=== PATIENT | female | born 1960 | race African-American/Black ===

== ENCOUNTER 2017-01-28 11:09 | Inpatient (IN) | payer OTHER ==
[2017-01-28 13:04] VITALS: BMI 18.6
--- NOTE | 2017-01-28 16:28 | HP ---
COWS - Scale Resting Pulse: 0= MO 80 or Below Sweatin=Flushed/Facial Moisture Restless Observation: 3= Extraneous Movement Pupil Size: 2= Moderately Dilated Bone or Joint Aches: 2= Severe Diffuse Aches Runny Nose/ Eye Tearin= Runny Nose/Eyes GI Upset > 30mins: 3= Vomiting/Diarrhea Tremor Observation: 2= Slight Tremor Visible Yawning Observation: 2= >3x During Session Anxiety or Irritability: 2=Irritable/Anxious Goose Flesh Skin: 0=Smooth Skin COWS Score: 20 Admission ROS BHS - HPI Chief Complaint: i need help to stop using heroin and cocaine Allergies/Adverse Reactions: Allergies Allergy/AdvReac Type Severity Reaction Status Date / Time aspirin Allergy Severe Swelling Verified 01/28/17 16:17 History of Present Illness: this 56 years old female with heroin,cocaine dependence,withdrawal symptom,last detox [facility] 11/02 weight loss seizure last 2015 depression hiv since 1985 longest period of sobriety 4 years Exam Limitations: No Limitations - Ebola screening Have you traveled outside of the country in the last 21 days: No Have you been sick,other than usual withdrawal symptoms: No - Review of Systems Constitutional: Chills, Loss of Appetite, Malaise, Night Sweats, Changes in sleep, Weakness, Unintentional Wgt. Loss EENT: reports: Tearing, Nose Congestion, Other (meminished hearing left) Respiratory: reports: No Symptoms reported, Other (asthma) GI: reports: Diarrhea, Nausea, Vomiting, Abdominal cramping : reports: No Symptoms Reported Musculoskeletal: reports: Back Pain, Joint Pain, Muscle Pain, Joint Stiffness Integumentary: reports: Dryness Neuro: reports: Headache, Tremors Endocrine: reports: No Symptoms Reported Hematology: reports: Anemia Psychiatric: reports: No Sypmtoms Reported, Judgement Intact, Mood/Affect Appropiate, Orientated x3, Depressed Patient History - Patient Medical History Hx Anemia: Yes (WAS ON IRON PILL BUT RAN OUT) Hx Asthma: Yes (albuterol inhaler) Hx Chronic Obstructive Pulmonary Disease (COPD): Yes (on symbicort) Hx Cancer: No Hx Cardiac Disorders: No Hx Congestive Heart Failure: No Hx Hypertension: Yes (on med) Hx Hypercholesterolemia: No Hx Pacemaker: No HX Cerebrovascular Accident: No Hx Seizures: No Hx Dementia: No Hx Diabetes: No Hx Gastrointestinal Disorders: No Hx Liver Disease: No Hx Genitourinary Disorders: No Hx Sexually Transmitted Disorders: No Hx Renal Disease (ESRD): No Hx Thyroid Disease: No Hx Human Immunodeficiency Virus (HIV): Yes (SINCE 1985--ON MEDS) Hx Hepatitis C: Yes (treated) Hx Depression: Yes Hx Suicide Attempt: Yes (cutter) Hx Bipolar Disorder: No Hx Schizophrenia: No Other Medical History: no suicidal,no homicidal - Patient Surgical History Past Surgical History: Yes Hx Neurologic Surgery: No Hx Cataract Extraction: No Hx Cardiac Surgery: No Hx Lung Surgery: No Hx Breast Surgery: No Hx Breast Biopsy: No Hx Abdominal Surgery: No Hx Appendectomy: No Hx Cholecystectomy: No Hx Genitourinary Surgery: No Hx Section: No Hx Orthopedic Surgery: Yes (RIGHT HAND--NERVE REPAIR IN 1970s and tendon) Anesthesia Reaction: No - PPD History Previous Implant?: Yes Documented Results: Negative w/proof Date: 03/13/15 Results: 0 mm PPD to be Administered?: Yes - Reproductive History Patient is a Female of Child Bearing Age (11 -55 yrs old): Yes Patient : No - Smoking Cessation Smoking history: Current every day smoker Have you smoked in the past 12 months: Yes Aproximately how many cigarettes per day: 3 Hx Chewing Tobacco Use: No Initiated information on smoking cessation: Yes 'Breaking Loose' booklet given: 01/28/17 - Substance & Tx. History Hx Alcohol Use: No Hx Substance Use: Yes Substance Use Type: Cocaine, Heroin Hx Substance Use Treatment: Yes ([facility] 11/02) - Substances Abused Heroin Route: Inhalation Frequency: Daily Amount used: 10 bags Age of first use: 24 Date of Last Use: 01/27/17 Cocaine Route: Smoking Frequency: 1-3 times last 30 days Amount used: $100 Age of first use: 30 Date of Last Use: 01/25/17 Family Disease History - Family Disease History Family Disease History: Other: Mother (HTN-), Brother (HTN) Admission Physical Exam S - Vital Signs Vital Signs: Vital Signs - 24 hr 01/28/17 12:59 Temperature 95.9 F L Pulse Rate 75 Respiratory 20 Rate Blood Pressure 153/104 - Physical General Appearance: Yes: Moderate Distress, Tremorous, Irritable, Sweating, Anxious HEENTM: Yes: Hearing grossly Normal, Normal ENT Inspection, NEHEMIAS, Pharynx Normal , Nasal Congestion Respiratory: Yes: No Respiratory Distress, Wheezing Neck: Yes: Within Normal Limits, Supple, Trachea in good position Breast: Yes: Breast Exam Deferred Cardiology: Yes: Regular Rhythm, Regular Rate, S1, S2 Abdominal: Yes: Within Normal Limits, Normal Bowel Sounds, Non Tender, Soft Genitourinary: Yes: Within Normal Limits Back: Yes: Within Normal Limits, Normal Inspection, Muscle Spasm Musculoskeletal: Yes: Back pain, Joint Stiffness, Muscle Pain Extremities: Yes: Normal Range of Motion, Tremors Neurological: Yes: Within Normal Limits, forensics team director II-XII NML intact, Alert, Motor Strength 5/5 Integumentary: Yes: Dry Lymphatic: Yes: Within Normal Limits - Diagnostic (1) Anemia Current Visit: No Status: Chronic (2) Asthma Current Visit: No Status: Chronic Qualifiers: Asthma severity: mild intermittent Asthma complication type: uncomplicated Qualified Code(s): J45.20 - Mild intermittent asthma, uncomplicated (3) Cocaine dependence with withdrawal Current Visit: No Status: Chronic (4) GERD (gastroesophageal reflux disease) Current Visit: No Status: Chronic Qualifiers: Esophagitis presence: esophagitis presence not specified Qualified Code(s): K21.9 - Gastro-esophageal reflux disease without esophagitis (5) Hx of AIDS Current Visit: No Status: Chronic (6) Opioid dependence with withdrawal Current Visit: No Status: Chronic (7) PTSD (post-traumatic stress disorder) Current Visit: No Status: Chronic (8) COPD (chronic obstructive pulmonary disease) Current Visit: No Status: Chronic Qualifiers: COPD type: unspecified COPD Qualified Code(s): J44.9 - Chronic obstructive pulmonary disease, unspecified (9) Weight loss Current Visit: Yes Status: Acute Cleared for Admission S - Detox or Rehab [facility] Level of Care: Medically Managed Detox Regimen/Protocol: Methadone [facility] Breath Alcohol Content Breath Alcohol Content: 0 Urine Pregancy Test - Result Urine Test Results: Negative- NO Line Present Urine Drug Screen - Results Drug Screen Negative: No Urine Drug Screen Results: ADRI-Cocaine, OPI-Opiates
[2017-01-28] MEDS ORDERED: MAGNESIUM CITRATE 300 ML BOTTLE PO PRN (16:44)
[2017-01-28] MEDS ORDERED: guaiFENesin/D-METHORPHAN HB 10 ML UNIT-DOSE CUPS PO PRN (16:44)
[2017-01-28] MEDS ORDERED: MENTHOL/PHENOL 1 EACH UD MM PRN (16:44)
[2017-01-28] MEDS ORDERED: hydrOXYzine PAMOATE 25 MG CAPSULE (FP) PO PRN (16:44)
[2017-01-28] MEDS ORDERED: MAG HYDROX/AL HYDROX/SIMETH 30 ML UNIT-DOSE CUP PO PRN (16:44)
[2017-01-28] MEDS ORDERED: ACETAMINOPHEN 325 MG TABLET (FP) PO PRN (16:44)
[2017-01-28] MEDS ORDERED: MAGNESIUM HYDROX 2400MG/30ML ORAL SUSPENSION 30 ML CUP PO PRN (16:44)
[2017-01-28] MEDS ORDERED: P-EPHED 60MG/TRIPROLIDI 2.5MG TABLET PO PRN (16:44)
[2017-01-28] MEDS ORDERED: IBUPROFEN 400 MG TABLET (FP) PO PRN (16:44)
[2017-01-28] MEDS ORDERED: LOPERAMIDE HCL 2 MG CAPSULE PO PRN (16:44)
[2017-01-28] MEDS ORDERED: ALBUTEROL SO4 6.7 GM HFA INHALER IH PRN (16:48)
[2017-01-28] MEDS ORDERED: METHADONE HCL 10 MG TABLET (FOR DETOX USE ONLY) PO ONE ×2 (17:15→23:00)
[2017-01-28] MEDS: FERROUS SO4 325 MG TABLET (FP) PO SCH (17:56)
[2017-01-28] MEDS: diazePAM 5 MG TABLET PO PRN ×2 (17:56→22:36)
--- NOTE | 2017-01-28 21:05 | PN ---
BHS Progress Note Note: received nurse informed bp 158/112 administered methadone 10 mg and valium 10 mg bp 116/94 continue detox
[2017-01-28] MEDS ORDERED: diphenhydrAMINE HCL 50 MG CAPSULE PO PRN (22:00)
[2017-01-28] MEDS: GABAPENTIN 100 MG CAPSULE (FP) PO SCH (22:37)
[2017-01-28] MEDS: THIAMINE HCL 100 MG TABLET (FP) PO SCH (22:38)
[2017-01-28] MEDS: BUDESONIDE/FORMETEROL FUMARATE 160/4.5 mcg INHALER IH SCH (23:33)
[2017-01-29 00:22] LABS: URINE APPEARANCE SLCLOUDY; URINE BILIRUBIN NEGATIVE (NEGATIVE); URINE BLOOD NEGATIVE (NEGATIVE); URINE COLOR LTYELLOW; URINE GLUCOSE (UA) NEGATIVE (NEGATIVE); URINE KETONE NEGATIVE (NEGATIVE); URINE LEUK ESTERASE NEGATIVE (NEGATIVE); URINE NITRITE NEGATIVE (NEGATIVE); URINE UROBILINOGEN NEGATIVE E.U./dl (0.2-1.0)
[2017-01-29 01:23] LABS: URINE PROTEIN 2+ (NEGATIVE)
[2017-01-29 01:42] LABS: URINE BACTERIA RARE /hpf (NONE SEEN); URINE MUCUS RARE; URINE RBC 2 /hpf (0-3); URINE WBC 4 /hpf (3-5)
[2017-01-29] MEDS: diazePAM 5 MG TABLET PO PRN (02:46)
[2017-01-29] MEDS ORDERED: METHADONE HCL 10 MG TABLET (FOR DETOX USE ONLY) PO ONE (10:00)
[2017-01-29 10:41] LABS: MCH 29.5 pg (25.7-33.7); MCHC 33.9 g/dl (32.0-36.0); MEAN PLT VOLUME 8.9 fl (7.5-11.1); PLATELET COUNT 173 K/MM3 (134-434); RDW 16.6 % (11.6-15.6); WHITE BLOOD COUNT 5.2 K/mm3 (4.0-10.0)
[2017-01-29] MEDS: FERROUS SO4 325 MG TABLET (FP) PO SCH ×2 (10:51→18:24)
[2017-01-29] MEDS: PRENATAL VITAMINS W/ FOLIC ACID TABLET (FP) PO SCH (10:51)
[2017-01-29] MEDS: amLODIPine BESYLATE 10 MG TABLET (FP) PO SCH (10:51)
[2017-01-29] MEDS: BUDESONIDE/FORMETEROL FUMARATE 160/4.5 mcg INHALER IH SCH ×2 (10:54→22:34)
[2017-01-29 10:59] LABS: ALBUMIN 2.7 g/dl (3.4-5.0); BILIRUBIN,TOTAL 0.3 mg/dL (0.2-1.0); CALCIUM 8.4 mg/dL (8.5-10.1); COCKROFT - GAULT 16.065; CREATININE 2.6 mg/dL (0.55-1.02); TOT PROT 7.8 g/dl (6.4-8.2)
[2017-01-29] MEDS: DARUNAVIR ETHANOLATE 600 MG TAB PO SCH ×2 (12:15→22:34)
[2017-01-29] MEDS: ABACAVIR SULFATE 300 MG TABLET PO SCH (12:16)
[2017-01-29] MEDS: RITONAVIR 100 MG TABLET PO SCH ×2 (12:16→22:34)
[2017-01-29] MEDS: MEGESTROL ACETATE 40 MG TABLET PO SCH ×3 (12:18→23:42)
--- NOTE | 2017-01-29 14:06 | PN ---
BHS COWS - Scale Resting Pulse: 1= SD 81-100 Sweatin= Chills/Flushing Restless Observation: 3= Extraneous Movement Pupil Size: 1= Pupils >than Normal Bone or Joint Aches: 2= Severe Diffuse Aches Runny Nose/ Eye Tearin= Runny Nose/Eyes GI Upset > 30mins: 3= Vomiting/Diarrhea Tremor Observation of Outstretched Hands: 2= Slight Tremor Visible Yawning Observation: 1= 1-2x During Session Anxiety or Irritability: 2=Irritable/Anxious Goose Flesh Skin: 0=Smooth Skin COWS Score: 18 BHS Progress Note (SOAP) Subjective: ALERT,IRRITABLE,ANXIOUS,INTERRUPTED SLEEP,PAIN IN THE BODY AND BACK Objective: 01/29/17 14:03 Vital Signs Temperature 97.9 F 01/29/17 10:23 Pulse Rate 81 01/29/17 10:23 Respiratory Rate 20 01/29/17 10:23 Blood Pressure 109/74 01/29/17 10:23 O2 Sat by Pulse Oximetry (%) EKG NSR WITH SINUS ARRHYTHMIA Laboratory Last Values WBC 5.2 K/mm3 (4.0-10.0) D 01/29/17 08:00 RBC 4.22 M/mm3 (3.60-5.2) 01/29/17 08:00 Hgb 12.4 GM/dL (10.7-15.3) 01/29/17 08:00 Hct 36.7 % (32.4-45.2) 01/29/17 08:00 MCV 87.0 fl (80-96) 01/29/17 08:00 MCHC 33.9 g/dl (32.0-36.0) 01/29/17 08:00 RDW 16.6 % (11.6-15.6) H D 01/29/17 08:00 Plt Count 173 K/MM3 (134-434) D 01/29/17 08:00 MPV 8.9 fl (7.5-11.1) 01/29/17 08:00 Sodium 143 mmol/L (136-145) 01/29/17 08:00 Potassium 4.1 mmol/L (3.5-5.1) 01/29/17 08:00 Chloride 112 mmol/L (98-107) H 01/29/17 08:00 Carbon Dioxide 24 mmol/L (21-32) 01/29/17 08:00 Anion Gap 7 (8-16) L 01/29/17 08:00 BUN 29 mg/dL (7-18) H D 01/29/17 08:00 Creatinine 2.6 mg/dL (0.55-1.02) H D 01/29/17 08:00 Creat Clearance w eGFR 19.11 (>60) 01/29/17 08:00 Random Glucose 83 mg/dL (74-106) 01/29/17 08:00 Calcium 8.4 mg/dL (8.5-10.1) L 01/29/17 08:00 Total Bilirubin 0.3 mg/dL (0.2-1.0) D 01/29/17 08:00 AST 30 U/L (15-37) D 01/29/17 08:00 ALT 50 U/L (12-78) D 01/29/17 08:00 Alkaline Phosphatase 68 U/L (45-117) D 01/29/17 08:00 Total Protein 7.8 g/dl (6.4-8.2) 01/29/17 08:00 Albumin 2.7 g/dl (3.4-5.0) L 01/29/17 08:00 Urine Color Ltyellow 01/28/17 21:16 Urine Appearance Slcloudy 01/28/17 21:16 Urine pH 6.0 (5.0-8.0) 01/28/17 21:16 Ur Specific [place] 1.012 (1.001-1.035) 01/28/17 21:16 Urine Protein 2+ (NEGATIVE) H 01/28/17 21:16 Urine Glucose (UA) Negative (NEGATIVE) 01/28/17 21:16 Urine Ketones Negative (NEGATIVE) 01/28/17 21:16 Urine Blood Negative (NEGATIVE) 01/28/17 21:16 Urine Nitrite Negative (NEGATIVE) 01/28/17 21:16 Urine Bilirubin Negative (NEGATIVE) 01/28/17 21:16 Urine Urobilinogen Negative E.U./dl (0.2-1.0) 01/28/17 21:16 Ur Leukocyte Esterase Negative (NEGATIVE) 01/28/17 21:16 Urine RBC 2 /hpf (0-3) 01/28/17 21:16 Urine WBC 4 /hpf (3-5) 01/28/17 21:16 Ur Epithelial Cells Few /hpf (FEW) 01/28/17 21:16 Urine Bacteria Rare /hpf (NONE SEEN) 01/28/17 21:16 Urine Mucus Rare 01/28/17 21:16 RPR Titer Nonreactive (NONREACTIVE) 01/29/17 08:00 Assessment: 01/29/17 14:05 WITHDRAWAL SYMPTOM Plan: CONTINUE DETOX,ENCOURAGE ORAL FLUID,REPEAT CMP IN AM
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
[2017-01-29] MEDS: THIAMINE HCL 100 MG TABLET (FP) PO SCH (22:33)
[2017-01-29] MEDS: GABAPENTIN 100 MG CAPSULE (FP) PO SCH (22:34)
[2017-01-30] MEDS: FERROUS SO4 325 MG TABLET (FP) PO SCH ×2 (07:03→17:29)
[2017-01-30] MEDS ORDERED: METHADONE HCL 5 MG TABLET (FOR DETOX USE ONLY) PO ONE (10:00)
[2017-01-30] MEDS: amLODIPine BESYLATE 10 MG TABLET (FP) PO SCH (11:04)
[2017-01-30] MEDS: PRENATAL VITAMINS W/ FOLIC ACID TABLET (FP) PO SCH (11:04)
[2017-01-30] MEDS: ABACAVIR SULFATE 300 MG TABLET PO SCH (11:04)
[2017-01-30] MEDS: BUDESONIDE/FORMETEROL FUMARATE 160/4.5 mcg INHALER IH SCH ×2 (11:04→23:46)
[2017-01-30] MEDS: DARUNAVIR ETHANOLATE 600 MG TAB PO SCH ×2 (11:05→22:52)
[2017-01-30] MEDS: MEGESTROL ACETATE 40 MG TABLET PO SCH ×2 (11:05→22:52)
[2017-01-30] MEDS: RITONAVIR 100 MG TABLET PO SCH ×2 (11:05→22:52)
--- NOTE | 2017-01-30 14:39 | PN ---
BHS COWS - Scale Resting Pulse: 1= SC 81-100 Sweatin= Chills/Flushing Restless Observation: 3= Extraneous Movement Pupil Size: 1= Pupils >than Normal Bone or Joint Aches: 2= Severe Diffuse Aches Runny Nose/ Eye Tearin= Runny Nose/Eyes GI Upset > 30mins: 2= Nausea/Diarrhea Tremor Observation of Outstretched Hands: 2= Slight Tremor Visible Yawning Observation: 1= 1-2x During Session Anxiety or Irritability: 2=Irritable/Anxious Goose Flesh Skin: 0=Smooth Skin COWS Score: 17 BHS Progress Note (SOAP) Subjective: ALERT,IRRITABLE,ANXIOUS,INTERRUPTED SLEEP Objective: 01/30/17 14:37 Vital Signs Temperature 97.2 F L 01/30/17 14:20 Pulse Rate 88 01/30/17 14:20 Respiratory Rate 16 01/30/17 14:20 Blood Pressure 138/79 01/30/17 14:20 O2 Sat by Pulse Oximetry (%) REPEAT CMP HEMOLYSED , WILL REPEAT CMP IN AM Assessment: 01/30/17 14:38 WITHDRAWAL SYMPTOM Plan: CONTINUE DETOX
[2017-01-30] MEDS: THIAMINE HCL 100 MG TABLET (FP) PO SCH (22:51)
[2017-01-30] MEDS: GABAPENTIN 100 MG CAPSULE (FP) PO SCH (22:52)
[2017-01-31] MEDS: FERROUS SO4 325 MG TABLET (FP) PO SCH ×2 (07:05→17:59)
--- NOTE | 2017-01-31 08:47 | EKG ---
Test Reason : Blood Pressure : / mmHG Vent. Rate : 066 BPM Atrial Rate : 066 BPM P-R Int : 138 ms QRS Dur : 076 ms QT Int : 446 ms P-R-T Axes : 065 032 054 degrees QTc Int : 467 ms NORMAL SINUS RHYTHM WITH SINUS ARRHYTHMIA NORMAL ECG NO PREVIOUS ECGS AVAILABLE Confirmed by NIC PARIKH MD ([id number]) on 01/31/2017 8:47:31 AM Referred By: Confirmed By:NIC PARIKH MD
[2017-01-31] MEDS ORDERED: METHADONE HCL 5 MG TABLET (FOR DETOX USE ONLY) PO ONE (10:00)
[2017-01-31 10:25] LABS: ALBUMIN 3.1 g/dl (3.4-5.0); BILIRUBIN,TOTAL 0.4 mg/dL (0.2-1.0)
[2017-01-31 10:32] LABS: CALCIUM 8.3 mg/dL (8.5-10.1); COCKROFT - GAULT 13.005; CREATININE 3.2 mg/dL (0.55-1.02); TOT PROT 8.5 g/dl (6.4-8.2)
[2017-01-31] MEDS: amLODIPine BESYLATE 10 MG TABLET (FP) PO SCH (10:55)
[2017-01-31] MEDS: PRENATAL VITAMINS W/ FOLIC ACID TABLET (FP) PO SCH (10:55)
[2017-01-31] MEDS: DARUNAVIR ETHANOLATE 600 MG TAB PO SCH ×2 (10:56→22:43)
[2017-01-31] MEDS: BUDESONIDE/FORMETEROL FUMARATE 160/4.5 mcg INHALER IH SCH ×2 (10:56→22:44)
[2017-01-31] MEDS: RITONAVIR 100 MG TABLET PO SCH ×2 (10:56→22:43)
[2017-01-31] MEDS: ABACAVIR SULFATE 300 MG TABLET PO SCH (10:57)
--- NOTE | 2017-01-31 11:27 | PN ---
BHS Progress Note (SOAP) Subjective: interrupted sleep, sweats , sore in nose Objective: 01/31/17 11:25 Vital Signs Temperature 98.2 F 01/31/17 06:00 Pulse Rate 80 01/31/17 06:00 Respiratory Rate 16 01/31/17 06:00 Blood Pressure 114/69 01/31/17 06:00 O2 Sat by Pulse Oximetry (%) Laboratory Tests 01/28/17 01/29/17 01/29/17 21:16 08:00 08:00 WBC 5.2 D RBC 4.22 Hgb 12.4 Hct 36.7 MCV 87.0 MCHC 33.9 RDW 16.6 H D Plt Count 173 D MPV 8.9 Sodium 143 Potassium 4.1 Chloride 112 H Carbon Dioxide 24 Anion Gap 7 L BUN 29 H D Creatinine 2.6 H D Creat Clearance w eGFR 19.11 Random Glucose 83 Calcium 8.4 L Total Bilirubin 0.3 D AST 30 D ALT 50 D Alkaline Phosphatase 68 D Total Protein 7.8 Albumin 2.7 L Urine Color Ltyellow Urine Appearance Slcloudy Urine pH 6.[address].012 Urine Protein 2+ H Urine Glucose (UA) Negative Urine Ketones Negative Urine Blood Negative Urine Nitrite Negative Urine Bilirubin Negative Urine Urobilinogen Negative Ur Leukocyte Esterase Negative Urine RBC 2 Urine WBC 4 Ur Epithelial Cells Few Urine Bacteria Rare Urine Mucus Rare RPR Titer 01/29/17 01/30/17 01/31/17 08:00 08:00 07:00 WBC RBC Hgb Hct MCV MCHC RDW Plt Count MPV Sodium Cancelled 140 Potassium Cancelled 5.0 D Chloride Cancelled 110 H Carbon Dioxide Cancelled 22 Anion Gap Cancelled 8 BUN Cancelled 49 H D Creatinine Cancelled 3.2 H D Creat Clearance w eGFR Cancelled 15.04 Random Glucose Cancelled 95 Calcium Cancelled 8.3 L Total Bilirubin Cancelled 0.4 D AST Cancelled 19 D ALT Cancelled 41 Alkaline Phosphatase Cancelled 72 Total Protein Cancelled 8.5 H Albumin Cancelled 3.1 L Urine Color Urine Appearance Urine pH Ur Specific [address] Urine Protein Urine Glucose (UA) Urine Ketones Urine Blood Urine Nitrite Urine Bilirubin Urine Urobilinogen Ur Leukocyte Esterase Urine RBC Urine WBC Ur Epithelial Cells Urine Bacteria Urine Mucus RPR Titer Nonreactive pt aox3 in n ad ambulating Assessment: 01/31/17 11:25 withdrawal sx's renal failure hiv 01/31/17 11:30 Plan: cont detox increase fluids d/c mg products repeat sma7 renal f/up at d/c
[2017-01-31] MEDS: MEGESTROL ACETATE 40 MG TABLET PO SCH (12:50)
[2017-01-31] MEDS: MEGESTROL ACETATE 400 MG/10 ML UNIT DOSE CUP PO SCH (16:45)
[2017-01-31] MEDS: GABAPENTIN 100 MG CAPSULE (FP) PO SCH (22:43)
[2017-01-31] MEDS: THIAMINE HCL 100 MG TABLET (FP) PO SCH (22:43)
[2017-01-31] MEDS: BACITRACIN 0.9 GM PACKET TP SCH (22:44)
[2017-02-01] MEDS: MEGESTROL ACETATE 400 MG/10 ML UNIT DOSE CUP PO SCH ×2 (07:53→17:49)
[2017-02-01] MEDS: FERROUS SO4 325 MG TABLET (FP) PO SCH ×2 (07:53→17:48)
--- NOTE | 2017-02-01 09:31 | PN ---
BHS Progress Note (SOAP) Subjective: interrupted sleep, sweats insomnia , sob -asthma Objective: 02/01/17 09:26 Vital Signs Temperature 97.9 F 02/01/17 06:31 Pulse Rate 86 02/01/17 06:31 Respiratory Rate 18 02/01/17 06:31 Blood Pressure 130/79 02/01/17 06:31 O2 Sat by Pulse Oximetry (%) Laboratory Tests 01/28/17 01/29/17 01/29/17 21:16 08:00 08:00 WBC 5.2 D RBC 4.22 Hgb 12.4 Hct 36.7 MCV 87.0 MCHC 33.9 RDW 16.6 H D Plt Count 173 D MPV 8.9 Sodium 143 Potassium 4.1 Chloride 112 H Carbon Dioxide 24 Anion Gap 7 L BUN 29 H D Creatinine 2.6 H D Creat Clearance w eGFR 19.11 Random Glucose 83 Calcium 8.4 L Total Bilirubin 0.3 D AST 30 D ALT 50 D Alkaline Phosphatase 68 D Total Protein 7.8 Albumin 2.7 L Urine Color Ltyellow Urine Appearance Slcloudy Urine pH 6.0 Ur Specific [place] 1.012 Urine Protein 2+ H Urine Glucose (UA) Negative Urine Ketones Negative Urine Blood Negative Urine Nitrite Negative Urine Bilirubin Negative Urine Urobilinogen Negative Ur Leukocyte Esterase Negative Urine RBC 2 Urine WBC 4 Ur Epithelial Cells Few Urine Bacteria Rare Urine Mucus Rare RPR Titer 01/29/17 01/30/17 01/31/17 08:00 08:00 07:00 WBC RBC Hgb Hct MCV MCHC RDW Plt Count MPV Sodium Cancelled 140 Potassium Cancelled 5.0 D Chloride Cancelled 110 H Carbon Dioxide Cancelled 22 Anion Gap Cancelled 8 BUN Cancelled 49 H D Creatinine Cancelled 3.2 H D Creat Clearance w eGFR Cancelled 15.04 Random Glucose Cancelled 95 Calcium Cancelled 8.3 L Total Bilirubin Cancelled 0.4 D AST Cancelled 19 D ALT Cancelled 41 Alkaline Phosphatase Cancelled 72 Total Protein Cancelled 8.5 H Albumin Cancelled 3.1 L Urine Color Urine Appearance Urine pH Ur Specific [place] Urine Protein Urine Glucose (UA) Urine Ketones Urine Blood Urine Nitrite Urine Bilirubin Urine Urobilinogen Ur Leukocyte Esterase Urine RBC Urine WBC Ur Epithelial Cells Urine Bacteria Urine Mucus RPR Titer Nonreactive pt aox3 in nad ambulating lungs - clear to a/p repeat sma7 -pending pulse ox 95%0n RA 02/01/17 09:28 Assessment: 02/01/17 09:28 withdrawal sx' renal failure -pt aware of renal problem -to f/up with renal clinic at d/c Plan: cont detox duoneb if needed f/up with renal clinic at d/c d/c in am
[2017-02-01 09:54] LABS: CALCIUM 8.2 mg/dL (8.5-10.1)
[2017-02-01 09:56] LABS: COCKROFT - GAULT 13.94
[2017-02-01] MEDS ORDERED: METHADONE HCL 10 MG TABLET (FOR DETOX USE ONLY) PO ONE (10:00)
[2017-02-01] MEDS: amLODIPine BESYLATE 10 MG TABLET (FP) PO SCH (10:44)
[2017-02-01] MEDS: RITONAVIR 100 MG TABLET PO SCH ×2 (10:44→22:31)
[2017-02-01] MEDS: ABACAVIR SULFATE 300 MG TABLET PO SCH (10:45)
[2017-02-01] MEDS: DARUNAVIR ETHANOLATE 600 MG TAB PO SCH ×2 (10:45→22:30)
[2017-02-01] MEDS: PRENATAL VITAMINS W/ FOLIC ACID TABLET (FP) PO SCH (10:45)
[2017-02-01] MEDS: BUDESONIDE/FORMETEROL FUMARATE 160/4.5 mcg INHALER IH SCH ×2 (10:45→22:30)
[2017-02-01] MEDS: BACITRACIN 0.9 GM PACKET TP SCH ×2 (10:48→22:29)
[2017-02-01] MEDS ORDERED: HYDROCORTISONE ACETATE 25 MG/SUPP.RECT RC ONE (11:05)
[2017-02-01] MEDS: CLOTRIMAZOLE 10 MG TROCHE (FP) PO SCH ×4 (13:30→22:31)
[2017-02-01] MEDS ORDERED: ALBUTEROL SO4 2.5/IPRATROPIUM 0.5 INH SOL 3 ML VIAL.NEB. NEB PRN (13:47)
[2017-02-01] MEDS ORDERED: predniSONE 20 MG TABLET (UD) PO ONE (13:49)
--- NOTE | 2017-02-01 13:53 | PN ---
BHS Progress Note (SOAP) Subjective: sob , i have asthma Objective: 02/01/17 13:51 Vital Signs Temperature 97.9 F 02/01/17 10:00 Pulse Rate 87 02/01/17 10:00 Respiratory Rate 16 02/01/17 10:00 Blood Pressure 133/83 02/01/17 10:00 O2 Sat by Pulse Oximetry (%) pulse ox on RA 87 lungs + wheezes , rhonchi 02/02/17 08:39 Assessment: 02/01/17 13:52 acute exacerbation of b. asthma 02/02/17 08:39 Plan: duoneb nebul. tx prednisone 40mg once fluids
[2017-02-01] MEDS ORDERED: FLUCONAZOLE 100 MG TABLET (UD) PO ONE (17:00)
[2017-02-01] MEDS: THIAMINE HCL 100 MG TABLET (FP) PO SCH (22:31)
[2017-02-01] MEDS: GABAPENTIN 100 MG CAPSULE (FP) PO SCH (22:31)
[2017-02-01 23:28] VITALS: PULSE 85
[2017-02-02] MEDS: CLOTRIMAZOLE 10 MG TROCHE (FP) PO SCH (05:36)
[2017-02-02] MEDS ORDERED: METHADONE HCL 5 MG TABLET (FOR DETOX USE ONLY) PO ONE (06:00)
[2017-02-02 06:26] VITALS: BP 120/63; TEMP 99.3
[2017-02-02] MEDS: FERROUS SO4 325 MG TABLET (FP) PO SCH (08:06)
[2017-02-02] MEDS: MEGESTROL ACETATE 400 MG/10 ML UNIT DOSE CUP PO SCH (08:07)
--- NOTE | 2017-02-02 08:45 | DS ---
[facility] Detox Discharge Summary Admission Date: 01/28/17 Discharge Date: 02/02/17 - History Present History: Cannabis Dependence, Cocaine Dependence, Opioid Dependence - Physical Exam Results Vital Signs: Vital Signs Temperature 99.3 F 02/02/17 06:00 Pulse Rate 85 02/02/17 06:00 Respiratory Rate 16 02/02/17 06:00 Blood Pressure 120/63 02/02/17 06:00 O2 Sat by Pulse Oximetry (%) - Treatment Hospital Course: Detox Protocol Followed, Detoxed Safely, Responded well, Discharged Condition Good - Medication Discharge Medications: Ambulatory Orders Albuterol Sulfate Inhaler - [Ventolin HFA Inhaler -] 2 inh PO Q4H PRN #1 inh Budesonide/Formeterol Fumarate [SYMBICORT 160/4.5mcg -] 1 inh PO BID #30 inhaler 05/04/15 Abacavir Sulfate [Abacavir] 300 mg PO DAILY 01/28/17 Amlodipine Besylate [Norvasc -] 10 mg PO DAILY 01/28/17 Azithromycin [Zithromax -] 600 mg PO DAILY 01/28/17 Darunavir Ethanolate [Prezista -] 600 mg PO BID 01/28/17 Ferrous Sulfate [Feosol] 325 mg PO BID 01/28/17 Gabapentin [Neurontin -] 100 mg PO HS 01/28/17 Megestrol Acetate [Megace -] 40 mg PO BID 01/28/17 Olanzapine [Zyprexa -] 10 mg PO HS 01/28/17 Ritonavir [Norvir -] 100 mg PO BID 01/28/17 Trazodone HCl [Desyrel -] 50 mg PO HS 01/28/17 - Diagnosis (1) Cocaine dependence with withdrawal Current Visit: Yes Status: Chronic (2) Nicotine dependence Current Visit: Yes Status: Chronic Qualifiers: Nicotine product type: cigarettes Substance use status: uncomplicated Qualified Code(s): F17.210 - Nicotine dependence, cigarettes, uncomplicated (3) Opioid dependence with withdrawal Current Visit: Yes Status: Chronic (4) COPD (chronic obstructive pulmonary disease) Current Visit: Yes Status: Chronic Qualifiers: COPD type: unspecified COPD Qualified Code(s): J44.9 - Chronic obstructive pulmonary disease, unspecified (5) GERD (gastroesophageal reflux disease) Current Visit: Yes Status: Chronic Qualifiers: Esophagitis presence: without esophagitis Qualified Code(s): K21.9 - Gastro-esophageal reflux disease without esophagitis (6) HIV (human immunodeficiency virus infection) Current Visit: Yes Status: Chronic (7) Cannabis abuse Current Visit: Yes Status: Chronic (8) Asthma Current Visit: Yes Status: Chronic Qualifiers: Asthma severity: mild intermittent Asthma complication type: uncomplicated Qualified Code(s): J45.20 - Mild intermittent asthma, uncomplicated - AMA Did Patient Leave Against Medical Advice: No (pt needs to f/up with PMD for multiple medical problems)
[2017-02-02] MEDS: amLODIPine BESYLATE 10 MG TABLET (FP) PO SCH (09:38)
[2017-02-02] MEDS: PRENATAL VITAMINS W/ FOLIC ACID TABLET (FP) PO SCH (09:38)
[2017-02-02] MEDS: ABACAVIR SULFATE 300 MG TABLET PO SCH (09:39)
[2017-02-02] MEDS: DARUNAVIR ETHANOLATE 600 MG TAB PO SCH (09:39)
[2017-02-02] MEDS: RITONAVIR 100 MG TABLET PO SCH (09:39)
[2017-02-02] MEDS: BUDESONIDE/FORMETEROL FUMARATE 160/4.5 mcg INHALER IH SCH (09:41)
[2017-02-02] MEDS ORDERED: FLUCONAZOLE 100 MG TABLET (UD) PO SCH (10:00)
== END 2017-02-02 09:53 | disposition home or self-care (01) | DRG 773 ==
LOC: YASAS 11:09 → Y6N 16:57
PROVIDERS: ADMIT Internal Medicine; ATTEND Internal Medicine
PROC: HZ2ZZZZ Detoxification Services for Substance Abuse Treatment (ICD-10-PCS; principal; 2017-02-02)
DX: F11.23 Opioid dependence with withdrawal (principal); F14.20 Cocaine dependence, uncomplicated; F17.210 Nicotine dependence, cigarettes, uncomplicated; F12.10 Cannabis abuse, uncomplicated; F43.10 Post-traumatic stress disorder, unspecified; J45.20 Mild intermittent asthma, uncomplicated; J44.9 Chronic obstructive pulmonary disease, unspecified; K21.9 Gastro-esophageal reflux disease without esophagitis; Z21 Asymptomatic human immunodeficiency virus [HIV] infection status; R63.4 Abnormal weight loss; Z68.1 Body mass index [BMI] 19.9 or less, adult
CPT/HCPCS: 36415; 80048; 80053; 81003; 81015; 85027; 86593; 93005; 93010; J8999

== ENCOUNTER 2017-03-09 09:26 | Inpatient (IN) | payer OTHER ==
[2017-03-09 10:36] VITALS: BMI 18.6
--- NOTE | 2017-03-09 12:08 | HP ---
COWS - Scale Resting Pulse: 1= MD 81-100 Sweatin=Flushed/Facial Moisture Restless Observation: 3= Extraneous Movement Pupil Size: 2= Moderately Dilated Bone or Joint Aches: 2= Severe Diffuse Aches Runny Nose/ Eye Tearin= Runny Nose/Eyes GI Upset > 30mins: 3= Vomiting/Diarrhea Tremor Observation: 2= Slight Tremor Visible Yawning Observation: 2= >3x During Session Anxiety or Irritability: 2=Irritable/Anxious Goose Flesh Skin: 0=Smooth Skin COWS Score: 21 Admission ROS BHS - HPI Chief Complaint: i need help to stop using heroin and cocaine Allergies/Adverse Reactions: Allergies Allergy/AdvReac Type Severity Reaction Status Date / Time aspirin Allergy Severe Swelling Verified 03/09/17 11:47 History of Present Illness: this 56 years old female with heroin and cocaine dependence,seeking help to stop using drugs,last detox 01/28/17 to 02/02/17 weight loss avascular necrosis left hip ambulation with walker longest period of sobriety 4 years Exam Limitations: No Limitations - Ebola screening Have you traveled outside of the country in the last 21 days: No Have you had contact with anyone from an Ebola affected area: No Have you been sick,other than usual withdrawal symptoms: No Do you have a fever: No - Review of Systems Constitutional: Diaphoresis, Loss of Appetite, Malaise, Night Sweats, Changes in sleep, Weakness, Unintentional Wgt. Loss EENT: reports: Tearing, Nose Congestion Respiratory: reports: No Symptoms reported Cardiac: reports: No Symptoms Reported GI: reports: Diarrhea, Nausea, Vomiting, Abdominal cramping : reports: No Symptoms Reported Musculoskeletal: reports: Back Pain, Joint Pain, Muscle Pain, Joint Stiffness Integumentary: reports: Dryness Neuro: reports: Headache, Tremors Endocrine: reports: No Symptoms Reported Hematology: reports: No Symptoms Reported, Other (hiv) Psychiatric: reports: No Sypmtoms Reported, Judgement Intact, Mood/Affect Appropiate, Orientated x3 Patient History - Patient Medical History Hx Anemia: Yes (WAS ON IRON PILL BUT RAN OUT) Hx Asthma: Yes Hx Chronic Obstructive Pulmonary Disease (COPD): Yes Hx Cancer: No Hx Cardiac Disorders: No Hx Congestive Heart Failure: No Hx Hypertension: Yes (Pt is on meds.) Hx Hypercholesterolemia: No Hx Pacemaker: No HX Cerebrovascular Accident: No Hx Seizures: Yes (DRUG RELATED SEIZURES LAST 1 MONTH AGO) Hx Dementia: No Hx Diabetes: No Hx Gastrointestinal Disorders: No Hx Liver Disease: No Hx Genitourinary Disorders: No Hx Sexually Transmitted Disorders: No Hx Renal Disease (ESRD): No Hx Thyroid Disease: No Hx Human Immunodeficiency Virus (HIV): Yes (SINCE 1985--ON MEDS) Hx Hepatitis C: Yes (treated) Hx Depression: Yes (insomnia) Hx Suicide Attempt: Yes (cutter at age 36) Hx Bipolar Disorder: No Hx Schizophrenia: No Other Medical History: no suicidal,no suicidal - Patient Surgical History Past Surgical History: Yes Hx Neurologic Surgery: No Hx Cataract Extraction: No Hx Cardiac Surgery: No Hx Lung Surgery: No Hx Breast Surgery: No Hx Breast Biopsy: No Hx Abdominal Surgery: No Hx Appendectomy: No Hx Cholecystectomy: No Hx Genitourinary Surgery: No Hx Section: No Hx Orthopedic Surgery: Yes (RIGHT HAND--NERVE REPAIR IN 1970s and tendon) Anesthesia Reaction: No - PPD History Previous Implant?: Yes Documented Results: Negative w/o proof Implanted On Prior [facility] Admission?: Yes Date: 03/13/15 Results: 0 MM PPD to be Administered?: Yes - Reproductive History Patient is a Female of Child Bearing Age (11 -55 yrs old): Yes Patient : No - Smoking Cessation Smoking history: Current every day smoker Have you smoked in the past 12 months: Yes Aproximately how many cigarettes per day: 3 Hx Chewing Tobacco Use: No Initiated information on smoking cessation: Yes 'Breaking Loose' booklet given: 03/09/17 - Substance & Tx. History Hx Alcohol Use: No Hx Substance Use: Yes Substance Use Type: Cocaine, Heroin Hx Substance Use Treatment: Yes (last detox 01/28/17 to 02/02/17) - Substances Abused Heroin Route: Inhalation Frequency: Daily Amount used: 10 BAGS Age of first use: 30 Date of Last Use: 03/08/17 Crack Route: Smoking Frequency: 3-6 times per week Amount used: $100 Age of first use: 24 Date of Last Use: 03/07/17 Family Disease History - Family Disease History Family Disease History: Other: Mother (HTN-), Brother (HTN) Admission Physical Exam BHS - Vital Signs Vital Signs: Vital Signs - 24 hr 03/09/17 10:27 Temperature 98.1 F Pulse Rate 84 Respiratory 18 Rate Blood Pressure 141/91 - Physical General Appearance: Yes: Moderate Distress, Tremorous, Irritable, Sweating, Anxious HEENTM: Yes: Normal ENT Inspection, Normocephalic, Normal Voice, NEHEMIAS Respiratory: Yes: Lungs Clear, Normal Breath Sounds, No Respiratory Distress Neck: Yes: Within Normal Limits Breast: Yes: Breast Exam Deferred Cardiology: Yes: Within Normal Limits, Regular Rhythm, Regular Rate, S1, S2 Abdominal: Yes: Within Normal Limits, Normal Bowel Sounds, Non Tender, Flat, Soft Genitourinary: Yes: Within Normal Limits Back: Yes: Normal Inspection, Muscle Spasm Musculoskeletal: Yes: Back pain, Joint Stiffness, Muscle Pain Extremities: Yes: Within Normal Limits, Normal Range of Motion, Tremors Neurological: Yes: sheriff deputy II-XII NML intact, Fully Oriented, Alert, Motor Strength 5/5 Integumentary: Yes: Dry Lymphatic: Yes: Within Normal Limits - Diagnostic (1) Weight loss Current Visit: No Status: Acute (2) Anemia Current Visit: No Status: Chronic (3) Asthma Current Visit: No Status: Chronic Qualifiers: Asthma severity: mild intermittent Asthma complication type: uncomplicated Qualified Code(s): J45.20 - Mild intermittent asthma, uncomplicated (4) COPD (chronic obstructive pulmonary disease) Current Visit: No Status: Chronic Qualifiers: COPD type: unspecified COPD Qualified Code(s): J44.9 - Chronic obstructive pulmonary disease, unspecified (5) Cocaine dependence with withdrawal Current Visit: No Status: Chronic (6) Nicotine dependence Current Visit: No Status: Chronic Qualifiers: Nicotine product type: cigarettes Substance use status: uncomplicated Qualified Code(s): F17.210 - Nicotine dependence, cigarettes, uncomplicated (7) Opioid dependence with withdrawal Current Visit: No Status: Chronic (8) Walker as ambulation aid Current Visit: Yes Status: Acute Cleared for Admission BHS - Detox or Rehab S Level of Care: Medically Managed Detox Regimen/Protocol: Methadone S Breath Alcohol Content Breath Alcohol Content: 0 Urine Pregancy Test - Result Urine Test Results: Negative- NO Line Present Urine Drug Screen - Results Drug Screen Negative: No Urine Drug Screen Results: ADRI-Cocaine, OPI-Opiates, BZO-Benzodiazepines
[2017-03-09] MEDS ORDERED: MAGNESIUM HYDROX 2400MG/30ML ORAL SUSPENSION 30 ML CUP PO PRN (12:50)
[2017-03-09] MEDS ORDERED: MENTHOL/PHENOL 1 EACH UD MM PRN (12:50)
[2017-03-09] MEDS ORDERED: guaiFENesin/D-METHORPHAN HB 10 ML UNIT-DOSE CUPS PO PRN (12:50)
[2017-03-09] MEDS ORDERED: MAG HYDROX/AL HYDROX/SIMETH 30 ML UNIT-DOSE CUP PO PRN (12:50)
[2017-03-09] MEDS ORDERED: hydrOXYzine PAMOATE 25 MG CAPSULE (FP) PO PRN (12:50)
[2017-03-09] MEDS ORDERED: LOPERAMIDE HCL 2 MG CAPSULE PO PRN (12:50)
[2017-03-09] MEDS ORDERED: MAGNESIUM CITRATE 300 ML BOTTLE PO PRN (12:50)
[2017-03-09] MEDS ORDERED: P-EPHED 60MG/TRIPROLIDI 2.5MG TABLET PO PRN (12:50)
[2017-03-09] MEDS ORDERED: METHADONE HCL 10 MG TABLET (FOR DETOX USE ONLY) PO ONE ×2 (14:15→23:00)
[2017-03-09] MEDS: diazePAM 5 MG TABLET PO PRN ×2 (15:19→22:18)
[2017-03-09] MEDS: DARUNAVIR ETHANOLATE 600 MG TAB PO SCH (17:54)
[2017-03-09] MEDS: RITONAVIR 100 MG TABLET PO SCH (17:55)
[2017-03-09] MEDS: FERROUS SO4 325 MG TABLET (FP) PO SCH (17:56)
[2017-03-09] MEDS: MEGESTROL ACETATE 400 MG/10 ML UNIT DOSE CUP PO SCH (17:59)
[2017-03-09 18:44] LABS: URINE APPEARANCE CLEAR; URINE BILIRUBIN NEGATIVE (NEGATIVE); URINE BLOOD NEGATIVE (NEGATIVE); URINE COLOR YELLOW; URINE GLUCOSE (UA) NEGATIVE (NEGATIVE); URINE KETONE NEGATIVE (NEGATIVE); URINE LEUK ESTERASE NEGATIVE (NEGATIVE); URINE NITRITE NEGATIVE (NEGATIVE); URINE UROBILINOGEN NEGATIVE E.U./dl (0.2-1.0)
[2017-03-09 18:58] LABS: URINE PROTEIN 2+ (NEGATIVE)
[2017-03-09 19:00] LABS: URINE BACTERIA RARE /hpf (NONE SEEN); URINE MUCUS RARE; URINE RBC 1 /hpf (0-3); URINE WBC 4 /hpf (3-5)
--- NOTE | 2017-03-09 19:12 | PN ---
S Progress Note Note: Psychiatry Attending's note : Patient is approached for psychiatric evaluation. Found to be sedated.Psychiatric interview is deferred.
[2017-03-09] MEDS: ALBUTEROL SO4 6.7 GM HFA INHALER IH PRN (19:32)
[2017-03-09] MEDS: BUDESONIDE/FORMETEROL FUMARATE 160/4.5 mcg INHALER IH SCH (22:17)
[2017-03-09] MEDS: THIAMINE HCL 100 MG TABLET (FP) PO SCH (22:18)
[2017-03-10] MEDS: diphenhydrAMINE HCL 50 MG CAPSULE PO PRN (00:25)
[2017-03-10] MEDS: ALBUTEROL SO4 6.7 GM HFA INHALER IH PRN (00:26)
[2017-03-10] MEDS: ACETAMINOPHEN 325 MG TABLET (FP) PO PRN ×2 (01:35→22:56)
[2017-03-10] MEDS: diazePAM 5 MG TABLET PO PRN ×2 (01:35→10:35)
[2017-03-10] MEDS: RITONAVIR 100 MG TABLET PO SCH ×2 (07:54→17:38)
[2017-03-10] MEDS: FERROUS SO4 325 MG TABLET (FP) PO SCH ×2 (07:54→17:38)
[2017-03-10] MEDS: DARUNAVIR ETHANOLATE 600 MG TAB PO SCH ×2 (07:54→17:38)
[2017-03-10] MEDS: MEGESTROL ACETATE 400 MG/10 ML UNIT DOSE CUP PO SCH ×2 (07:54→17:38)
--- NOTE | 2017-03-10 08:45 | CONSULT ---
[facility] Psychiatric Consult - Data Date of interview: 03/10/17 Admission source: [facility] Identifying data: This is 56 years old female with history of MDD, PTSD, multiple medical problems, intoxicated with: Cocaine, Heroin, Cannabis and Nicotine Substance Abuse History: - Smoking Cessation. Smoking history: Current every day smoker. Have you smoked in the past 12 months: Yes. Aproximately how many cigarettes per day: 3. Hx Chewing Tobacco Use: No. Initiated information on smoking cessation: Yes. 'Breaking Loose' booklet given: 03/09/17. - Substance & Tx. History. Hx Alcohol Use: No. Hx Substance Use: Yes. Substance Use Type : Cocaine, Heroin. Hx Substance Use Treatment: Yes (last detox 01/28/17 to ). - Substances Abused. Heroin. Route: Inhalation. Frequency: Daily. Amount used: 10 BAGS. Age of first use: 30. Date of Last Use: . Crack. Route: Smoking. Frequency: 3-6 times per week. Amount used: $ 100. Age of first use: 24. Date of Last Use: 03/07/17 Medical History: Patoient using walker to ambulate, Weight loss history, Asthma , Anemia history, COPD, GERD, HIV, AIDS, HTN. Psychiatric History: Patient reports to carry MDD, PTSD, , reports psychiatric admission on more then 10 years ago, reports taking prior to admission: Zyprexa 10mg po qhs. Trazodone 50mg po qhs Physical/Sexual Abuse/Trauma History: Unclear Additional Comment: Zyprexa 10mg po qhs. Trazodone 50mg po qhs Mental Status Exam - Mental Status Exam Alert and Oriented to: Person Cognitive Function: Fair Patient Appearance: Unkempt Mood: Nervous, Irritable Affect: Mood Congruent Patient Behavior: Impulsive, Talkative Speech Pattern: Excessive Voice Loudness: Mildly Soft/Quiet Thought Process: Circumstantial Thought Disorder: Being Controlled Hallucinations: Denies Suicidal Ideation: Denies Homicidal Ideation: Denies Insight/Judgement: Fair Sleep: Difficulty falling asleep Appetite: Weight loss Muscle strength/Tone: Mild Hypotonicity Gait/Station: Normal Additional Comments: Zyprexa 10mg po qhs. Trazodone 50mg po qhs Psychiatric Findings - Problem List ([place] 1, 2,3) (1) Cocaine dependence Current Visit: No Status: Acute Qualifiers: Substance use status: uncomplicated Qualified Code(s): F14.20 - Cocaine dependence, uncomplicated (2) Drug-induced mood disorder Current Visit: No Status: Acute (3) Opioid dependence Current Visit: No Status: Acute Qualifiers: Substance use status: uncomplicated Qualified Code(s): F11.20 - Opioid dependence, uncomplicated (4) COPD (chronic obstructive pulmonary disease) Current Visit: No Status: Chronic Qualifiers: COPD type: unspecified COPD Qualified Code(s): J44.9 - Chronic obstructive pulmonary disease, unspecified (5) Cocaine dependence with withdrawal Current Visit: No Status: Chronic (6) MDD (major depressive disorder), recurrent episode, moderate Current Visit: No Status: Chronic (7) Nicotine dependence Current Visit: No Status: Chronic Qualifiers: Nicotine product type: cigarettes Substance use status: uncomplicated Qualified Code(s): F17.210 - Nicotine dependence, cigarettes, uncomplicated (8) Opioid dependence with withdrawal Current Visit: No Status: Chronic (9) PTSD (post-traumatic stress disorder) Current Visit: No Status: Chronic Comment: History. (10) Paranoid personality disorder Current Visit: No Status: Chronic - Initial Treatment Plan Initial Treatment Plan: Zyprexa 10mg po qhs. Trazodone 50mg po qhs
[2017-03-10 09:48] LABS: MCH 28.8 pg (25.7-33.7); MCHC 33.6 g/dl (32.0-36.0); MEAN CELL VOLUME 85.8 fl (80-96); MEAN PLT VOLUME 9.4 fl (7.5-11.1); PLATELET COUNT 215 K/MM3 (134-434)
[2017-03-10] MEDS ORDERED: METHADONE HCL 10 MG TABLET (FOR DETOX USE ONLY) PO ONE (10:00)
[2017-03-10] MEDS: ABACAVIR SULFATE 300 MG TABLET PO SCH (10:00)
[2017-03-10 10:23] LABS: ALBUMIN 3.4 g/dl (3.4-5.0); BILIRUBIN,TOTAL 0.4 mg/dL (0.2-1.0); CALCIUM 8.7 mg/dL (8.5-10.1); COCKROFT - GAULT 12.665; CREATININE 3.3 mg/dL (0.55-1.02); TOT PROT 9.1 g/dl (6.4-8.2)
[2017-03-10] MEDS: SULFAMETHOXAZOLE/TRIMETHOPRIM 800MG/160MG D.S. TABLET PO SCH (10:35)
[2017-03-10] MEDS: PRENATAL VITAMINS W/ FOLIC ACID TABLET (FP) PO SCH (10:35)
[2017-03-10] MEDS: amLODIPine BESYLATE 10 MG TABLET (FP) PO SCH (10:35)
[2017-03-10] MEDS: BUDESONIDE/FORMETEROL FUMARATE 160/4.5 mcg INHALER IH SCH ×2 (11:24→22:54)
--- NOTE | 2017-03-10 11:27 | PN ---
BHS COWS - Scale Resting Pulse: 0= ID 80 or Below Sweatin= Chills/Flushing Restless Observation: 1= Difficult to Sit Still Pupil Size: 1= Pupils >than Normal Bone or Joint Aches: 1= Mild Discomfort Runny Nose/ Eye Tearin= Nasal Congestion GI Upset > 30mins: 1= Stomach Cramp Tremor Observation of Outstretched Hands: 2= Slight Tremor Visible Yawning Observation: 0= None Anxiety or Irritability: 1=Feels Anxious/Irritable Goose Flesh Skin: 0=Smooth Skin COWS Score: 9 BHS Progress Note (SOAP) Subjective: interrupted sleep, sweats, shakes, Objective: 03/10/17 11:27 Vital Signs Temperature 98.9 F 03/10/17 09:54 Pulse Rate 73 03/10/17 09:54 Respiratory Rate 18 03/10/17 09:54 Blood Pressure 138/97 03/10/17 09:54 O2 Sat by Pulse Oximetry (%) Laboratory Tests 03/09/17 03/10/17 03/10/17 17:01 06:00 06:00 WBC 7.0 D RBC 4.31 Hgb 12.4 Hct 37.0 MCV 85.8 MCHC 33.6 RDW 15.0 Plt Count 215 D MPV 9.4 Sodium 141 Potassium 4.7 Chloride 110 H Carbon Dioxide 24 Anion Gap 7 L BUN 29 H D Creatinine 3.3 H Creat Clearance w eGFR 14.51 Random Glucose 111 H Calcium 8.7 Total Bilirubin 0.4 AST 33 D ALT 60 D Alkaline Phosphatase 77 Total Protein 9.1 H Albumin 3.4 Urine Color Yellow Urine Appearance Clear Urine pH 6.0 Ur Specific [place] 1.020 Urine Protein 2+ H Urine Glucose (UA) Negative Urine Ketones Negative Urine Blood Negative Urine Nitrite Negative Urine Bilirubin Negative Urine Urobilinogen Negative Ur Leukocyte Esterase Negative Urine RBC 1 Urine WBC 4 Ur Epithelial Cells Rare Urine Bacteria Rare Urine Mucus Rare pt aox3 in nad, lying in bed drowsy 03/10/17 11:27 03/10/17 11:28 Assessment: 03/10/17 11:27 withdrawal sx's hiv+ renal failure Plan: cont. detox increase fluids walker for ambulation
--- NOTE | 2017-03-10 13:12 | EKG ---
Test Reason : Blood Pressure : / mmHG Vent. Rate : 078 BPM Atrial Rate : 078 BPM P-R Int : 134 ms QRS Dur : 072 ms QT Int : 404 ms P-R-T Axes : 075 054 063 degrees QTc Int : 460 ms NORMAL SINUS RHYTHM NORMAL ECG WHEN COMPARED WITH ECG OF 28-JAN-2017 16:42, NO SIGNIFICANT CHANGE WAS FOUND Confirmed by DIEGO DIAZ MD ([id number]) on 03/10/2017 1:12:39 PM Referred By: Segundo Tovar Confirmed By:DIEGO DIAZ MD
--- NOTE | 2017-03-10 21:52 | PN ---
[facility] Progress Note Note: fell after lunch observed patient arrange her belonging in her room, able to standing independently, walker located at opposite side of her bed patient reports right shoulder pain 5/10 from fall after lunch today, able to undress and dress self, right shoulder skin intact, none tender, no redness, no swell, no capitation patient is able to support herself in a pivot position with her right arm. fall precaution #2, x ray of the right shoulder strong recommend ambulate with walker, avoid leaving walker farther than arm reach range continue detox
[2017-03-10] MEDS: traZODone HCL 50 MG TABLET (FP) PO SCH (22:54)
[2017-03-10] MEDS: THIAMINE HCL 100 MG TABLET (FP) PO SCH (22:54)
[2017-03-10] MEDS: OLANZapine 10 MG TABLET PO SCH (22:55)
[2017-03-11] MEDS: FERROUS SO4 325 MG TABLET (FP) PO SCH ×2 (07:41→17:21)
[2017-03-11] MEDS: DARUNAVIR ETHANOLATE 600 MG TAB PO SCH ×2 (07:41→17:21)
[2017-03-11] MEDS: MEGESTROL ACETATE 400 MG/10 ML UNIT DOSE CUP PO SCH ×2 (07:43→17:21)
[2017-03-11] MEDS: RITONAVIR 100 MG TABLET PO SCH ×2 (08:03→17:20)
[2017-03-11] MEDS ORDERED: METHADONE HCL 5 MG TABLET (FOR DETOX USE ONLY) PO ONE (10:00)
[2017-03-11] MEDS: PRENATAL VITAMINS W/ FOLIC ACID TABLET (FP) PO SCH (10:46)
[2017-03-11] MEDS: BUDESONIDE/FORMETEROL FUMARATE 160/4.5 mcg INHALER IH SCH ×2 (10:46→22:41)
[2017-03-11] MEDS: ABACAVIR SULFATE 300 MG TABLET PO SCH (10:47)
[2017-03-11] MEDS: SULFAMETHOXAZOLE/TRIMETHOPRIM 800MG/160MG D.S. TABLET PO SCH (10:47)
[2017-03-11] MEDS: amLODIPine BESYLATE 10 MG TABLET (FP) PO SCH (10:47)
--- NOTE | 2017-03-11 11:37 | PN ---
BHS COWS - Scale Resting Pulse: 0= DC 80 or Below Sweatin=Flushed/Facial Moisture Restless Observation: 1= Difficult to Sit Still Pupil Size: 0= Normal to Room Light Bone or Joint Aches: 2= Severe Diffuse Aches Runny Nose/ Eye Tearin= Nasal Congestion GI Upset > 30mins: 0= None Tremor Observation of Outstretched Hands: 2= Slight Tremor Visible Yawning Observation: 1= 1-2x During Session Anxiety or Irritability: 2=Irritable/Anxious Goose Flesh Skin: 0=Smooth Skin COWS Score: 11 S Progress Note (SOAP) Subjective: agitation sweats irritable restless interrupted sleep Objective: 03/11/17 11:36 Vital Signs Temperature 98.1 F 03/11/17 10:00 Pulse Rate 72 03/11/17 10:00 Respiratory Rate 16 03/11/17 10:00 Blood Pressure 145/96 03/11/17 10:00 O2 Sat by Pulse Oximetry (%) Laboratory Tests 03/09/17 03/10/17 03/10/17 17:01 06:00 06:00 WBC 7.0 D RBC 4.31 Hgb 12.4 Hct 37.0 MCV 85.8 MCHC 33.6 RDW 15.0 Plt Count 215 D MPV 9.4 Sodium 141 Potassium 4.7 Chloride 110 H Carbon Dioxide 24 Anion Gap 7 L BUN 29 H D Creatinine 3.3 H Creat Clearance w eGFR 14.51 Random Glucose 111 H Calcium 8.7 Total Bilirubin 0.4 AST 33 D ALT 60 D Alkaline Phosphatase 77 Total Protein 9.1 H Albumin 3.4 Urine Color Yellow Urine Appearance Clear Urine pH 6.0 Ur Specific [place] 1.020 Urine Protein 2+ H Urine Glucose (UA) Negative Urine Ketones Negative Urine Blood Negative Urine Nitrite Negative Urine Bilirubin Negative Urine Urobilinogen Negative Ur Leukocyte Esterase Negative Urine RBC 1 Urine WBC 4 Ur Epithelial Cells Rare Urine Bacteria Rare Urine Mucus Rare RPR Titer 03/10/17 06:00 WBC RBC Hgb Hct MCV MCHC RDW Plt Count MPV Sodium Potassium Chloride Carbon Dioxide Anion Gap BUN Creatinine Creat Clearance w eGFR Random Glucose Calcium Total Bilirubin AST ALT Alkaline Phosphatase Total Protein Albumin Urine Color Urine Appearance Urine pH Ur Specific [place] Urine Protein Urine Glucose (UA) Urine Ketones Urine Blood Urine Nitrite Urine Bilirubin Urine Urobilinogen Ur Leukocyte Esterase Urine RBC Urine WBC Ur Epithelial Cells Urine Bacteria Urine Mucus RPR Titer Nonreactive awake/alert ambulating with walker safely no acute distress Assessment: 03/11/17 11:37 withdrawal sx Plan: continue detox increase fluids f/u pending x-ray report
[2017-03-11 12:09] LABS: CALCIUM 8.5 mg/dL (8.5-10.1); COCKROFT - GAULT 13.94
--- NOTE | 2017-03-11 13:45 | PN ---
[facility] Progress Note Note: Laboratory Tests 03/09/17 03/10/17 03/10/17 17:01 06:00 06:00 WBC 7.0 D RBC 4.31 Hgb 12.4 Hct 37.0 MCV 85.8 MCHC 33.6 RDW 15.0 Plt Count 215 D MPV 9.4 Sodium 141 Potassium 4.7 Chloride 110 H Carbon Dioxide 24 Anion Gap 7 L BUN 29 H D Creatinine 3.3 H Creat Clearance w eGFR 14.51 Random Glucose 111 H Calcium 8.7 Total Bilirubin 0.4 AST 33 D ALT 60 D Alkaline Phosphatase 77 Total Protein 9.1 H Albumin 3.4 Urine Color Yellow Urine Appearance Clear Urine pH 6.0 Ur Specific [place] 1.020 Urine Protein 2+ H Urine Glucose (UA) Negative Urine Ketones Negative Urine Blood Negative Urine Nitrite Negative Urine Bilirubin Negative Urine Urobilinogen Negative Ur Leukocyte Esterase Negative Urine RBC 1 Urine WBC 4 Ur Epithelial Cells Rare Urine Bacteria Rare Urine Mucus Rare RPR Titer 03/10/17 03/11/17 06:00 07:00 WBC RBC Hgb Hct MCV MCHC RDW Plt Count MPV Sodium 145 Potassium 4.8 Chloride 113 H Carbon Dioxide 24 Anion Gap 8 BUN 36 H D Creatinine 3.0 H Creat Clearance w eGFR Random Glucose 87 D Calcium 8.5 Total Bilirubin AST ALT Alkaline Phosphatase Total Protein Albumin Urine Color Urine Appearance Urine pH Ur Specific [place] Urine Protein Urine Glucose (UA) Urine Ketones Urine Blood Urine Nitrite Urine Bilirubin Urine Urobilinogen Ur Leukocyte Esterase Urine RBC Urine WBC Ur Epithelial Cells Urine Bacteria Urine Mucus RPR Titer Nonreactive BUN is 36 and creatinine is 3.0; bactrim in on d/c and all magnesium products are also d/c. pt is encouraged to meet with her PMD and/or renal consultation for further evaluation.
[2017-03-11] MEDS: ALBUTEROL SO4 6.7 GM HFA INHALER IH PRN (18:05)
[2017-03-11] MEDS: THIAMINE HCL 100 MG TABLET (FP) PO SCH (22:41)
[2017-03-11] MEDS: OLANZapine 10 MG TABLET PO SCH (22:41)
[2017-03-11] MEDS: ACETAMINOPHEN 325 MG TABLET (FP) PO PRN (22:42)
[2017-03-11] MEDS: traZODone HCL 50 MG TABLET (FP) PO SCH (22:52)
[2017-03-12] MEDS: diphenhydrAMINE HCL 50 MG CAPSULE PO PRN (01:49)
[2017-03-12] MEDS: RITONAVIR 100 MG TABLET PO SCH ×2 (07:14→22:29)
[2017-03-12] MEDS: FERROUS SO4 325 MG TABLET (FP) PO SCH ×2 (07:14→22:46)
[2017-03-12] MEDS: MEGESTROL ACETATE 400 MG/10 ML UNIT DOSE CUP PO SCH ×2 (07:14→22:29)
[2017-03-12] MEDS: DARUNAVIR ETHANOLATE 600 MG TAB PO SCH ×2 (07:14→22:29)
[2017-03-12] MEDS ORDERED: METHADONE HCL 5 MG TABLET (FOR DETOX USE ONLY) PO ONE (10:00)
[2017-03-12] MEDS: PRENATAL VITAMINS W/ FOLIC ACID TABLET (FP) PO SCH (10:47)
[2017-03-12] MEDS: amLODIPine BESYLATE 10 MG TABLET (FP) PO SCH (10:47)
[2017-03-12] MEDS: BUDESONIDE/FORMETEROL FUMARATE 160/4.5 mcg INHALER IH SCH ×2 (10:47→22:27)
[2017-03-12] MEDS: ABACAVIR SULFATE 300 MG TABLET PO SCH (10:48)
--- NOTE | 2017-03-12 13:35 | PN ---
BHS Progress Note (SOAP) Subjective: Sweating, Body Aches, H/A, Constipation, Interrupted Sleep, Vomiting, Interrupted Sleep. Objective: PT. A & O X 2 (DISORIENTED ABOUT DAY /DATE). PT. OBSERVED AMBULATING ON UNIT WITH WALKER. PT. DENIES CHEST PAIN. 03/12/17 13:35 03/12/17 13:42 Vital Signs Temperature 99.1 F 03/12/17 10:35 Pulse Rate 83 03/12/17 10:35 Respiratory Rate 18 03/12/17 10:35 Blood Pressure 126/73 03/12/17 10:35 O2 Sat by Pulse Oximetry (%) Laboratory Tests 03/09/17 03/10/17 03/10/17 17:01 06:00 06:00 WBC 7.0 D RBC 4.31 Hgb 12.4 Hct 37.0 MCV 85.8 MCHC 33.6 RDW 15.0 Plt Count 215 D MPV 9.4 Sodium 141 Potassium 4.7 Chloride 110 H Carbon Dioxide 24 Anion Gap 7 L BUN 29 H D Creatinine 3.3 H Creat Clearance w eGFR 14.51 Random Glucose 111 H Calcium 8.7 Total Bilirubin 0.4 AST 33 D ALT 60 D Alkaline Phosphatase 77 Total Protein 9.1 H Albumin 3.4 Urine Color Yellow Urine Appearance Clear Urine pH 6.0 Ur Specific [place] 1.020 Urine Protein 2+ H Urine Glucose (UA) Negative Urine Ketones Negative Urine Blood Negative Urine Nitrite Negative Urine Bilirubin Negative Urine Urobilinogen Negative Ur Leukocyte Esterase Negative Urine RBC 1 Urine WBC 4 Ur Epithelial Cells Rare Urine Bacteria Rare Urine Mucus Rare RPR Titer 03/10/17 03/11/17 06:00 07:00 WBC RBC Hgb Hct MCV MCHC RDW Plt Count MPV Sodium 145 Potassium 4.8 Chloride 113 H Carbon Dioxide 24 Anion Gap 8 BUN 36 H D Creatinine 3.0 H Creat Clearance w eGFR Random Glucose 87 D Calcium 8.5 Total Bilirubin AST ALT Alkaline Phosphatase Total Protein Albumin Urine Color Urine Appearance Urine pH Ur Specific [place] Urine Protein Urine Glucose (UA) Urine Ketones Urine Blood Urine Nitrite Urine Bilirubin Urine Urobilinogen Ur Leukocyte Esterase Urine RBC Urine WBC Ur Epithelial Cells Urine Bacteria Urine Mucus RPR Titer Nonreactive LABS NOTED. Assessment: 03/12/17 13:43 WITHDRAWAL SYMPTOMS. 03/12/17 13:44 Plan: CONTINUE DETOX. COLACE, 100 MG PO BID FOR CONSTIPATION.
[2017-03-12] MEDS: DOCUSATE SODIUM 100 MG CAPSULE (FP) PO SCH ×2 (14:00→22:28)
--- NOTE | 2017-03-12 14:01 | PN ---
[facility] Progress Note Note: Received report from Josseline Fernandez RN that pt. had just vomited X 1 with significant undigested food particles. Pt. received on unit in bed, appearing very lethargic and confused. Pt. having difficulty keeping eyes open. Pt. able to speak without difficulty. When asked if she had any chest pain, pt. pointed to throat area. When asked is she has any prior history of throat / esophageal condition or if any occurrence similar to current one has occurred in past, pt. said that something similar has happened in past, but was unable to give any more specific information when asked. Pt. Oriented to , but Disoriented to Day/Date and to Current Location. VS: BP: 134/97; P: 92; O2: 96%; T: 99.0; RR: 20. ECG done, Result noted. Report given to Dr. Mac MD at [facility] to give report. Pt. taken via ambulance to [facility] for further evaluation. Warren Sullivan NP
--- NOTE | 2017-03-12 20:06 | PN ---
[facility] Progress Note Note: Psychiatry Attending's note : Patient appears sedated (moderately). Ambulatory.Improved gait.Moves around. Ms Pedro is intrusive,argumentative. Resistive to re-redirections.Disorganized. Oriented to person and place. Plan : Discontinue trazodone and olanzapine. Close observation for safety.
[2017-03-12] MEDS: THIAMINE HCL 100 MG TABLET (FP) PO SCH (22:28)
[2017-03-13] MEDS: MEGESTROL ACETATE 400 MG/10 ML UNIT DOSE CUP PO SCH ×2 (07:18→17:37)
[2017-03-13] MEDS: DARUNAVIR ETHANOLATE 600 MG TAB PO SCH ×2 (07:48→17:37)
[2017-03-13] MEDS: RITONAVIR 100 MG TABLET PO SCH ×2 (07:48→17:37)
[2017-03-13] MEDS: FERROUS SO4 325 MG TABLET (FP) PO SCH ×2 (07:48→17:39)
[2017-03-13] MEDS ORDERED: METHADONE HCL 10 MG TABLET (FOR DETOX USE ONLY) PO ONE (10:00)
[2017-03-13] MEDS: amLODIPine BESYLATE 10 MG TABLET (FP) PO SCH (10:38)
[2017-03-13] MEDS: PRENATAL VITAMINS W/ FOLIC ACID TABLET (FP) PO SCH (10:38)
[2017-03-13] MEDS: BUDESONIDE/FORMETEROL FUMARATE 160/4.5 mcg INHALER IH SCH ×2 (10:38→22:32)
[2017-03-13] MEDS: DOCUSATE SODIUM 100 MG CAPSULE (FP) PO SCH ×2 (10:38→22:33)
[2017-03-13] MEDS: ABACAVIR SULFATE 300 MG TABLET PO SCH (10:39)
[2017-03-13] MEDS ORDERED: ONDANSETRON *ODT* 4 MG TABLET SL PRN (11:17)
--- NOTE | 2017-03-13 11:26 | PN ---
[facility] Progress Note (SOAP) Subjective: Sweating,poor appetite,restless Objective: 03/13/17 11:25 Vital Signs - 8 hr 03/13/17 03/13/17 03/13/17 03:30 07:55 11:17 Temperature 98.2 F 98.2 F Pulse Rate 84 86 Respiratory 18 16 18 Rate Blood Pressure 145/89 125/76 Laboratory Last Values WBC 7.0 K/mm3 (4.0-10.0) D 03/10/17 06:00 RBC 4.31 M/mm3 (3.60-5.2) 03/10/17 06:00 Hgb 12.4 GM/dL (10.7-15.3) 03/10/17 06:00 Hct 37.0 % (32.4-45.2) 03/10/17 06:00 MCV 85.8 fl (80-96) 03/10/17 06:00 MCHC 33.6 g/dl (32.0-36.0) 03/10/17 06:00 RDW 15.0 % (11.6-15.6) 03/10/17 06:00 Plt Count 215 K/MM3 (134-434) D 03/10/17 06:00 MPV 9.4 fl (7.5-11.1) 03/10/17 06:00 Sodium 145 mmol/L (136-145) 03/11/17 07:00 Potassium 4.8 mmol/L (3.5-5.1) 03/11/17 07:00 Chloride 113 mmol/L (98-107) H 03/11/17 07:00 Carbon Dioxide 24 mmol/L (21-32) 03/11/17 07:00 Anion Gap 8 (8-16) 03/11/17 07:00 BUN 36 mg/dL (7-18) H D 03/11/17 07:00 Creatinine 3.0 mg/dL (0.55-1.02) H 03/11/17 07:00 Creat Clearance w eGFR 14.51 (>60) 03/10/17 06:00 Random Glucose 87 mg/dL (74-106) D 03/11/17 07:00 Calcium 8.5 mg/dL (8.5-10.1) 03/11/17 07:00 Total Bilirubin 0.4 mg/dL (0.2-1.0) 03/10/17 06:00 AST 33 U/L (15-37) D 03/10/17 06:00 ALT 60 U/L (12-78) D 03/10/17 06:00 Alkaline Phosphatase 77 U/L (45-117) 03/10/17 06:00 Total Protein 9.1 g/dl (6.4-8.2) H 03/10/17 06:00 Albumin 3.4 g/dl (3.4-5.0) 03/10/17 06:00 Urine Color Yellow 03/09/17 17:01 Urine Appearance Clear 03/09/17 17:01 Urine pH 6.0 (5.0-8.0) 03/09/17 17:01 Ur Specific [place] 1.020 (1.005-1.025) 03/09/17 17:01 Urine Protein 2+ (NEGATIVE) H 03/09/17 17:01 Urine Glucose (UA) Negative (NEGATIVE) 03/09/17 17: Urine Ketones Negative (NEGATIVE) 03/09/17 17:01 Urine Blood Negative (NEGATIVE) 03/09/17 17:01 Urine Nitrite Negative (NEGATIVE) 03/09/17 17:01 Urine Bilirubin Negative (NEGATIVE) 03/09/17 17:01 Urine Urobilinogen Negative E.U./dl (0.2-1.0) 03/09/17 17:01 Ur Leukocyte Esterase Negative (NEGATIVE) 03/09/17 17:01 Urine RBC 1 /hpf (0-3) 03/09/17 17:01 Urine WBC 4 /hpf (3-5) 03/09/17 17:01 Ur Epithelial Cells Rare /hpf (FEW) 03/09/17 17:01 Urine Bacteria Rare /hpf (NONE SEEN) 03/09/17 17:01 Urine Mucus Rare 03/09/17 17:01 RPR Titer Nonreactive (NONREACTIVE) 03/10/17 06:00 labs noted Assessment: 03/13/17 11:26 Withdrawal sx. Plan: Continue detox
[2017-03-13] MEDS ORDERED: FLUCONAZOLE 100 MG TABLET (UD) PO ONE (13:00)
[2017-03-13] MEDS: CLOTRIMAZOLE 10 MG TROCHE (FP) PO SCH ×3 (15:09→22:33)
[2017-03-13] MEDS: THIAMINE HCL 100 MG TABLET (FP) PO SCH (22:32)
[2017-03-13] MEDS: ALBUTEROL SO4 6.7 GM HFA INHALER IH PRN (22:32)
[2017-03-13] MEDS: diphenhydrAMINE HCL 50 MG CAPSULE PO PRN (22:33)
[2017-03-14] MEDS: diphenhydrAMINE HCL 50 MG CAPSULE PO PRN ×2 (00:20→22:42)
[2017-03-14] MEDS: CLOTRIMAZOLE 10 MG TROCHE (FP) PO SCH ×5 (05:50→22:40)
[2017-03-14] MEDS ORDERED: METHADONE HCL 5 MG TABLET (FOR DETOX USE ONLY) PO ONE (06:00)
[2017-03-14] MEDS: DARUNAVIR ETHANOLATE 600 MG TAB PO SCH ×2 (08:04→17:47)
[2017-03-14] MEDS: FERROUS SO4 325 MG TABLET (FP) PO SCH ×2 (08:04→17:48)
[2017-03-14] MEDS: RITONAVIR 100 MG TABLET PO SCH ×2 (08:04→17:48)
[2017-03-14] MEDS: MEGESTROL ACETATE 400 MG/10 ML UNIT DOSE CUP PO SCH ×2 (08:04→17:47)
[2017-03-14] MEDS: DOCUSATE SODIUM 100 MG CAPSULE (FP) PO SCH ×2 (09:29→22:40)
[2017-03-14] MEDS: PRENATAL VITAMINS W/ FOLIC ACID TABLET (FP) PO SCH (09:29)
[2017-03-14] MEDS: ABACAVIR SULFATE 300 MG TABLET PO SCH (09:29)
[2017-03-14] MEDS: amLODIPine BESYLATE 10 MG TABLET (FP) PO SCH (09:29)
[2017-03-14] MEDS: BUDESONIDE/FORMETEROL FUMARATE 160/4.5 mcg INHALER IH SCH ×2 (09:30→22:40)
[2017-03-14] MEDS: FLUCONAZOLE 100 MG TABLET (UD) PO SCH (09:38)
--- NOTE | 2017-03-14 11:26 | EKG ---
Test Reason : Blood Pressure : / mmHG Vent. Rate : 080 BPM Atrial Rate : 080 BPM P-R Int : 130 ms QRS Dur : 076 ms QT Int : 400 ms P-R-T Axes : 052 012 053 degrees QTc Int : 461 ms NORMAL SINUS RHYTHM NORMAL ECG WHEN COMPARED WITH ECG OF 09-MAR-2017 14:47, NO SIGNIFICANT CHANGE WAS FOUND Confirmed by ULISES ORTEGA MD ([id number]) on 03/14/2017 11:26:23 AM Referred By: Segundo Tovar Confirmed By:ULISES ORTEGA MD
--- NOTE | 2017-03-14 17:17 | PN ---
[facility] Progress Note (SOAP) Subjective: Nausea, Stomach Cramping, Interrupted Sleep, Lower Back Ache, Sweating. Objective: PT. A & O X 2 (DISORIENTED ABOUT DAY/ DATE). PT. OBSERVED AMBULATING WITH ASSISTANCE OF A WALKER. 03/14/17 17:13 Vital Signs Temperature 96.4 F L 03/14/17 15:50 Pulse Rate 70 03/14/17 15:50 Respiratory Rate 16 03/14/17 15:50 Blood Pressure 120/70 03/14/17 15:50 O2 Sat by Pulse Oximetry (%) Laboratory Tests 03/09/17 03/10/17 03/10/17 17:01 06:00 06:00 WBC 7.0 D RBC 4.31 Hgb 12.4 Hct 37.0 MCV 85.8 MCHC 33.6 RDW 15.0 Plt Count 215 D MPV 9.4 Sodium 141 Potassium 4.7 Chloride 110 H Carbon Dioxide 24 Anion Gap 7 L BUN 29 H D Creatinine 3.3 H Creat Clearance w eGFR 14.51 Random Glucose 111 H Calcium 8.7 Total Bilirubin 0.4 AST 33 D ALT 60 D Alkaline Phosphatase 77 Total Protein 9.1 H Albumin 3.4 Urine Color Yellow Urine Appearance Clear Urine pH 6.0 Ur Specific [place] 1.020 Urine Protein 2+ H Urine Glucose (UA) Negative Urine Ketones Negative Urine Blood Negative Urine Nitrite Negative Urine Bilirubin Negative Urine Urobilinogen Negative Ur Leukocyte Esterase Negative Urine RBC 1 Urine WBC 4 Ur Epithelial Cells Rare Urine Bacteria Rare Urine Mucus Rare RPR Titer 03/10/17 03/11/17 06:00 07:00 WBC RBC Hgb Hct MCV MCHC RDW Plt Count MPV Sodium 145 Potassium 4.8 Chloride 113 H Carbon Dioxide 24 Anion Gap 8 BUN 36 H D Creatinine 3.0 H Creat Clearance w eGFR Random Glucose 87 D Calcium 8.5 Total Bilirubin AST ALT Alkaline Phosphatase Total Protein Albumin Urine Color Urine Appearance Urine pH Ur Specific [place] Urine Protein Urine Glucose (UA) Urine Ketones Urine Blood Urine Nitrite Urine Bilirubin Urine Urobilinogen Ur Leukocyte Esterase Urine RBC Urine WBC Ur Epithelial Cells Urine Bacteria Urine Mucus RPR Titer Nonreactive LABS NOTED. Assessment: 03/14/17 17:17 WITHDRAWAL SYMPTOMS. Plan: CONTINUE DETOX. PATIENT REQUESTING REHAB ADMISSION. HOWEVER, REHAB ADMISSION NOT FEASIBLE TODAY DUE TO HOLIDAY. DUE TO MEDICAL COMORBIDITIES, RESIDUAL DETOX SYMPTOMS, AND DIFFICULTY IN AMBULATION (WALKER USED FOR ASSISTANCE), PATIENT TO REMAIN ON UNIT UNTIL TOMORROW AM, AT WHICH TIME REHAB ADMISSION WILL BE CONSIDERED. ADVISED PATIENT TO FOLLOW-UP WITH [facility] / REHAB MEDICAL PROVIDER AFTER DISCHARGE FROM DETOX FOR GENERAL MEDICAL ASSESSMENT AND FOR ABNORMAL ADMISSION RENAL VALUES.
[2017-03-14] MEDS: THIAMINE HCL 100 MG TABLET (FP) PO SCH (22:40)
[2017-03-15] MEDS: CLOTRIMAZOLE 10 MG TROCHE (FP) PO SCH ×2 (05:53→10:41)
[2017-03-15] MEDS: DARUNAVIR ETHANOLATE 600 MG TAB PO SCH (07:56)
[2017-03-15] MEDS: FERROUS SO4 325 MG TABLET (FP) PO SCH (07:56)
[2017-03-15] MEDS: RITONAVIR 100 MG TABLET PO SCH (07:56)
[2017-03-15] MEDS: MEGESTROL ACETATE 400 MG/10 ML UNIT DOSE CUP PO SCH (07:56)
--- NOTE | 2017-03-15 08:35 | DS ---
[facility] Detox Discharge Summary Admission Date: 03/09/17 Discharge Date: 03/15/17 - History Present History: Cannabis Dependence, Cocaine Dependence, Opioid Dependence - Physical Exam Results Vital Signs: Vital Signs Temperature 98.1 F 03/15/17 06:00 Pulse Rate 74 03/15/17 06:00 Respiratory Rate 16 03/15/17 06:00 Blood Pressure 120/75 03/15/17 06:00 O2 Sat by Pulse Oximetry (%) - Treatment Hospital Course: Detox Protocol Followed, Detoxed Safely, Responded well, Discharged Condition Good, Rehab Referral Accepted - Medication Discharge Medications: Ambulatory Orders Abacavir Sulfate [Abacavir] 300 mg PO DAILY 01/28/17 Darunavir Ethanolate [Prezista -] 600 mg PO BID 01/28/17 Olanzapine [Zyprexa -] 10 mg PO HS 01/28/17 Ritonavir [Norvir -] 100 mg PO BID 01/28/17 Trazodone HCl [Desyrel -] 50 mg PO HS 01/28/17 Albuterol Sulfate Inhaler - [Ventolin HFA Inhaler -] 2 puff IH Q4H PRN #1 inhaler 02/02/17 Amlodipine Besylate [Norvasc -] 10 mg PO DAILY #30 tablet 02/02/17 Budesonide/Formeterol Fumarate [SYMBICORT 160/4.5mcg -] 2 puff IH BID #1 inhaler 02/02/17 Ferrous Sulfate [Feosol] 325 mg PO BIDWM #60 cap 02/02/17 Gabapentin [Neurontin -] 100 mg PO HS #30 cap 02/02/17 Sulfamethoxazole/Trimethoprim [Bactrim Ds -] 1 tab PO DAILY #30 tablet 02/02/17 Megestrol Acetate 400 mg PO BID 03/09/17 Olanzapine [ZyPREXA -] 10 mg PO HS #30 tablet 03/10/17 Trazodone HCl [Desyrel -] 50 mg PO HS #30 tablet 03/10/17 - Diagnosis (1) Walker as ambulation aid Current Visit: Yes Status: Chronic (2) Cocaine dependence Current Visit: Yes Status: Chronic Qualifiers: Substance use status: uncomplicated Qualified Code(s): F14.20 - Cocaine dependence, uncomplicated (3) Drug-induced mood disorder Current Visit: No Status: Acute (4) Opioid dependence Current Visit: Yes Status: Chronic Qualifiers: Substance use status: uncomplicated Qualified Code(s): F11.20 - Opioid dependence, uncomplicated (5) Weight loss Current Visit: No Status: Acute (6) Anemia Current Visit: No Status: Chronic (7) Asthma Current Visit: Yes Status: Chronic Qualifiers: Asthma severity: mild intermittent Asthma complication type: uncomplicated Qualified Code(s): J45.20 - Mild intermittent asthma, uncomplicated (8) COPD (chronic obstructive pulmonary disease) Current Visit: No Status: Chronic Qualifiers: COPD type: unspecified COPD Qualified Code(s): J44.9 - Chronic obstructive pulmonary disease, unspecified (9) Cannabis abuse Current Visit: Yes Status: Chronic (10) Cocaine dependence with withdrawal Current Visit: No Status: Chronic (11) GERD (gastroesophageal reflux disease) Current Visit: Yes Status: Chronic Qualifiers: Esophagitis presence: without esophagitis Qualified Code(s): K21.9 - Gastro-esophageal reflux disease without esophagitis (12) HIV (human immunodeficiency virus infection) Current Visit: No Status: Chronic (13) HTN (hypertension) Current Visit: No Status: Chronic Qualifiers: Hypertension type: essential hypertension Qualified Code(s): I10 - Essential (primary) hypertension (14) Hx of AIDS Current Visit: No Status: Chronic (15) MDD (major depressive disorder), recurrent episode, moderate Current Visit: No Status: Chronic (16) Nicotine dependence Current Visit: No Status: Chronic Qualifiers: Nicotine product type: cigarettes Substance use status: uncomplicated Qualified Code(s): F17.210 - Nicotine dependence, cigarettes, uncomplicated (17) Opioid dependence with withdrawal Current Visit: No Status: Chronic (18) PTSD (post-traumatic stress disorder) Current Visit: No Status: Chronic (19) Paranoid personality disorder Current Visit: No Status: Chronic
[2017-03-15 09:55] VITALS: BP 125/85; PULSE 83; TEMP 98.4
[2017-03-15] MEDS: DOCUSATE SODIUM 100 MG CAPSULE (FP) PO SCH (10:41)
[2017-03-15] MEDS: FLUCONAZOLE 100 MG TABLET (UD) PO SCH (10:41)
[2017-03-15] MEDS: ABACAVIR SULFATE 300 MG TABLET PO SCH (10:42)
[2017-03-15] MEDS: PRENATAL VITAMINS W/ FOLIC ACID TABLET (FP) PO SCH (10:42)
[2017-03-15] MEDS: BUDESONIDE/FORMETEROL FUMARATE 160/4.5 mcg INHALER IH SCH (10:42)
[2017-03-15] MEDS: amLODIPine BESYLATE 10 MG TABLET (FP) PO SCH (10:42)
== END 2017-03-15 10:15 | disposition home or self-care (01) | DRG 773 ==
LOC: YASAS 09:26 → Y6N 13:29
PROVIDERS: ADMIT Internal Medicine Addiction Medicine; ATTEND Internal Medicine Addiction Medicine
PROC: HZ2ZZZZ Detoxification Services for Substance Abuse Treatment (ICD-10-PCS; principal; 2017-03-09)
DX: F11.23 Opioid dependence with withdrawal (principal); F14.20 Cocaine dependence, uncomplicated; F12.10 Cannabis abuse, uncomplicated; F17.210 Nicotine dependence, cigarettes, uncomplicated; F19.24 Other psychoactive substance dependence with psychoactive substance-induced mood disorder; F43.10 Post-traumatic stress disorder, unspecified; F60.0 Paranoid personality disorder; F33.1 Major depressive disorder, recurrent, moderate; I10 Essential (primary) hypertension; B20 Human immunodeficiency virus [HIV] disease; J45.20 Mild intermittent asthma, uncomplicated; J44.9 Chronic obstructive pulmonary disease, unspecified; D64.9 Anemia, unspecified; K21.9 Gastro-esophageal reflux disease without esophagitis; R53.83 Other fatigue; R41.0 Disorientation, unspecified; R07.0 Pain in throat; N19 Unspecified kidney failure; M87.9 Osteonecrosis, unspecified; R26.2 Difficulty in walking, not elsewhere classified; Z99.89 Dependence on other enabling machines and devices; Z86.69 Personal history of other diseases of the nervous system and sense organs; Z87.898 Personal history of other specified conditions; Z91.5 Personal history of self-harm; M25.511 Pain in right shoulder; W18.39XA Other fall on same level, initial encounter; Y93.01 Activity, walking, marching and hiking; Y92.230 Patient room in hospital as the place of occurrence of the external cause
CPT/HCPCS: 36415; 73030-TC-RT; 73523-TC; 80048; 80053; 81003; 81015; 85027; 86593; 93005; 93010

== ENCOUNTER 2017-03-12 14:21 | Emergency (ER) | payer OTHER ==
[2017-03-12 14:36] VITALS: BP 126/91; PULSE 77; TEMP 98.8; BMI 23.2
--- NOTE | 2017-03-12 14:36 | PDOC ---
History of Present Illness - General History Source: Old Records Exam Limitations: No Limitations - History of Present Illness Initial Comments: 03/12/17 15:11 The patient is a 56-year-old female, with a significant past medical history of anemia, asthma, COPD, HTN, seizures and substance abuse (heroine, cocaine), who presents to the ED via EMS s/p choking. Pt was able to say that she was eating and starting choking but was falling in and out of the conversation because of her methadone medication. <Jennifer Kahn - Last Filed: 03/12/17 15:42> <Alvina Guerra - Last Filed: 03/13/17 10:17> - General Chief Complaint: Choking Sensation Stated Complaint: PAIN IN THROAT Time Seen by Provider: 03/12/17 14:30 Past History <Jennifer Kahn - Last Filed: 03/12/17 15:42> - Past Medical History Anemia: Yes (WAS ON IRON PILL BUT RAN OUT) Asthma: Yes Cancer: No Cardiac Disorders: No CVA: No COPD: Yes CHF: No Dementia: No Diabetes: No GI Disorders: No Disorders: No HTN: Yes (Pt is on meds.) Hypercholesterolemia: No Kidney Stones: No Liver Disease: No Suicide Attempt (Hx): Yes (cutter at age 36) Seizures: Yes (DRUG RELATED SEIZURES LAST 1 MONTH AGO) Thyroid Disease: No - Surgical History Abdominal Surgery: No Appendectomy: No Cardiac Surgery: No Cholecystectomy: No Lung Surgery: No Neurologic Surgery: No Orthopedic Surgery: Yes (RIGHT HAND--NERVE REPAIR IN 1970s and tendon) - Reproductive History PID: No - Psycho/Social/Smoking Cessation Hx Anxiety: No Suicidal Ideation: No Smoking History: Current every day smoker Have you smoked in the past 12 months: Yes Number of Cigarettes Smoked Daily: 3 Information on smoking cessation initiated: Yes 'Breaking Loose' booklet given: 03/12/17 Hx Alcohol Use: No Drug/Substance Use Hx: Yes (mira) Substance Use Type: Cocaine, Heroin Hx Substance Use Treatment: Yes (last detox 01/28/17 to 02/02/17) <Alvina Guerra - Last Filed: 03/13/17 10:17> - Past Medical History Allergies/Adverse Reactions: Allergies Allergy/AdvReac Type Severity Reaction Status Date / Time aspirin Allergy Severe Swelling Verified 03/09/17 11:47 Home Medications: Ambulatory Orders Abacavir Sulfate [Abacavir] 300 mg PO DAILY 01/28/17 Darunavir Ethanolate [Prezista -] 600 mg PO BID 01/28/17 Olanzapine [Zyprexa -] 10 mg PO HS 01/28/17 Ritonavir [Norvir -] 100 mg PO BID 01/28/17 Trazodone HCl [Desyrel -] 50 mg PO HS 01/28/17 Albuterol Sulfate Inhaler - [Ventolin HFA Inhaler -] 2 puff IH Q4H PRN #1 inhaler 02/02/17 Amlodipine Besylate [Norvasc -] 10 mg PO DAILY #30 tablet 02/02/17 Budesonide/Formeterol Fumarate [SYMBICORT 160/4.5mcg -] 2 puff IH BID #1 inhaler 02/02/17 Ferrous Sulfate [Feosol] 325 mg PO BIDWM #60 cap 02/02/17 Gabapentin [Neurontin -] 100 mg PO HS #30 cap 02/02/17 Sulfamethoxazole/Trimethoprim [Bactrim Ds -] 1 tab PO DAILY #30 tablet 02/02/17 Megestrol Acetate 400 mg PO BID 03/09/17 Olanzapine [ZyPREXA -] 10 mg PO HS #30 tablet 03/10/17 Trazodone HCl [Desyrel -] 50 mg PO HS #30 tablet 03/10/17 Review of Systems - Review of Systems Able to Perform ROS?: Yes Comments:: 03/12/17 15:12 GENERAL/CONSTITUTIONAL: No fever or chills. No weakness. HEAD, EYES, EARS, NOSE AND THROAT: No change in vision. No ear pain or discharge. No sore throat. (+)choking CARDIOVASCULAR: No chest pain or shortness of breath. RESPIRATORY: No cough, wheezing, or hemoptysis. GASTROINTESTINAL: No nausea, vomiting, diarrhea or constipation. GENITOURINARY: No dysuria, frequency, or change in urination. MUSCULOSKELETAL: No joint or muscle swelling or pain. No neck or back pain. SKIN: No rash NEUROLOGIC: No headache, vertigo, loss of consciousness, or change in strength/ sensation. ENDOCRINE: No increased thirst. No abnormal weight change. HEMATOLOGIC/LYMPHATIC: No anemia, easy bleeding, or history of blood clots. <Femi,Jennifer - Last Filed: 03/12/17 15:42> *Physical Exam - Vital Signs Last Vital Signs Temp Pulse Resp BP Pulse Ox 98.8 F 77 20 126/91 99 03/12/17 14:27 03/12/17 14:27 03/12/17 14:27 03/12/17 14:27 03/12/17 14:27 <Jennifer Kahn - Last Filed: 03/12/17 15:42> - Vital Signs Last Vital Signs Temp Pulse Resp BP Pulse Ox 98.8 F 77 20 126/91 99 03/12/17 14:27 03/12/17 14:27 03/12/17 14:27 03/12/17 14:27 03/12/17 14:27 - Physical Exam Comments: GENERAL: Awake, answering some questions, but intermittently falls asleep during interview. HEAD: No signs of trauma EYES: Pupils pinpoint but reactive. EOMI, sclera anicteric, conjunctiva clear ENT: Auricles normal inspection, hearing grossly normal, nares patent, oropharynx clear without exudates. Moist mucosa NECK: Normal ROM, supple, no lymphadenopathy, JVD, or masses LUNGS: Breath sounds equal, clear to auscultation bilaterally. No wheezes, and no crackles HEART: Regular rate and rhythm, normal S1 and S2, no murmurs, rubs or gallops ABDOMEN: Soft, nontender, normoactive bowel sounds. No guarding, no rebound. No masses EXTREMITIES: Normal range of motion, no edema. No clubbing or cyanosis. No cords, erythema, or tenderness NEUROLOGICAL: Cranial nerves II through XII grossly intact. Normal speech, normal gait. Motor and sensation intact. SKIN: Warm, Dry, normal turgor, no rashes or lesions noted. <Alvina Guerra - Last Filed: 03/13/17 10:17> ED Treatment Course - LABORATORY CBC & Chemistry Diagram: 03/12/17 15:12 03/12/17 15:12 - RADIOLOGY Radiology Studies Ordered: 03/12/17 15:43 Chest X-Ray was reviewed by Dr. Guerra and over-read by Radiology. Impression: Correlation recommended. A follow-up study with deep inspiration is suggested as was obtained on 05/01/2015. <Jennifer Kahn - Last Filed: 03/12/17 15:42> - LABORATORY CBC & Chemistry Diagram: 03/12/17 15:12 03/12/17 15:12 <Alvina Guerra - Last Filed: 03/13/17 10:17> Medical Decision Making - Medical Decision Making There are no signs of aspiration at this time, and no signs of impacted food bolus. Patient was able to eat a tray of food in the ED. However, she appears overmedicated. She has pinpoint pupils and intermittently falls asleep while speaking. Stable for DC back to [facility]. <Alvina Guerra - Last Filed: 03/13/17 10:17> *DC/Admit/Observation/Transfer - Attestations Scribe Attestion: 03/12/17 15:13 Documentation prepared by Jennifer Kahn, acting as medical laboratory technical officer for Alvina Guerra MD. <Jennifer Kahn - Last Filed: 03/12/17 15:42> - Discharge Dispostion Admit: No <Alvina Guerra - Last Filed: 03/13/17 10:17> Diagnosis at time of Disposition: Opioid dependence - Discharge Dispostion Disposition: I.P. ALCOHOL/SUBS ABUSE REHAB Condition at time of disposition: Stable - Patient Instructions Printed Discharge Instructions: DI for Opioid Addiction
[2017-03-12 15:35] LABS: BASOPHIL 0.9 % (0-2.0); MCH 28.6 pg (25.7-33.7); MCHC 33.5 g/dl (32.0-36.0); MEAN CELL VOLUME 85.3 fl (80-96); NEUTROPHILS 57.5 % (42.8-82.8); PLATELET COUNT 220 K/MM3 (134-434); RDW 16.1 % (11.6-15.6); WHITE BLOOD COUNT 7.6 K/mm3 (4.0-10.0)
[2017-03-12 15:59] LABS: BILIRUBIN,TOTAL 0.2 mg/dL (0.2-1.0); CALCIUM 8.8 mg/dL (8.5-10.1); COCKROFT - GAULT 15.3935; CREATININE 3.4 mg/dL (0.55-1.02); TOT PROT 8.1 g/dl (6.4-8.2)
== END 2017-03-12 17:13 | disposition other institution (70) ==
LOC: JER 14:21
DX: F11.20 Opioid dependence, uncomplicated (principal); I10 Essential (primary) hypertension; G40.509 Epileptic seizures related to external causes, not intractable, without status epilepticus; J45.909 Unspecified asthma, uncomplicated; J44.9 Chronic obstructive pulmonary disease, unspecified; F14.10 Cocaine abuse, uncomplicated; F17.210 Nicotine dependence, cigarettes, uncomplicated
CPT/HCPCS: 36415; 71010-TC; 80053; 83605; 85025; 99284-25

== ENCOUNTER 2017-03-17 09:36 | Inpatient (IN) | payer OTHER ==
[2017-03-17 10:44] VITALS: BMI 19.3
[2017-03-17] MEDS ORDERED: LOPERAMIDE HCL 2 MG CAPSULE PO PRN (12:33)
[2017-03-17] MEDS ORDERED: MAGNESIUM CITRATE 300 ML BOTTLE PO PRN (12:33)
[2017-03-17] MEDS ORDERED: ACETAMINOPHEN 325 MG TABLET (FP) PO PRN (12:33)
[2017-03-17] MEDS ORDERED: MENTHOL/PHENOL 1 EACH UD MM PRN (12:33)
[2017-03-17] MEDS ORDERED: NICOTINE POLACRILEX 2 MG GUM BUC PRN (12:33)
[2017-03-17] MEDS ORDERED: MAGNESIUM HYDROX 2400MG/30ML ORAL SUSPENSION 30 ML CUP PO PRN (12:33)
[2017-03-17] MEDS ORDERED: P-EPHED 60MG/TRIPROLIDI 2.5MG TABLET PO PRN (12:33)
[2017-03-17] MEDS ORDERED: MAG HYDROX/AL HYDROX/SIMETH 30 ML UNIT-DOSE CUP PO PRN (12:33)
[2017-03-17] MEDS ORDERED: guaiFENesin/D-METHORPHAN HB 10 ML UNIT-DOSE CUPS PO PRN (12:33)
--- NOTE | 2017-03-17 12:44 | HP ---
[facility] Rehab Assess/Revision - Admission History Admitted to Rehab from: [facility] (went home first on 03/15/17) Date of Admission to Rehab: 03/17/17 - Vital signs Vital Signs: Vital Signs Period Temp Pulse Resp BP Sys/[place] Pulse Ox Last 24 Hr 97.1 F 121 20 166/101 - Findings Detox History & Physical reviewed: Yes Concur with findings: Yes
[2017-03-17] MEDS ORDERED: DARUNAVIR ETHANOLATE 600 MG TAB PO SCH (12:45)
[2017-03-17] MEDS ORDERED: RITONAVIR 100 MG TABLET PO SCH (12:45)
[2017-03-17] MEDS ORDERED: SULFAMETHOXAZOLE/TRIMETHOPRIM 800MG/160MG D.S. TABLET PO SCH (12:45)
[2017-03-17] MEDS: amLODIPine BESYLATE 10 MG TABLET (FP) PO SCH (13:26)
[2017-03-17] MEDS: ABACAVIR SULFATE 300 MG TABLET PO SCH (13:27)
[2017-03-17] MEDS: MEGESTROL ACETATE 400 MG/10 ML UNIT DOSE CUP PO SCH ×2 (13:27→21:14)
[2017-03-17] MEDS: BUDESONIDE/FORMETEROL FUMARATE 160/4.5 mcg INHALER IH SCH ×2 (13:29→21:58)
[2017-03-17] MEDS: lamiVUDine 150 MG TABLET PO SCH (15:55)
[2017-03-17] MEDS: FERROUS SO4 325 MG TABLET (FP) PO SCH (17:25)
[2017-03-17 17:49] LABS: URINE APPEARANCE CLEAR; URINE BILIRUBIN NEGATIVE (NEGATIVE); URINE BLOOD NEGATIVE (NEGATIVE); URINE COLOR LTYELLOW; URINE GLUCOSE (UA) NEGATIVE (NEGATIVE); URINE KETONE NEGATIVE (NEGATIVE); URINE NITRITE NEGATIVE (NEGATIVE); URINE UROBILINOGEN NEGATIVE E.U./dl (0.2-1.0)
[2017-03-17 17:52] LABS: URINE LEUK ESTERASE TRACE (NEGATIVE); URINE PROTEIN 2+ (NEGATIVE)
[2017-03-17 18:28] LABS: URINE BACTERIA RARE /hpf (NONE SEEN); URINE MUCUS RARE; URINE RBC 1 /hpf (0-3); URINE WBC 4 /hpf (3-5)
[2017-03-17] MEDS: THIAMINE HCL 100 MG TABLET (FP) PO SCH (21:14)
[2017-03-17] MEDS: diphenhydrAMINE HCL 50 MG CAPSULE PO PRN (21:14)
[2017-03-17] MEDS ORDERED: DARUNAVIR ETHANOLATE 600 MG TAB PO ONE (22:00)
[2017-03-17] MEDS ORDERED: RITONAVIR 100 MG TABLET PO ONE (22:00)
[2017-03-18] MEDS ORDERED: PT OWN MED DRAWER 7, Y5N ONE ×6 (06:09→21:12)
[2017-03-18] MEDS: ALBUTEROL SO4 6.7 GM HFA INHALER IH PRN ×2 (06:10→14:43)
[2017-03-18] MEDS: FERROUS SO4 325 MG TABLET (FP) PO SCH ×2 (07:13→17:36)
[2017-03-18] MEDS: RITONAVIR 100 MG TABLET PO SCH ×2 (07:13→17:37)
[2017-03-18] MEDS: DARUNAVIR ETHANOLATE 600 MG TAB PO SCH ×2 (07:13→17:36)
--- NOTE | 2017-03-18 09:57 | HP ---
Psychiatrist Admission - Data Date of interview: 03/18/17 Admission source: [address] [place] [address] Identifying data: This is the second admission to [address] [place] [address] for this 56 years AA mother of 6 grown children, resides with sister,supported by [facility] Medical History: HIV+,.AIDS,COPD,HTN,BA,Anemia. Psychiatric History: Patient started to see a psychiatrist since 21 yo after admission to [facility] due to severe depression.Patient was dx with Depression,placed on psychotropics.She reports 2 more psychiatric admissions, most recent was about 4-5 years ago to [facility] to suicidal attemptes (cut her wrist).She stopped to see a psychiatrist about 3 years ago.She restarted on Zyprexa 10 mg po hs while in detox last week,which has been discontinued due to drowsiness.Patient is willing to restart 5 mg po hs. Vital Signs: Vital Signs - 24 hr 03/17/17 03/17/17 03/18/17 10:42 13:45 00:30 Temperature 97.1 F L 98.7 F Pulse Rate 121 H 124 H Respiratory 20 20 18 Rate Blood Pressure 166/101 155/102 03/18/17 03/18/17 03/18/17 03:30 06:52 09:40 Temperature 98.9 F Pulse Rate 88 97 H Respiratory 18 18 Rate Blood Pressure 130/88 128/86 Allergies/Adverse Reactions: Allergies Allergy/AdvReac Type Severity Reaction Status Date / Time aspirin Allergy Severe Swelling Verified 03/17/17 10:44 Date of last physical exam: 03/17/17 Concur with the findings of this exam: Yes - Substance Abuse/Tx History Hx Alcohol Use: No Hx Substance Use: Yes (cocaine since 24 yo,heroin since 30 yo) Substance Use Type: Cocaine, Heroin Hx Substance Use Treatment: Yes (left AMA this program in 2014 and relapsed) - Admission Criteria Previous failed treatment: Yes Poor recovery environment: Yes Comorbidities: Yes Lacks judgement: Yes Psychiatric Findings - Problem List ([place] 1, 2,3) (1) Drug-induced mood disorder Current Visit: Yes Status: Chronic (2) Anemia Current Visit: Yes Status: Chronic (3) Asthma Current Visit: Yes Status: Chronic Qualifiers: Asthma severity: mild intermittent Asthma complication type: uncomplicated Qualified Code(s): J45.20 - Mild intermittent asthma, uncomplicated (4) COPD (chronic obstructive pulmonary disease) Current Visit: Yes Status: Chronic Qualifiers: COPD type: unspecified COPD Qualified Code(s): J44.9 - Chronic obstructive pulmonary disease, unspecified (5) Cannabis abuse Current Visit: Yes Status: Chronic (6) Cocaine dependence Current Visit: Yes Status: Chronic Qualifiers: Substance use status: uncomplicated Qualified Code(s): F14.20 - Cocaine dependence, uncomplicated (7) Opioid dependence Current Visit: Yes Status: Chronic Qualifiers: Substance use status: uncomplicated Qualified Code(s): F11.20 - Opioid dependence, uncomplicated (8) PTSD (post-traumatic stress disorder) Current Visit: Yes Status: Chronic Comment: History. (9) Opioid dependence in controlled environment Current Visit: Yes Status: Chronic (10) Substance induced mood disorder Current Visit: Yes Status: Chronic - Initial Treatment Plan Initial Treatment Plan: Zyprexa 5 mg po hs.
[2017-03-18] MEDS ORDERED: SULFAMETHOXAZOLE/TRIMETHOPRIM 800MG/160MG D.S. TABLET PO SCH (10:00)
[2017-03-18] MEDS: ABACAVIR SULFATE 300 MG TABLET PO SCH (10:02)
[2017-03-18] MEDS: BUDESONIDE/FORMETEROL FUMARATE 160/4.5 mcg INHALER IH SCH ×2 (10:02→21:13)
[2017-03-18] MEDS: MEGESTROL ACETATE 400 MG/10 ML UNIT DOSE CUP PO SCH ×2 (10:02→21:13)
[2017-03-18] MEDS: PRENATAL VITAMINS W/ FOLIC ACID TABLET (FP) PO SCH (10:02)
[2017-03-18] MEDS: lamiVUDine 150 MG TABLET PO SCH (10:02)
[2017-03-18] MEDS: amLODIPine BESYLATE 10 MG TABLET (FP) PO SCH (10:02)
[2017-03-18 10:31] LABS: MCH 29.1 pg (25.7-33.7); MCHC 34.1 g/dl (32.0-36.0); MEAN CELL VOLUME 85.3 fl (80-96); MEAN PLT VOLUME 8.3 fl (7.5-11.1); PLATELET COUNT 198 K/MM3 (134-434); RDW 16.2 % (11.6-15.6); WHITE BLOOD COUNT 8.4 K/mm3 (4.0-10.0)
[2017-03-18 10:40] LABS: ALBUMIN 2.7 g/dl (3.4-5.0); BILIRUBIN,TOTAL 0.3 mg/dL (0.2-1.0); CALCIUM 8.1 mg/dL (8.5-10.1); COCKROFT - GAULT 18.1985; CREATININE 2.4 mg/dL (0.55-1.02); TOT PROT 7.7 g/dl (6.4-8.2)
[2017-03-18 11:36] LABS: ANISOCYTOSIS 1+; HYPOCHROMIA FEW; PLATELET ESTIMATE ADEQUATE (NORMAL)
[2017-03-18 11:37] LABS: MICROCYTOSIS 1+
[2017-03-18] MEDS: ALBUTEROL SO4 2.5/IPRATROPIUM 0.5 INH SOL 3 ML VIAL.NEB. NEB PRN (15:36)
[2017-03-18] MEDS: diphenhydrAMINE HCL 50 MG CAPSULE PO PRN (21:13)
[2017-03-18] MEDS: THIAMINE HCL 100 MG TABLET (FP) PO SCH (21:13)
[2017-03-18] MEDS: OLANZapine 5 MG TABLET PO SCH (22:09)
[2017-03-19] MEDS ORDERED: PT OWN MED DRAWER 7, Y5N ONE ×3 (06:34→17:33)
[2017-03-19] MEDS: ALBUTEROL SO4 6.7 GM HFA INHALER IH PRN (07:38)
--- NOTE | 2017-03-19 07:44 | PN ---
[facility] Progress Note Note: INFORMED CLIENT WITH ELEVATED BUN/CREATININE. PER PT SHE IS AWARE STATES HAS BEEN MADE AWARE OF KIDNEY PROBLEMS YEARS AGO (MY KIDNEY LEVELS ARE HIGH"). BUT HAS NO ACCOUNT LIAISON HOSPICE AND HAS NOT TO HAD TO HAVE F/U. DOES C/O URINARY FREQUENCY. BUN/ CREATININE NOTED ELEVATED SINCE 03/10/17 29/3.3 03/11 36/3.0 NOW 34/2.4 Vital Signs Temperature 99.5 F 03/19/17 07:07 Pulse Rate 92 H 03/19/17 07:07 Respiratory Rate 18 03/19/17 07:07 Blood Pressure 128/74 03/19/17 07:07 O2 Sat by Pulse Oximetry (%) Laboratory Tests 03/17/17 03/18/17 03/18/17 14:00 07:50 07:50 WBC 8.4 RBC 4.16 Hgb 12.1 D Hct 35.5 D MCV 85.3 MCHC 34.1 RDW 16.2 H Plt Count 198 MPV 8.3 Neutrophils % 68.0 Lymphocytes % 25.0 Monocytes % 5.0 Band Neutrophils 2.0 Platelet Estimate Adequate Platelet Comment No clumping noted Hypochromic-Microcytic Few Anisocytosis 1+ Microcytosis 1+ Sodium 142 Potassium 4.8 Chloride 110 H Carbon Dioxide 24 Anion Gap 8 BUN 34 H D Creatinine 2.4 H D Creat Clearance w eGFR 20.96 Random Glucose 145 H D Calcium 8.1 L Total Bilirubin 0.3 D AST 26 D ALT 51 D Alkaline Phosphatase 56 Total Protein 7.7 Albumin 2.7 L Urine Color Ltyellow Urine Appearance Clear Urine pH 6.0 Ur Specific [place] 1.015 Urine Protein 2+ H Urine Glucose (UA) Negative Urine Ketones Negative Urine Blood Negative Urine Nitrite Negative Urine Bilirubin Negative Urine Urobilinogen Negative Ur Leukocyte Esterase Trace H Urine RBC 1 Urine WBC 4 Ur Epithelial Cells Rare Urine Bacteria Rare Urine Mucus Rare LABS NOTED REPEAT CHEM/ UA PO HYDRATION ENCOURAGED WILL CONT TO MONITOR.
[2017-03-19] MEDS: FERROUS SO4 325 MG TABLET (FP) PO SCH ×2 (08:43→18:31)
[2017-03-19] MEDS: RITONAVIR 100 MG TABLET PO SCH ×2 (08:43→18:31)
[2017-03-19] MEDS: DARUNAVIR ETHANOLATE 600 MG TAB PO SCH ×2 (08:43→18:31)
[2017-03-19] MEDS: lamiVUDine 150 MG TABLET PO SCH (09:31)
[2017-03-19] MEDS: BUDESONIDE/FORMETEROL FUMARATE 160/4.5 mcg INHALER IH SCH ×2 (09:32→21:29)
[2017-03-19] MEDS: amLODIPine BESYLATE 10 MG TABLET (FP) PO SCH (09:32)
[2017-03-19] MEDS: PRENATAL VITAMINS W/ FOLIC ACID TABLET (FP) PO SCH (09:32)
[2017-03-19] MEDS: MEGESTROL ACETATE 400 MG/10 ML UNIT DOSE CUP PO SCH ×2 (09:32→21:29)
[2017-03-19] MEDS: ABACAVIR SULFATE 300 MG TABLET PO SCH (09:32)
[2017-03-19] MEDS: ALBUTEROL SO4 2.5/IPRATROPIUM 0.5 INH SOL 3 ML VIAL.NEB. NEB PRN ×2 (11:30→17:11)
[2017-03-19 18:24] LABS: URINE APPEARANCE CLEAR; URINE BILIRUBIN NEGATIVE (NEGATIVE); URINE BLOOD NEGATIVE (NEGATIVE); URINE COLOR LTYELLOW; URINE GLUCOSE (UA) NEGATIVE (NEGATIVE); URINE KETONE NEGATIVE (NEGATIVE); URINE LEUK ESTERASE NEGATIVE (NEGATIVE); URINE NITRITE NEGATIVE (NEGATIVE); URINE UROBILINOGEN NEGATIVE E.U./dl (0.2-1.0)
[2017-03-19 18:30] LABS: URINE PROTEIN 2+ (NEGATIVE)
[2017-03-19 18:31] VITALS: BP 139/91; PULSE 102; TEMP 99
[2017-03-19 18:31] LABS: URINE BACTERIA RARE /hpf (NONE SEEN); URINE MUCUS RARE; URINE RBC 1 /hpf (0-3); URINE WBC 1 /hpf (3-5)
--- NOTE | 2017-03-19 19:22 | PN ---
[facility] Progress Note Note: Pt. C/O SOB and wheezing.She spiked low grade temp of 99.5F, 100.2F and 99.0F Vital Signs - 24 hr 03/19/17 03/19/17 03/19/17 00:30 07:07 09:13 Temperature 99.5 F 100.2 F H Pulse Rate 92 H 100 H Respiratory 16 18 18 Rate Blood Pressure 128/74 135/78 03/19/17 18:31 Temperature 99 F Pulse Rate 102 H Respiratory 16 Rate Blood Pressure 139/91 Lungs : B/L inspiratory & expiratory wheezing and rhonchi Nebulizer tx. given, no change Dx. : Acute exacerbation of COPD CRF AIDS P : Pt. will be transferred to ED, report given to Dr. Castillo
[2017-03-19] MEDS: THIAMINE HCL 100 MG TABLET (FP) PO SCH (21:29)
[2017-03-19] MEDS: OLANZapine 5 MG TABLET PO SCH (21:29)
[2017-03-19] MEDS ORDERED: IPRATROPIUM BR 0.02% 0.5 MG/2.5 ML VIAL.NEB. NEB SCH (23:28)
[2017-03-19] MEDS ORDERED: methylPREDNISolone NA SUCC 125 MG/2 ML VIAL IVPB ONE (23:29)
[2017-03-19] MEDS ORDERED: SODIUM CHLORIDE 1,000 ML IV SCH (23:30)
[2017-03-19] MEDS ORDERED: ALBUTEROL SO4 0.083% IH SOL 2.5 MG/3 ML VIAL.NEB. NEB SCH (23:30)
[2017-03-19] MEDS ORDERED: HEPARIN NA (PORCINE) 5,000 UNITS/ML 1ML VIAL SQ SCH (23:45)
[2017-03-20] MEDS ORDERED: methylPREDNISolone NA SUCC 40 MG/1 ML VIAL IVPB SCH (02:00)
== END 2017-03-19 23:28 | disposition short-term general hospital (02) | DRG 772 ==
LOC: YASAS 09:36 → Y3E 12:35
PROVIDERS: ADMIT Psychiatry & Neurology Psychiatry; ATTEND Psychiatry & Neurology Psychiatry
PROC: HZ42ZZZ Group Counseling for Substance Abuse Treatment, Cognitive-Behavioral (ICD-10-PCS; principal; 2017-03-19)
DX: F11.20 Opioid dependence, uncomplicated (principal); F14.20 Cocaine dependence, uncomplicated; F12.10 Cannabis abuse, uncomplicated; F19.24 Other psychoactive substance dependence with psychoactive substance-induced mood disorder; F43.10 Post-traumatic stress disorder, unspecified; J45.20 Mild intermittent asthma, uncomplicated; J44.9 Chronic obstructive pulmonary disease, unspecified; D64.9 Anemia, unspecified; N18.9 Chronic kidney disease, unspecified; Z21 Asymptomatic human immunodeficiency virus [HIV] infection status
CPT/HCPCS: 36415; 80053; 81003; 81015; 85027; 94640

== ENCOUNTER 2017-03-19 19:56 | Inpatient (IN) | payer OTHER ==
[2017-03-19] MEDS ORDERED: DEXAMETHASONE SOD PHOSPHATE 10 MG/1 ML VIAL ONE (20:00)
[2017-03-19] MEDS ORDERED: ALBUTEROL SO4 2.5/IPRATROPIUM 0.5 INH SOL 3 ML VIAL.NEB. NEB ONE ×3 (20:00→23:33)
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
[2017-03-19] MEDS ORDERED: ACETAMINOPHEN 1000 MG/100 ML VIAL (NON FORMULARY) IVPB ONE (20:43)
[2017-03-19] MEDS ORDERED: SODIUM CHLORIDE 0.9% 500 ML INFUS.BAG IV ONE (20:43)
[2017-03-19] MEDS ORDERED: AZITHROMYCIN IVPB 500 MG in DEXTROSE 5%-WATER - 250 ML IVPB ONE (20:43)
[2017-03-19] MEDS ORDERED: CEFTRIAXONE 1 GM in DEXTROSE 5%-WATER - 50 ML IVPB ONE (20:43)
[2017-03-19] MEDS ORDERED: ACETAMINOPHEN INJECTION 100 ML IVPB ONE (20:52)
[2017-03-19 20:53] LABS: PLATELET COUNT 190 K/MM3 (134-434)
[2017-03-19] MEDS ORDERED: AZITHROMYCIN IVPB 250 ML IVPB ONE (20:53)
[2017-03-19] MEDS ORDERED: CEFTRIAXONE 50 ML ONE (20:53)
[2017-03-19 21:04] LABS: MCHC 33.2 g/dl (32.0-36.0); MEAN CELL VOLUME 84.4 fl (80-96); RDW 16.3 % (11.6-15.6); WHITE BLOOD COUNT 13.7 K/mm3 (4.0-10.0)
[2017-03-19 21:05] LABS: INR 0.93 (0.82-1.09); PROTHROMBIN TIME (PATIENT) 10.2 SEC (9.98-11.88)
[2017-03-19 21:19] LABS: ALBUMIN 2.6 g/dl (3.4-5.0); BILIRUBIN,TOTAL 0.4 mg/dL (0.2-1.0); CALCIUM 7.9 mg/dL (8.5-10.1); COCKROFT - GAULT 17.5015; CREATININE 2.6 mg/dL (0.55-1.02); TOT PROT 7.7 g/dl (6.4-8.2)
[2017-03-19 21:35] LABS: PLATELET ESTIMATE ADEQUATE (NORMAL)
[2017-03-19] MEDS ORDERED: INSULIN REGULAR HUMAN 100 UNITS/ML *VIAL IVPUSH ONE (22:44)
[2017-03-19] MEDS ORDERED: DEXTROSE 50%-WATER - 25 GM/50 ML VIAL IVPUSH ONE (22:44)
[2017-03-19] MEDS ORDERED: DEXTROSE 50%-WATER 50 ML DISP.SYRIN ONE (23:29)
--- NOTE | 2017-03-20 01:03 | HP ---
CHIEF COMPLAINT: sob PCP: Dr. Dowling?? at [facility] HISTORY OF PRESENT ILLNESS: This is a 56 year old female with a history of heroin/cocaine abuse, CKD, COPD, Asthma, Hepatitis C, HIV (on HAART), depression, sent over from [facility] due to fever 100.2 and increasing shortness of breath with no improvement with inhalers. Patient states that over the last week she has been coughing (non productive) with worsening shortness of breath and night sweats. She has used her albuterol inhaler over 10x per day. Denies sick contacts. Last used heroin 2 weeks ago (snort and smoked), denies IV current IV drug use. Patient also states that she has had a 60lb weight loss over the last year. She admits to taking medications as directed. Last known CD 4 count was last year (100), and she states her viral load was undetectable then. She has not seen her primary/ HIV doctor recently. Patient has not ever traveled outside of [place]. No pets at home. She lives with her whom she states was treated for tuberculosis many years ago. ER work up notable for leukocytosis, hyperkalemia. Chest CT evident for some left lower lobe consolidation, possible nodules?. Recent Travel: no PAST MEDICAL HISTORY: depression, heroin/cocaine abuse, COPD, Asthma, Hepatitis C, HIV (on HAART), PAST SURGICAL HISTORY: hand Social History: Smokin-3 cig per day Alcohol:no Drugs: heroin, cocaine Family History: Allergies aspirin Allergy (Severe, Verified 03/17/17 10:44) Swelling HOME MEDICATIONS: Home Medications Medication Instructions Recorded Abacavir Sulfate [Abacavir] 300 mg PO DAILY 01/28/17 Darunavir Ethanolate [Prezista -] 600 mg PO BID 01/28/17 Ritonavir [Norvir -] 100 mg PO BID 01/28/17 Albuterol Sulfate Inhaler - 2 puff IH Q4H PRN #1 inhaler 02/02/17 [Ventolin HFA Inhaler -] Amlodipine Besylate [Norvasc -] 10 mg PO DAILY #30 tablet 02/02/17 Budesonide/Formeterol Fumarate 2 puff IH BID #1 inhaler 02/02/17 [SYMBICORT 160/4.5mcg -] Ferrous Sulfate [Feosol] 325 mg PO BIDWM #60 cap 02/02/17 Sulfamethoxazole/Trimethoprim 1 tab PO DAILY #30 tablet 02/02/17 [Bactrim Ds -] Megestrol Acetate 400 mg PO BID 03/09/17 Lamivudine [Epivir -] 150 mg PO DAILY 03/17/17 Olanzapine [ZyPREXA -] 5 mg PO HS 03/19/17 Acetaminophen [Pain Relief] 650 mg PO Q4H PRN 03/20/17 Albuterol 2.5/Ipratropium 0.5 1 neb NEB Q4H PRN 03/20/17 [Duoneb -] Diphenhydramine [Benadryl -] 50 mg PO HSMR1 PRN 03/20/17 Mag Hydrox/Al Hydrox/Simeth 30 ml PO Q6H PRN 03/20/17 [Mylanta *Suspension*] REVIEW OF SYSTEMS CONSTITUTIONAL: Positive:fever, loss of appetite, weight loss Absent: chills, diaphoresis, generalized weakness, malaise, HEENT: Positive: nasal congestion, difficulty swallowing Absent: rhinorrhea, nasal congestion, throat pain, throat swelling,, mouth swelling, ear pain, eye pain, visual changes CARDIOVASCULAR: Absent: chest pain, syncope, palpitations, irregular heart rate, lightheadedness , peripheral edema RESPIRATORY: Positive:cough, shortness of breath, dyspnea with exertion,wheezing Absent: orthopnea, stridor, hemoptysis GASTROINTESTINAL: Absent: abdominal pain, abdominal distension, nausea, vomiting, diarrhea, constipation, melena, hematochezia GENITOURINARY: Absent: dysuria, frequency, urgency, hesitancy, hematuria, flank pain, genital pain MUSCULOSKELETAL: Absent: myalgia, arthralgia, joint swelling, back pain, neck pain SKIN: Absent: rash, itching, pallor HEMATOLOGIC/IMMUNOLOGIC: Absent: easy bleeding, easy bruising, lymphadenopathy, frequent infections ENDOCRINE: Absent: unexplained weight gain, unexplained weight loss, heat intolerance, cold intolerance NEUROLOGIC: Absent: headache, focal weakness or paresthesias, dizziness, unsteady gait, seizure, mental status changes, bladder or bowel incontinence PSYCHIATRIC: Absent: anxiety, depression, suicidal or homicidal ideation, hallucinations. PHYSICAL EXAMINATION Vital Signs - 24 hr 03/20/17 00:05 Temperature 99.7 F H Pulse Rate [ 105 H Apical] Respiratory 20 Rate Blood Pressure 116/73 [Right Arm] O2 Sat by Pulse 95 Oximetry (%) GENERAL: Awake, alert, and fully oriented,anxious; on NC HEAD: Normal with no signs of trauma. EYES: Pupils equal, round and reactive to light, extraocular movements intact, sclera anicteric, conjunctiva clear. No lid lag. EARS, NOSE, THROAT: tongue with whit non scrapable plaque LUNGS: very course bilateral breath sound,+wheezes, HEART: Regular rate and rhythm, normal S1 and S2 without murmur, rub or gallop. ABDOMEN: Soft, nontender, not distended, normoactive bowel sounds, no guarding, no rebound, no masses. No hepatomegaly or splenomegaly. MUSCULOSKELETAL: Normal range of motion at all joints. No bony deformities or tenderness. No CVA tenderness. UPPER EXTREMITIES: 2+ pulses, warm, well-perfused. No cyanosis. No clubbing. No peripheral edema. LOWER EXTREMITIES: 2+ pulses, warm, well-perfused. No calf tenderness. No peripheral edema. NEUROLOGICAL: Cranial nerves II-XII intact. Normal speech. Normal gait. PSYCHIATRIC: Cooperative. Good eye contact. Appropriate mood and affect. SKIN: Warm, dry, normal turgor, no rashes or lesions noted, normal capillary refill. ASSESSMENT/PLAN: 56 year old female with asthma, COPD, CKD, drugg abuse, Hep C, HIV, sent over from [facility] due with low grade fever and sob. Chest CT showing probable pneumonia, need to rule out tuberculoses due to patient symptoms and history. #sepsis secondary to CAP, r/o TB or other etiology: -sputum and blood cultures -chest CT reviewed; Lung nodules -IV ceftriaxone 1gm daily; IV doxycyline 100mg bid (to cover atypicals, azithro prolongs qt and interacts with other qt prolonging agents that patient is taking ) -legionella antigen -histo, coccidio, crypto antigen, mycoplasma Igm, nasopharyngeal pcr -tb quantiuron gold -afb sputum x3 -isolation precautions -pulmonary consult/ID consult #COPD/asmtha exac -bedside peak flow -IV solumedrol 125mg x1 -IV solumedrol 40mg q8h -duonebs tamiko/ albuterol tamiko #hyperkalemia secondary to medication? -patient was on bactrim that can cause inc K; will d/c for now and switch to atovoquone -trend k #HIV: -CD4 count, viral load -continue HIV meds #HTN: -norvasc 10mg qd #Hepatits C: -cont home meds #Chronic kidney disease: has never had renal work up -baseline 2.? -BUN /Cr today37/2.6 -will check urine electrolytes, cr, UA -renal/bladder US -nephrology consult #delmi esophagitis -fluconazole 100mg po daily 7-14days #depression: -cont home meds FEN: Fluids: 100ml/hr NS Electrolytes: hypo k; trend Diet: regular VTE prophylaxis: heparin sq Disposition: cont IV antibiotics; need to r/o TB Problem List - Problem (1) Pneumonia Code(s): J18.9 - PNEUMONIA, UNSPECIFIED ORGANISM (2) Weight loss Code(s): R63.4 - ABNORMAL WEIGHT LOSS (3) Asthma Code(s): J45.909 - UNSPECIFIED ASTHMA, UNCOMPLICATED Qualifiers: Asthma severity: mild intermittent Asthma complication type: uncomplicated Qualified Code(s): J45.20 - Mild intermittent asthma, uncomplicated (4) COPD (chronic obstructive pulmonary disease) Code(s): J44.9 - CHRONIC OBSTRUCTIVE PULMONARY DISEASE, UNSPECIFIED (5) Cocaine dependence Code(s): F14.20 - COCAINE DEPENDENCE, UNCOMPLICATED (6) Drug-induced mood disorder Code(s): F19.94 - OTH PSYCHOACTIVE SUBSTANCE USE, UNSP W MOOD DISORDER (7) HTN (hypertension) Code(s): I10 - ESSENTIAL (PRIMARY) HYPERTENSION (8) Hx of AIDS Code(s): B20 - HUMAN IMMUNODEFICIENCY VIRUS [HIV] DISEASE (9) Esophagitis Code(s): K20.9 - ESOPHAGITIS, UNSPECIFIED (10) Chronic kidney disease Code(s): N18.9 - CHRONIC KIDNEY DISEASE, UNSPECIFIED (11) Hypokalemia Code(s): E87.6 - HYPOKALEMIA (12) Depression Code(s): F32.9 - MAJOR DEPRESSIVE DISORDER, SINGLE EPISODE, UNSPECIFIED (13) Hepatitis C Code(s): B19.20 - UNSPECIFIED VIRAL HEPATITIS C WITHOUT HEPATIC COMA Visit type - Emergency Visit Emergency Visit: Yes ED Registration Date: 03/19/17 Care time: The patient presented to the Emergency Department on the above date and was hospitalized for further evaluation of their emergent condition. - New Patient This patient is new to me today: Yes Date on this admission: 03/20/17 - Critical Care Critical Care patient: No
--- NOTE | 2017-03-20 01:40 | PN ---
<Anand Jalloh - Last Filed: 03/20/17 01:39> Teaching Attending Note Name of Resident: Brook Carrion ATTENDING PHYSICIAN STATEMENT I saw and evaluated the patient. I reviewed the resident's note and discussed the case with the resident. I agree with the resident's findings and plan as documented. SUBJECTIVE: OBJECTIVE: ASSESSMENT AND PLAN: <Joycelyn Butts - Last Filed: 03/20/17 01:44> Teaching Attending Note ATTENDING PHYSICIAN STATEMENT I saw and evaluated the patient. I reviewed the resident's note and discussed the case with the resident. I agree with the resident's findings and plan as documented. SUBJECTIVE: 56 yo F with a PMHx of asthma, COPD, AIDS, anemia, HTN, Hep C, seizures, substance abuse (heroin, cocaine) presents [facility] with fever, SOB and productive cough for 1 week. Patient states that 2 weeks ago she used heroin and cocaine snorting and smoking. Patient was sent to ED for further evaluation of a fever of 100.2. Patient reports pain with swallowing. Patient reports recent 60 lb weight loss over past 6 months. Patient denies sick contacts. Patient denies recent travel. Patient states that she is compliant with her home medications for HIV. OBJECTIVE: Last Vital Signs Temp Pulse Resp BP Pulse Ox 99.7 F H 105 H 20 116/73 95 03/20/17 00:05 03/20/17 00:05 03/20/17 00:05 03/20/17 00:05 03/20/17 00:05 GENERAL: Awake, alert, and fully oriented, Patient appears to be in respiratory distress. Unable to speak in full sentences. HEENT: Atraumatic. whitish plaque on her tongue unable to be scrapped off with tongue depressor. Normocephalic. No sinus tenderness. No LAD. NECK: No JVD. No thyroid masses. Supple. LUNGS: Diffuses wheezing in all lung meadows bilaterally. No rhonchi or rales. HEART: Tachycardia and regualr rhythm, normal S1 and S2, no murmurs, rubs or gallops, peripheral pulses normal and equal bilaterally. ABDOMEN: Soft, nontender, normoactive bowel sounds. No guarding, no rebound. No Masses. MUSCULOSKELETAL: No joint tenderness or erythema. No muscle tenderness. Normal muscle bulk and tone. EXTREMITIES: Normal inspection, No edema. No clubbing or cyanosis. Moves all extremities. NEUROLOGICAL: Normal speech, gait not assessed, no focal sensorimotor deficits. SKIN: Warm, dry, normal turgor, no rashes or lesions noted. CBCD WBC 13.7 K/mm3 (4.0-10.0) H D 03/19/17 20:44 RBC 3.96 M/mm3 (3.60-5.2) 03/19/17 20:44 Hgb 11.1 GM/dL (10.7-15.3) 03/19/17 20:44 Hct 33.4 % (32.4-45.2) 03/19/17 20:44 MCV 84.4 fl (80-96) 03/19/17 20:44 MCHC 33.2 g/dl (32.0-36.0) 03/19/17 20:44 RDW 16.3 % (11.6-15.6) H 03/19/17 20:44 Plt Count 190 K/MM3 (134-434) 03/19/17 20:44 MPV 8.0 fl (7.5-11.1) 03/19/17 20:44 CMP Sodium 140 mmol/L (136-145) 03/19/17 20:44 Potassium 5.5 mmol/L (3.5-5.1) H 03/19/17 20:44 Chloride 110 mmol/L (98-107) H 03/19/17 20:44 Carbon Dioxide 22 mmol/L (21-32) 03/19/17 20:44 Anion Gap 8 (8-16) 03/19/17 20:44 BUN 37 mg/dL (7-18) H 03/19/17 20:44 Creatinine 2.6 mg/dL (0.55-1.02) H 03/19/17 20:44 Creat Clearance w eGFR 19.11 (>60) 03/19/17 20:44 Calcium 7.9 mg/dL (8.5-10.1) L 03/19/17 20:44 Total Bilirubin 0.4 mg/dL (0.2-1.0) D 03/19/17 20:44 AST 24 U/L (15-37) 03/19/17 20:44 ALT 50 U/L (12-78) 03/19/17 20:44 Alkaline Phosphatase 54 U/L (45-117) 03/19/17 20:44 Total Protein 7.7 g/dl (6.4-8.2) 03/19/17 20:44 Albumin 2.6 g/dl (3.4-5.0) L 03/19/17 20:[address] Reticulonodular densities bilateral lungs, probably atypical infection. Cluster of slightly more confluent nodules up to 1 cm in lingula, advise follow-up after treatment. No pleural effusions. Dextroscoliosis. Partly seen punctate hyperdensity periportal region, possibly cholelithiasis versus calcified lymph node, vascular calcification or artifact. ASSESSMENT AND PLAN: 56 yo F with a PMHx of asthma, COPD, AIDS, anemia, HTN, Hep C, seizures, substance abuse (heroin, cocaine) presents with acute asthma/COPD exacerbation. 1.) Acute asthma/COPD exacerbation may have been triggered by upper respiratory infection/pneumonia or may have been triggered by illicit substance abuse or noncompliance to medications. -Methylprednisolone 125 mg IV STAT -Magnesium sulfate IV -Prednisone 40 mg PO BID -Duonebs Q 4 hours -Measure peak flow Q 6 hours -Respiratory watch 2.) CAP may be atypical pneumonia as there were reticulonodular densities bilateral lungs and LLL infiltrate found on chest CT -Ceftriaxone 1 g Q 24 hours -Doxycycline 100 mg IV Q 12 hours -Sputum culture -Blood cultures x2 -Urine legionella antigen -Mycoplasma IGM -Nasopharyngeal PCR for viruses 3.) Hx of HIV. Unknown CD4 count. Patient reports that it was around 100 1 year ago. -Resume ART medications -Hold bactrim due to hyperkalemia -Start atovaquone 1,500 mg PO daily for PJP ppx -Send T lymphocyte count and viral load -ID consult 4.) Lung nodules found on cat scan in setting of immunosuppression and who was treated for pulmonary TB (as per patient) warrant to r/o active pulmonary TB. should also r/o histoplasmosis coccidioides and cryptococcus. -Airborne isolation -Send 3 sputums for AFB smear and culture and PCR -Send histoplasma urine antigen -Cryptococcus serum antigen -Coccidoides serology 5.) Oral candidiasis with possible esophageal thrush -Fluconazole 200 mg PO STAT then 100 mg PO daily -Check ECG for QTC prolongation 6.) Hyperkalemia may be secondary to bactrim s/p insulin and glucose -Hold bactrim -Repeat K Diet -Regular diet DVT ppx -scds Documentation is prepared by Joycelyn Butts acting as biomedical technician for Anand Jalloh M.D.
[2017-03-20] MEDS ORDERED: ALBUTEROL SO4 6.7 GM HFA INHALER IH PRN (02:08)
[2017-03-20] MEDS ORDERED: methylPREDNISolone NA SUCC 125 MG/2 ML VIAL IVPB ONE (02:16)
[2017-03-20] MEDS ORDERED: methylPREDNISolone NA SUCC 125 MG/2 ML VIAL ONE (02:31)
[2017-03-20] MEDS: diphenhydrAMINE HCL 25 MG CAPSULE (FP) PO PRN ×2 (02:50→20:57)
[2017-03-20] MEDS: ACETAMINOPHEN 325 MG TABLET (FP) PO PRN ×2 (02:51→20:58)
[2017-03-20] MEDS: OLANZapine 5 MG TABLET PO SCH ×3 (02:51→21:20)
[2017-03-20 03:24] VITALS: BMI 20.4
[2017-03-20] MEDS: ALBUTEROL SO4 2.5/IPRATROPIUM 0.5 INH SOL 3 ML VIAL.NEB. NEB SCH ×4 (06:25→23:02)
[2017-03-20] MEDS ORDERED: PT OWN MED DRAWER 7, Y5N ONE ×3 (08:29→20:43)
[2017-03-20] MEDS ORDERED: CEFTRIAXONE 1 GM in DEXTROSE 5%-WATER - 50 ML IVPB SCH (10:00)
[2017-03-20] MEDS ORDERED: FLUCONAZOLE 100 MG TABLET (UD) PO SCH (10:00)
[2017-03-20] MEDS ORDERED: AZITHROMYCIN IVPB 250 MG in DEXTROSE 5%-WATER - 250 ML IVPB SCH (10:00)
[2017-03-20] MEDS ORDERED: methylPREDNISolone NA SUCC 40 MG/1 ML VIAL IVPB SCH (10:00)
[2017-03-20] MEDS: amLODIPine BESYLATE 10 MG TABLET (FP) PO SCH (10:29)
[2017-03-20] MEDS: FERROUS SO4 325 MG TABLET (FP) PO SCH ×2 (10:29→17:09)
[2017-03-20] MEDS: ATOVAQUONE 750 MG/5 ML (UNIT-DOSE PACKAGING) PO SCH (10:31)
[2017-03-20] MEDS: DARUNAVIR ETHANOLATE 600 MG TAB PO SCH ×2 (10:32→22:02)
[2017-03-20] MEDS: RITONAVIR 100 MG TABLET PO SCH ×2 (10:32→22:02)
[2017-03-20] MEDS: ABACAVIR SULFATE 300 MG TABLET PO SCH (10:32)
[2017-03-20] MEDS: lamiVUDine 150 MG TABLET PO SCH (10:32)
[2017-03-20] MEDS: cefTRIAXone 1 GM/50 ML BAG (PRE-DOCKED) IVPB SCH (10:34)
[2017-03-20 11:26] LABS: MCH 28.5 pg (25.7-33.7); MCHC 33.4 g/dl (32.0-36.0); MEAN CELL VOLUME 85.4 fl (80-96); PLATELET COUNT 169 K/MM3 (134-434); RDW 16.4 % (11.6-15.6); WHITE BLOOD COUNT 19.4 K/mm3 (4.0-10.0)
--- NOTE | 2017-03-20 11:26 | PN ---
Progress Note (short form) - Note Progress Note: Subjective: she feels better today , has not been abl eto produce any sputum. reported fevr , clear mucus x 2 weeks at home . SOB has improved and chest tightness has resolved denies diarrhea , had abd pain yesterday but not today . Objective: Vital Signs: Last Vital Signs Temp Pulse Resp BP Pulse Ox 99.2 F 85 20 114/61 96 03/20/17 06:20 03/20/17 06:20 03/20/17 06:20 03/20/17 06:20 03/20/17 05:06 Laboratory Results - last 24 hr 03/19/17 03/19/17 03/19/17 20:44 20:44 20:44 WBC 13.7 H D RBC 3.96 Hgb 11.1 Hct 33.4 MCV 84.4 MCHC 33.2 RDW 16.3 H Plt Count 190 MPV 8.0 Neutrophils % 67.0 Lymphocytes % 19.0 D Monocytes % 12.0 H D Band Neutrophils 2.0 Platelet Estimate Adequate Platelet Comment No clumping noted INR 0.93 Sodium 140 Potassium 5.5 H Chloride 110 H Carbon Dioxide 22 Anion Gap 8 BUN 37 H Creatinine 2.6 H Creat Clearance w eGFR 19.11 Random Glucose 97 D Lactic Acid Calcium 7.9 L Total Bilirubin 0.4 D AST 24 ALT 50 Alkaline Phosphatase 54 Total Protein 7.7 Albumin 2.6 L 03/19/17 20:47 WBC RBC Hgb Hct MCV MCHC RDW Plt Count MPV Neutrophils % Lymphocytes % Monocytes % Band Neutrophils Platelet Estimate Platelet Comment INR Sodium Potassium Chloride Carbon Dioxide Anion Gap BUN Creatinine Creat Clearance w eGFR Random Glucose Lactic Acid 1.3 Calcium Total Bilirubin AST ALT Alkaline Phosphatase Total Protein Albumin Current Medications Generic Name Dose Route Start Last Admin Trade Name Freq PRN Reason Stop Dose Admin Abacavir Sulfate 300 mg 03/20/17 10:00 03/20/17 10:32 Ziagen - PO 300 mg DAILY PALOMA Administration Acetaminophen 650 mg 03/20/17 02:10 03/20/17 02:51 Tylenol - PO 650 mg Q4H PRN Administration FEVER OR PAIN Albuterol Sulfate 2 puff 03/20/17 02:08 Ventolin Hfa Inhaler - IH Q4H PRN ASTHMA Albuterol/Ipratropium 1 amp 03/20/17 06:00 03/20/17 06:25 Duoneb - NEB 1 amp QIDR PALOMA Administration Amlodipine Besylate 10 mg 03/20/17 10:00 03/20/17 10:29 Norvasc - PO 10 mg DAILY PALOMA Administration Atovaquone 1,500 mg 03/20/17 08:00 03/20/17 10:31 Mepron - PO 1,500 mg DAILY@0800 PALOMA Administration Ceftriaxone Sodium 1 gm 03/20/17 10:00 03/20/17 10:34 Rocephin 1gm Ivpb (Pre-Docked) IVPB 1 gm DAILY PALOMA Administration Darunavir 600 mg 03/20/17 10:00 03/20/17 10:32 Prezista - PO 600 mg BID PALOMA Administration Diphenhydramine HCl 50 mg 03/20/17 02:10 03/20/17 02:50 Benadryl - PO 50 mg HS PRN Administration INSOMNIA Ferrous Sulfate 325 mg 03/20/17 08:00 03/20/17 10:29 Feosol - PO Not Given BIDWM PALOMA Fluconazole 100 mg 03/20/17 10:00 03/20/17 10:29 Diflucan - PO 100 mg DAILY [facility]OMA Administration Doxycycline Hyclate 100 mg/ 100 mls @ 50 mls/hr 03/20/17 10:00 Dextrose IVPB BID PALOMA Lamivudine 150 mg 03/20/17 10:00 03/20/17 10:32 Epivir - PO 150 mg DAILY [facility]OMA Administration Methylprednisolone Sodium Succinate 40 mg 03/20/17 10:00 03/20/17 10:34 Solu-Medrol - IVPB 40 mg Q8H-IV PLAOMA Administration Olanzapine 5 mg 03/20/17 02:45 03/20/17 02:51 Zyprexa - PO 5 mg HS PALOMA Administration Ritonavir 100 mg 03/20/17 10:00 03/20/17 10:32 Norvir - PO 100 mg BID PALOMA Administration Physical Exam: NAD , AAOx3. HEENT: MMM, growth of bucal mucosa , some of which is slightly ehitish . clear oropharynx. Lungs : course breath sounds , prolonged exp phase, rales Abd : soft, ND, TTP in All quadrants. not able to evaluate hepatomegaly due to voluntary guarding . no rebound tenderness or involuntary guarding . NL bs Ext : no edema dry scaly skin on feet . no rash on skin except fro scabbing acne like lesions on upper back Imaging: CT scan of chest images reviewed Assessment/Plan: 56 y/o lady with h/o AIDS, COPD ,anemia , HTN, Hep C , h/o noncompliance and substance abuse ( heroin and cocaine last used 2 weeks ago ) , she presented form [facility] with SOB and productive cough with fevers for 2 weeks . she was found to have LLL PNA and COPD exacerbation 1- sepsis 2/2 LLL PNA: likely community acquired. but due to her immuno- compromised status other opportunistic infections might need to be r/o - cont CTX and doxy - follow blood cx and sputum cx. - send PCP smear - follow up on mycoplasma abs and legionella /strep urine Ag - histoplasma , cryptococcus , and coccidoes as she has small nodules in her lungs - Sputum for AFB - worsening leukocytosis is probably due to steroids -ID evaluation . 2- Acute COPD exacerbation 2/2 PNA : slightly improved - cont Steroids ( decrease dose to 40 BID ) - Duo-NEbs . Add PRN Nebs - add symbicort - taper steroids quickly 3- AIDS : CD4 count of 100 per pt . SHe follows with HIV Doc in [place] . - CD4 pending - cont her meds ( not compliant when she uses drugs ) 4- substance abuse : last use 2 weeks ago. monitor fro any signs 5- Buccal mucosa lesions : it does not appear like thrush. ? warts - dc diflucan unless felt otherwise by ID 6- dysphagia : speech eval 7- CKD : Cr at bse line - cont to monitor - renal US pending - repat BMP now 8- hyperkalemia with peaked T waves : received insulin in Er. -repeat K now 9- DVT pX Visit type - Emergency Visit Emergency Visit: Yes ED Registration Date: 03/19/17 Care time: The patient presented to the Emergency Department on the above date and was hospitalized for further evaluation of their emergent condition. - New Patient This patient is new to me today: Yes Date on this admission: 03/20/17 - Critical Care Critical Care patient: No
[2017-03-20] MEDS ORDERED: ALBUTEROL SO4 2.5/IPRATROPIUM 0.5 INH SOL 3 ML VIAL.NEB. NEB PRN (11:35)
[2017-03-20 11:48] LABS: CALCIUM 8.4 mg/dL (8.5-10.1); COCKROFT - GAULT 15.351
[2017-03-20 12:06] LABS: METAMYELOCYTE 1 % (0-2); PLATELET ESTIMATE ADEQUATE (NORMAL)
[2017-03-20] MEDS ORDERED: CALCIUM GLUCONATE 10% - 1,000 MG/10 ML VIAL IVPUSH ONE (12:22)
[2017-03-20] MEDS ORDERED: DEXTROSE 50%-WATER - 25 GM/50 ML VIAL IVPUSH ONE (12:22)
[2017-03-20] MEDS ORDERED: INSULIN REGULAR HUMAN 100 UNITS/ML *VIAL IVPUSH ONE (12:24)
[2017-03-20] MEDS ORDERED: SODIUM POLYSTYRENE SULFONATE 15 GM/60 ML BOTTLE PO ONE (12:25)
[2017-03-20] MEDS ORDERED: ALBUTEROL SO4 0.5 % INH SOLN 2.5 MG/0.5 ML VIAL.NEB. NEB ONE (12:30)
[2017-03-20] MEDS: DOXYCYCLINE INJECTION 100 MG in DEXTROSE 5%-WATER - 100 ML IVPB SCH ×3 (13:19→21:20)
[2017-03-20] MEDS: BUDESONIDE/FORMETEROL FUMARATE 160/4.5 mcg INHALER IH SCH ×2 (13:19→20:59)
[2017-03-20] MEDS ORDERED: INSULIN (NOVOLOG) ASPART 100 UNITS/ML 10ML VIAL ONE (14:39)
--- NOTE | 2017-03-20 14:48 | PN ---
Progress Note (short form) - Note Progress Note: ID Consult dictated Acute exacerbation COPD LENI infiltrate ?comm acquired/ atypical ? AFB Neoplasm HIV /AIDS Azotemia Polysubstance use Await c/s Sputum AFB, Quantiferon CD4 Empiric ceftriaxone/ zithromax ART, PCP prophyaxis Steroids, bronchodilators
[2017-03-20 14:51] LABS: URINE APPEARANCE CLEAR; URINE BILIRUBIN NEGATIVE (NEGATIVE); URINE BLOOD NEGATIVE (NEGATIVE); URINE COLOR LTYELLOW; URINE GLUCOSE (UA) NEGATIVE (NEGATIVE); URINE KETONE NEGATIVE (NEGATIVE); URINE LEUK ESTERASE NEGATIVE (NEGATIVE); URINE NITRITE NEGATIVE (NEGATIVE); URINE UROBILINOGEN NEGATIVE E.U./dl (0.2-1.0)
[2017-03-20 14:52] LABS: URINE PROTEIN 2+ (NEGATIVE)
[2017-03-20 14:56] LABS: URINE MUCUS RARE; URINE RBC 1 /hpf (0-3); URINE WBC 1 /hpf (3-5)
[2017-03-20 16:06] LABS: URINE CREATININE 46.3 mg/dL (20-320)
--- NOTE | 2017-03-20 16:23 | EKG ---
Test Reason : Blood Pressure : / mmHG Vent. Rate : 090 BPM Atrial Rate : 090 BPM P-R Int : 122 ms QRS Dur : 068 ms QT Int : 374 ms P-R-T Axes : 070 006 059 degrees QTc Int : 457 ms NORMAL SINUS RHYTHM NORMAL ECG WHEN COMPARED WITH ECG OF 19-MAR-2017 21:28, NO SIGNIFICANT CHANGE WAS FOUND Confirmed by JARED HOOK MD ([id number]) on 03/20/2017 4:23:32 PM Referred By: Salvador WOOD Confirmed By:JARED HOOK MD
--- NOTE | 2017-03-20 16:26 | EKG ---
Test Reason : Blood Pressure : / mmHG Vent. Rate : 090 BPM Atrial Rate : 090 BPM P-R Int : 118 ms QRS Dur : 066 ms QT Int : 388 ms P-R-T Axes : 073 -18 063 degrees QTc Int : 474 ms NORMAL SINUS RHYTHM NORMAL ECG WHEN COMPARED WITH ECG OF 12-MAR-2017 12:31, NO SIGNIFICANT CHANGE WAS FOUND Confirmed by JARED HOOK MD ([id number]) on 03/20/2017 4:26:25 PM Referred By: Confirmed By:JARED HOOK MD
[2017-03-20] MEDS: methylPREDNISolone NA SUCC 40 MG/1 ML VIAL IVPB SCH ×2 (20:58→21:20)
[2017-03-20] MEDS: NYSTATIN 500,000 UNITS/5 ML SUSPENSION PO SCH ×2 (22:08→23:05)
[2017-03-21] MEDS: ALBUTEROL SO4 2.5/IPRATROPIUM 0.5 INH SOL 3 ML VIAL.NEB. NEB SCH ×3 (06:21→18:00)
[2017-03-21] MEDS: NYSTATIN 500,000 UNITS/5 ML SUSPENSION PO SCH ×2 (06:37→11:20)
[2017-03-21 07:13] LABS: BASOPHIL 0.1 % (0-2.0); MCH 28.6 pg (25.7-33.7); MCHC 33.9 g/dl (32.0-36.0); MEAN CELL VOLUME 84.4 fl (80-96); MEAN PLT VOLUME 8.8 fl (7.5-11.1); NEUTROPHILS 90.9 % (42.8-82.8); PLATELET COUNT 154 K/MM3 (134-434); RDW 16.3 % (11.6-15.6); WHITE BLOOD COUNT 13.8 K/mm3 (4.0-10.0)
[2017-03-21 07:45] LABS: CALCIUM 7.7 mg/dL (8.5-10.1); COCKROFT - GAULT 16.4475; CREATININE 2.8 mg/dL (0.55-1.02)
[2017-03-21] MEDS ORDERED: PT OWN MED DRAWER 7, Y5N ONE ×2 (09:11→21:25)
[2017-03-21] MEDS: DOXYCYCLINE INJECTION 100 MG in DEXTROSE 5%-WATER - 100 ML IVPB SCH (09:20)
[2017-03-21] MEDS: ATOVAQUONE 750 MG/5 ML (UNIT-DOSE PACKAGING) PO SCH (09:20)
[2017-03-21] MEDS: FERROUS SO4 325 MG TABLET (FP) PO SCH ×2 (09:20→17:55)
[2017-03-21] MEDS: DARUNAVIR ETHANOLATE 600 MG TAB PO SCH ×2 (09:21→21:35)
[2017-03-21] MEDS: amLODIPine BESYLATE 10 MG TABLET (FP) PO SCH (09:21)
[2017-03-21] MEDS: RITONAVIR 100 MG TABLET PO SCH ×2 (09:21→21:35)
[2017-03-21] MEDS: ABACAVIR SULFATE 300 MG TABLET PO SCH (09:22)
[2017-03-21] MEDS: lamiVUDine 150 MG TABLET PO SCH (09:22)
[2017-03-21] MEDS: methylPREDNISolone NA SUCC 40 MG/1 ML VIAL IVPB SCH ×2 (09:23→21:35)
[2017-03-21] MEDS: BUDESONIDE/FORMETEROL FUMARATE 160/4.5 mcg INHALER IH SCH ×2 (09:23→21:36)
--- NOTE | 2017-03-21 10:41 | CONSULT ---
Admitting History and Physical - Primary Care Physician PCP: Zaki Castillo - Admission History of Present Illness: Per EMR: "56 year old female with asthma, COPD, CKD, drugg abuse, Hep C, HIV, sent over from [facility] due with low grade fever and sob. Chest CT showing probable pneumonia, need to rule out tuberculoses due to patient symptoms and history. " Per ID Consult "Acute exacerbation COPD LENI infiltrate ?comm acquired/ atypical ? AFB Neoplasm HIV /AIDS Azotemia Polysubstance use" History Source: Patient, Medical Record Limitations to Obtaining History: No Limitations - Past Medical History ...LMP: 11/15/11 ...: No - Smoking History Smoking history: Current every day smoker Have you smoked in the past 12 months: Yes Aproximately how many cigarettes per day: 3 - Alcohol/Substance Use Hx Alcohol Use: No History - Admission Reason For Visit: HX OF AIDS, COPD, HTN - Diagnostics X-ray: Report Reviewed CT Scan: Report Reviewed - General Mental Status: Alert and Oriented, Awake and Alert, Able to Follow Commands Attention: Intact Ability to Follow Directions: Excellent Head/Neck Control: WFL - Hearing Hearing: Normal Hearing Aide: No With Patient: No Speech Evaluation - Communication Primary Language: ALBANIAN Communication: Yes: Within Normal Limits Oral Expression Ability: Yes: No Impairment - Speech Production Able to Make Needs Known: Yes: WNL Intelligibility: Yes: WNL - Speech Characteristics Voice Loudness: Normal Voice Pitch: Yes: Normal Voice Phonatory-based Quality: Yes: Normal Speech Pattern: Normal Speech Clarity: < 100% Nasal Resonance: Normal Articulation: Yes: Precise - Swallow Evaluation/Bedside Assessment Current Nutritional Intake: Regular, Thin Liquids Oral Secretions: Yes: WFL Dentition: Yes: Edentulous Facial Symmetry at Rest: Symmetrical Facial Symmetry on Retraction: Symmetrical Sensation: Normal Against Resistance Opening: Normal Against Resistance Closing: Normal Pucker Lips: Normal Smile: Normal Lingual Movement: Normal, Symmetric (thrush/Nystatin ordered 6/) Lingual Speed of Movement: Normal Lingual Movement Strgth Against Opposition: Normal Lingual Movement Characteristics: Normal Velopharyngeal Movement: Normal Laryngeal Elevation: WFL Laryngeal Movement: Able to Palpate Rate of Intake: WFL Bolus Size: WFL Labial Seal: WFL Chewing: Impaired (limited, edentulous.c/o food sticking in throat x 2 months.) Oral Prep Time: Increased (with solids) A-P Transit: WFL Pocketing: None Timing of Swallow: WFL Odynophagia: Pharyngeal Coughing/Throat Clear: No Change in Voice: No Recommendations - Speech Evaluation, Impression/Plan Impression: thrush/Nystatin ordered 03/20.Pharyngeal odynophagia. Mastication limited, edentulous. c/o food sticking in throat x 2 months. h/o smoking.Good vocal quality. Pt wants soft regular and chopped meat. - Dysphagia Impressions/Plan Dysphagia Impressions: Ongoing Evaluation *Silent aspiration: cannot be R/O at bedside Recommendations: GI Consult (if difficulty persists, following tx for candidiasis.), Modified Barium Swallow (if difficulty persists.) - Recommendations Diet Consistency: Regular (soft, easy to chew,chopped meat.) Liquids: Thin Liquids Supplement: Other (as indicated)
[2017-03-21] MEDS: cefTRIAXone 1 GM/50 ML BAG (PRE-DOCKED) IVPB SCH (11:20)
--- NOTE | 2017-03-21 11:31 | PN ---
Progress Note, Physician Chief Complaint: ID This is a 56 year old female HIV pos AIDS by T cells 100 and undectable viral load Has fever. Has never left [place] state and always PPD negative in the [facility] Dysphagia - Current Medication List Current Medications: Active Medications Abacavir Sulfate (Ziagen -) 300 mg PO DAILY [facility] Last Admin: 03/21/17 09:22 Dose: 300 mg Acetaminophen (Tylenol -) 650 mg PO Q4H PRN PRN Reason: FEVER OR PAIN Last Admin: 03/20/17 20:58 Dose: 650 mg Albuterol Sulfate (Ventolin Hfa Inhaler -) 2 puff IH Q4H PRN PRN Reason: ASTHMA Albuterol/Ipratropium (Duoneb -) 1 amp NEB QIDR [facility] Last Admin: 03/21/17 06:21 Dose: 1 amp Albuterol/Ipratropium (Duoneb -) 1 amp NEB Q6H PRN PRN Reason: SHORTNESS OF BREATH Amlodipine Besylate (Norvasc -) 10 mg PO DAILY [facility] Last Admin: 03/21/17 09:21 Dose: 10 mg Atovaquone (Mepron -) 1,500 mg PO DAILY@0800 [facility] Last Admin: 03/21/17 09:20 Dose: 1,500 mg Budesonide/Formoterol Fumarate (Symbicort 160/4.5mcg -) 1 puff IH BID [facility] Last Admin: 03/21/17 09:23 Dose: 1 puff Ceftriaxone Sodium (Rocephin 1gm Ivpb (Pre-Docked)) 1 gm IVPB DAILY [facility] Last Admin: 03/20/17 10:34 Dose: 1 gm Darunavir (Prezista -) 600 mg PO BID [facility] Last Admin: 03/21/17 09:21 Dose: 600 mg Diphenhydramine HCl (Benadryl -) 50 mg PO HS PRN PRN Reason: INSOMNIA Last Admin: 03/20/17 20:57 Dose: 50 mg Ferrous Sulfate (Feosol -) 325 mg PO BIDWM [facility] Last Admin: 03/21/17 09:20 Dose: 325 mg Doxycycline Hyclate 100 mg/ (Dextrose) 100 mls @ 50 mls/hr IVPB BID [facility] Last Admin: 03/21/17 09:20 Dose: 50 mls/hr Lamivudine (Epivir -) 150 mg PO DAILY [facility] Last Admin: 03/21/17 09:22 Dose: 150 mg Methylprednisolone Sodium Succinate (Solu-Medrol -) 40 mg IVPB BID [facility] Last Admin: 03/21/17 09:23 Dose: 40 mg Nystatin (Nystatin Oral Suspension -) 500,000 units PO Q6HPO [facility] Last Admin: 03/21/17 06:37 Dose: 500,000 units Olanzapine (Zyprexa -) 5 mg PO HS [facility] Last Admin: 03/20/17 21:20 Dose: Not Given Ritonavir (Norvir -) 100 mg PO BID [facility] Last Admin: 03/21/17 09:21 Dose: 100 mg - Objective Vital Signs: Vital Signs Temperature 99.5 F 03/21/17 06:00 Pulse Rate 90 03/21/17 06:00 Respiratory Rate 20 03/21/17 06:00 Blood Pressure 121/62 03/21/17 06:00 O2 Sat by Pulse Oximetry (%) 93 L 03/20/17 21:00 Constitutional: Yes: Thin HENT: Yes: Thrush Neck: Yes: WNL, Supple Cardiovascular: Yes: Regular Rate and Rhythm, S1, S2 Respiratory: Yes: WNL, Regular, CTA Bilaterally Gastrointestinal: Yes: WNL, Normal Bowel Sounds, Soft. No: Tenderness Edema: No Labs: CBC, BMP 03/21/17 05:38 03/21/17 05:38 INR, PTT INR 0.93 (0.82-1.09) 03/19/17 20:44 Assessment/Plan Laboratory Tests 03/21/17 03/21/17 03/21/17 05:38 05:38 05:38 WBC 13.8 H Hgb 11.1 Hct 32.7 Plt Count 154 BUN 48 H Creatinine 2.8 H HIV-1 RNA Quant Pending Assessment 56 year old female AIDS by T cells but last undectable viral load months ago Says taking her meds Coinfected Hep C but treated. No recent appts clinic. Now febrile Has nodular patchy infiltrates per CT scan This could be bacterial PNA but agree Mycobacteria has to be considered though neg PPD by history. Her T cells are low so definate risk for TB. Coccidiomycosis unlikely given never traveled to [place] and does not look like PCP Thrush dysphagia ? esophageal. Plan TB work up as ordered Ceftriaxone 1 gram daily Sputum for AFB fungal and routine cultures T cells PCR Quant gold Contact [facility] Pooja Matos MD
--- NOTE | 2017-03-21 11:39 | PN ---
Physical Exam: SUBJECTIVE: Patient seen and examined at bed side this morning. She mentions her breathing has improved. Cough has improved. Has soreness in her stomach attributes to her coughing vigorously. Denies chest pain, palpitations, nausea, vomiting, chills, rigors or sweating. Overnight had a temp of 100.1 F. No other acute events. OBJECTIVE: Vital Signs Period Temp Pulse Resp BP Sys/Hoyos Pulse Ox Last 24 Hr 99.5 F-102 F 90-103 18-20 109-125/62-74 93 GENERAL: AA female sitting comfortably in bed, awake, alert, and fully oriented , in no acute distress. HEAD: Normal with no signs of trauma. EYES: EOM intact, muddly sclera, no pallor. ENT: Ears normal, moist mucous membranes, whitish layer on the tongue non scrappable; multiple warty growth in the buccal of the mouth, no active bleeding. NECK: Trachea midline, full range of motion, supple, submental LN. LUNGS: Breath sounds equal, scattered rhonchi and wheezes, no crackles, no accessory muscle use. HEART: Regular rate and rhythm, S1, S2 without murmur, rub or gallop. ABDOMEN: Soft, diffuse tenderness, nondistended, normoactive bowel sounds, no guarding, no rebound, no hepatosplenomegaly, no masses. EXTREMITIES: 2+ pulses, warm, well-perfused, no edema. NEUROLOGICAL: Bulk/Tone normal; No facial droop, Cranial nerves II through XII grossly intact, power 5/5 in all extremities. Normal speech, gait not observed. PSYCH: Normal mood, normal affect. SKIN: Warm, dry, normal turgor, no rashes or lesions noted Laboratory Results - last 24 hr 03/20/17 03/20/17 03/20/17 11:00 11:00 13:30 WBC RBC Hgb Hct MCV MCHC RDW Plt Count MPV Neutrophils % 95.0 H D Lymphocytes % Monocytes % 1.0 L D Eosinophils % Basophils % Band Neutrophils 3.0 D Metamyelocytes 1 Differential Comment Manual diff done Platelet Estimate Adequate Sodium 141 Potassium 6.2 H* Chloride 108 H Carbon Dioxide 21 Anion Gap 12 BUN 40 H Creatinine 3.0 H Random Glucose 187 H D Calcium 8.4 L Urine Color Urine Appearance Urine pH Ur Specific Joffre Urine Protein Urine Glucose (UA) Urine Ketones Urine Blood Urine Nitrite Urine Bilirubin Urine Urobilinogen Ur Leukocyte Esterase Urine RBC Urine WBC Ur Epithelial Cells Urine Mucus Ur Random Sodium Cancelled Ur Random Potassium Cancelled Ur Random Chloride Cancelled Urine Creatinine 03/20/17 03/20/17 03/20/17 13:30 13:30 15:00 WBC RBC Hgb Hct MCV MCHC RDW Plt Count MPV Neutrophils % Lymphocytes % Monocytes % Eosinophils % Basophils % Band Neutrophils Metamyelocytes Differential Comment Platelet Estimate Sodium Potassium Cancelled Chloride Carbon Dioxide Anion Gap BUN Creatinine Random Glucose Calcium Urine Color Ltyellow Urine Appearance Clear Urine pH 7.0 Ur Specific Joffre 1.015 Urine Protein 2+ H Urine Glucose (UA) Negative Urine Ketones Negative Urine Blood Negative Urine Nitrite Negative Urine Bilirubin Negative Urine Urobilinogen Negative Ur Leukocyte Esterase Negative Urine RBC 1 Urine WBC 1 Ur Epithelial Cells Rare Urine Mucus Rare Ur Random Sodium 102 Ur Random Potassium 32.2 Ur Random Chloride 102 Urine Creatinine 46.3 03/20/17 03/21/17 03/21/17 18:40 05:38 05:38 WBC 13.8 H RBC 3.88 Hgb 11.1 Hct 32.7 MCV 84.4 MCHC 33.9 RDW 16.3 H Plt Count 154 MPV 8.8 Neutrophils % 90.9 H Lymphocytes % 3.2 L D Monocytes % 5.8 D Eosinophils % 0.0 Basophils % 0.1 Band Neutrophils Metamyelocytes Differential Comment Platelet Estimate Sodium 142 Potassium 4.7 D 4.5 Chloride 109 H Carbon Dioxide 20 L Anion Gap 13 BUN 48 H Creatinine 2.8 H Random Glucose 122 H D Calcium 7.7 L Urine Color Urine Appearance Urine pH Ur Specific Joffre Urine Protein Urine Glucose (UA) Urine Ketones Urine Blood Urine Nitrite Urine Bilirubin Urine Urobilinogen Ur Leukocyte Esterase Urine RBC Urine WBC Ur Epithelial Cells Urine Mucus Ur Random Sodium Ur Random Potassium Ur Random Chloride Urine Creatinine Active Medications Generic Name Dose Route Start Last Admin Trade Name Freq PRN Reason Stop Dose Admin Abacavir Sulfate 300 mg 03/20/17 10:00 03/21/17 09:22 Ziagen - PO 300 mg DAILY [facility] Administration Acetaminophen 650 mg 03/20/17 02:10 03/20/17 20:58 Tylenol - PO 650 mg Q4H PRN Administration FEVER OR PAIN Albuterol Sulfate 2 puff 03/20/17 02:08 Ventolin Hfa Inhaler - IH Q4H PRN ASTHMA Albuterol/Ipratropium 1 amp 03/20/17 06:00 03/21/17 06:21 Duoneb - NEB 1 amp QIDR PALOMA Administration Albuterol/Ipratropium 1 amp 03/20/17 11:35 Duoneb - NEB Q6H PRN SHORTNESS OF BREATH Amlodipine Besylate 10 mg 03/20/17 10:00 03/21/17 09:21 Norvasc - PO 10 mg DAILY [facility] Administration Atovaquone 1,500 mg 03/20/17 08:00 03/21/17 09:20 Mepron - PO 1,500 mg DAILY@0800 [facility]OMA Administration Budesonide/Formoterol Fumarate 1 puff 03/20/17 11:45 03/21/17 09:23 Symbicort 160/4.5mcg - IH 1 puff BID [facility]OMA Administration Ceftriaxone Sodium 1 gm 03/20/17 10:00 03/21/17 11:20 Rocephin 1gm Ivpb (Pre-Docked) IVPB 1 gm DAILY [facility] Administration Darunavir 600 mg 03/20/17 10:00 03/21/17 09:21 Prezista - PO 600 mg BID [facility]OMA Administration Diphenhydramine HCl 50 mg 03/20/17 02:10 03/20/17 20:57 Benadryl - PO 50 mg HS PRN Administration INSOMNIA Ferrous Sulfate 325 mg 03/20/17 08:00 03/21/17 09:20 Feosol - PO 325 mg BIDWM [facility]OMA Administration Lamivudine 150 mg 03/20/17 10:00 03/21/17 09:22 Epivir - PO 150 mg DAILY [facility] Administration Methylprednisolone Sodium Succinate 40 mg 03/20/17 22:00 03/21/17 09:23 Solu-Medrol - IVPB 40 mg BID [facility]OMA Administration Nystatin 500,000 units 03/21/17 00:00 03/21/17 11:20 Nystatin Oral Suspension - PO 500,000 units Q6HPO [facility] Administration Olanzapine 5 mg 03/20/17 02:45 03/20/17 21:20 Zyprexa - PO Not Given HS [facility]OMA Ritonavir 100 mg 03/20/17 10:00 03/21/17 09:21 Norvir - PO 100 mg BID [facility]OMA Administration 03/20/17 Renal ultrasound: Mild left hydronephrosis. The prevoid volume of the urinary bladder equals 149 cc. The post void residual equals 1 cc. Both right and left ureteral jets identified. No bladder masses seen. The pelvic organs are not well imaged but appears the uterus measures 4.2 x 2.0 x 3.6 cm with an endometrial dimension of 0.7 cm. Left ovary is not identified. Right ovary measures 2.0 x 1.2 x 1.4 cm 03/19/17 CT Chest: There is a 2 cm nodular and patchy consolidation left lingula There is no mediastinal, axillary or hilar lymphadenopathy. There is no thoracic aortic aneurysm. There are no pulmonary nodules or masses. There is no pericardial or pleural effusion. No adrenal masses are seen. There is significant scoliosis ASSESSMENT/PLAN: 56 year old female with AIDS, asthma, COPD, CKD, drug abuse (Cocaine/heroin abuse 2 weeks ago), Hep C, sent over from [facility] due with low grade fever and sob. # Sepsis secondary to Left lower lobe pneumonia However, considering the last CD4 count 100 (2015), would like to R/o opportunistic infections like PCP pneumonia, TB Chest CT showed 2cm nodule and patchy consolidation of left lingula. Admitted in Tele Leukocytosis 19.4---->13.8 today repeat is pending IV Ceftriaxone 1gm Daily Atovaquone (home meds) 1000mg PO Daily, Bactrim not given due to Hyperkalemia AFB smear Day 2 Legionella negative Blood cultures negative; Gram stain pending; Respiratory isolation for precautions ID consult appreciated # AIDS CD4 count in 2016-100, CD4/CD8/CD3 ratio pending HIV RNA PCR pending Continue home medication: Ritonavir 100mg PO BID; Lamivudine 150mg PO Daily; Darunavir 600mg PO BID Medical release form to be sent to [facility] and will get the medical records R/O opportunistic infections: Histoplasma Ag Urine, Quantiferon gold Called [facility], faxed the medical release form, waiting to get the medical records from them. # Left hydronephrosis R/O kidney stones/tumor-CT abdomen/Pelvis report pending. # COPD exacerbation- Improving Saturation normal at RA IV Solu-medrol 40mg IV BID Likely aggravated by Pneumonia Continue Symbicort, Albuterol Inhalers # Drug abuse (Cocaine/heroin abuse 2 weeks ago) Counseling[place] [facility] [place] is medically cleared # Hyperkalemia with EKG changes- Resolved. Was treated with IV Insulin, Dextrose and Calcium gluconate. No changes noted today. # Buccal [place] lesions: Patient says she had these warty like growths since 2 years, painless, no active bleeding. # CHRISTOPHER with CKD Creatinine 2.8, baseline (2.4 03/18/17) Avoid nephrotoxic drugs # Dysphagia Patient mentions something sticking in her throat. Swallow evaluation was done today- Recommendations: Soft diet, thin liquids Modified barium swallow ordered for tomorrow at 1pm. Could be due to candidiasis? if it still persists would consider endoscopy. # Hepatitis C # Depression Continue Olanzapine 5mg PO HS # FEN Not on IV fluids Electrolytes to be repeated tomorrow Regular diet # Prophylaxis For DVT: Heparin 5000 IU sq TID For GI: Not indicated # Code Status: Full Code # Dispo: Admitted in Tele. Once medically stable, plan is to send to [facility] Illness, Investigation and Plan of care explained to the patient. She verbalized understanding. Case seen and discussed with Dr. Castillo. Visit type - Emergency Visit Emergency Visit: Yes ED Registration Date: 03/19/17 Care time: The patient presented to the Emergency Department on the above date and was hospitalized for further evaluation of their emergent condition. - New Patient This patient is new to me today: Yes Date on this admission: 03/21/17 - Critical Care Critical Care patient: No - Discharge Referral Referred to [facility] No
--- NOTE | 2017-03-21 11:43 | MSN ---
Progress Note (short form) - Note Progress Note: Subjective: Patient seen and examined at bed side this morning. States that she feels well and has less shortness of breath. Patient complains of sore throat and difficulty swallowing. She feels like she has something stuck in her throat although her appetite has been normal. Overnight her nurse reported that she experienced diarrhea due to the kayexalate. Objective: Vital Signs Period Temp Pulse Resp BP Sys/Hoyos Pulse Ox Last 24 Hr 99.5 F-102 F 90-103 18-20 109-125/62-74 93 General: Thin, petite female, alert and orientated x3 Head: normocephalic, atraumatic Eyes: EOM intact; scleral icterus present ENT: Elevated, beige buccal lesions clustered mostly on left upper oral mucosa with a few lesions on right mucosa; tongue with whitish/yellow plaque Neck: Supple Heart: Regular rate and rhythm with normal S1 and S2 Lungs: Breath sounds decreased lower left lobe Abdomen: Soft and diffusely tender; normoactive bowel sounds; no guarding MSK: Normal motion of all joints. 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 Extremities: 2+ pulses; no edema; warm, well-perfused. Neurological: No facial droop. 5/5 muscle strength in extremities. CN II-XII intact; no tongue deviation and midline uvula. 2/4 reflexes at C7; L4; S1 bilaterally. Psychiatric: Appropriate mood and affect. Not depressed. Laboratory Results - last 24 hr 03/20/17 03/20/17 03/20/17 13:30 13:30 13:30 WBC RBC Hgb Hct MCV MCHC RDW Plt Count MPV Neutrophils % Lymphocytes % Monocytes % Eosinophils % Basophils % Sodium Potassium Chloride Carbon Dioxide Anion Gap BUN Creatinine Random Glucose Calcium Urine Color Ltyellow Urine Appearance Clear Urine pH 7.0 Ur Specific Juliette 1.015 Urine Protein 2+ H Urine Glucose (UA) Negative Urine Ketones Negative Urine Blood Negative Urine Nitrite Negative Urine Bilirubin Negative Urine Urobilinogen Negative Ur Leukocyte Esterase Negative Urine RBC 1 Urine WBC 1 Ur Epithelial Cells Rare Urine Mucus Rare Ur Random Sodium Cancelled 102 Ur Random Potassium Cancelled 32.2 Ur Random Chloride Cancelled 102 Urine Creatinine 46.3 03/20/17 03/20/17 03/21/17 15:00 18:40 05:38 WBC 13.8 H RBC 3.88 Hgb 11.1 Hct 32.7 MCV 84.4 MCHC 33.9 RDW 16.3 H Plt Count 154 MPV 8.8 Neutrophils % 90.9 H Lymphocytes % 3.2 L D Monocytes % 5.8 D Eosinophils % 0.0 Basophils % 0.1 Sodium Potassium Cancelled 4.7 D Chloride Carbon Dioxide Anion Gap BUN Creatinine Random Glucose Calcium Urine Color Urine Appearance Urine pH Ur Specific Juliette Urine Protein Urine Glucose (UA) Urine Ketones Urine Blood Urine Nitrite Urine Bilirubin Urine Urobilinogen Ur Leukocyte Esterase Urine RBC Urine WBC Ur Epithelial Cells Urine Mucus Ur Random Sodium Ur Random Potassium Ur Random Chloride Urine Creatinine 03/21/17 05:38 WBC RBC Hgb Hct MCV MCHC RDW Plt Count MPV Neutrophils % Lymphocytes % Monocytes % Eosinophils % Basophils % Sodium 142 Potassium 4.5 Chloride 109 H Carbon Dioxide 20 L Anion Gap 13 BUN 48 H Creatinine 2.8 H Random Glucose 122 H D Calcium 7.7 L Urine Color Urine Appearance Urine pH Ur Specific Juliette Urine Protein Urine Glucose (UA) Urine Ketones Urine Blood Urine Nitrite Urine Bilirubin Urine Urobilinogen Ur Leukocyte Esterase Urine RBC Urine WBC Ur Epithelial Cells Urine Mucus Ur Random Sodium Ur Random Potassium Ur Random Chloride Urine Creatinine Current Medications Generic Name Dose Route Start Last Admin Trade Name Freq PRN Reason Stop Dose Admin Abacavir Sulfate 300 mg 03/20/17 10:00 03/21/17 09:22 Ziagen - PO 300 mg DAILY PALOMA Administration Acetaminophen 650 mg 03/20/17 02:10 03/20/17 20:58 Tylenol - PO 650 mg Q4H PRN Administration FEVER OR PAIN Albuterol Sulfate 2 puff 03/20/17 02:08 Ventolin Hfa Inhaler - IH Q4H PRN ASTHMA Albuterol/Ipratropium 1 amp 03/20/17 06:00 03/21/17 06:21 Duoneb - NEB 1 amp QIDR PALOMA Administration Albuterol/Ipratropium 1 amp 03/20/17 11:35 Duoneb - NEB Q6H PRN SHORTNESS OF BREATH Amlodipine Besylate 10 mg 03/20/17 10:00 03/21/17 09:21 Norvasc - PO 10 mg DAILY PALOMA Administration Atovaquone 1,500 mg 03/20/17 08:00 03/21/17 09:20 Mepron - PO 1,500 mg DAILY@0800 PALOMA Administration Budesonide/Formoterol Fumarate 1 puff 03/20/17 11:45 03/21/17 09:23 Symbicort 160/4.5mcg - IH 1 puff BID PALOMA Administration Ceftriaxone Sodium 1 gm 03/20/17 10:00 03/21/17 11:20 Rocephin 1gm Ivpb (Pre-Docked) IVPB 1 gm DAILY PALOMA Administration Darunavir 600 mg 03/20/17 10:00 03/21/17 09:21 Prezista - PO 600 mg BID PALOMA Administration Diphenhydramine HCl 50 mg 03/20/17 02:10 03/20/17 20:57 Benadryl - PO 50 mg HS PRN Administration INSOMNIA Ferrous Sulfate 325 mg 03/20/17 08:00 03/21/17 09:20 Feosol - PO 325 mg BIDWM PALOMA Administration Fluconazole 100 mg 03/22/17 10:00 Diflucan - PO DAILY PALOMA Heparin Sodium (Porcine) 5,000 unit 03/21/17 14:00 Heparin - SQ TID PALOMA Lamivudine 150 mg 03/20/17 10:00 03/21/17 09:22 Epivir - PO 150 mg DAILY PALOMA Administration Methylprednisolone Sodium Succinate 40 mg 03/20/17 22:00 03/21/17 09:23 Solu-Medrol - IVPB 40 mg BID PALOMA Administration Olanzapine 5 mg 03/20/17 02:45 03/20/17 21:20 Zyprexa - PO Not Given HS PALOMA Ritonavir 100 mg 03/20/17 10:00 03/21/17 09:21 Norvir - PO 100 mg BID PALOMA Administration Assessment/Plan: Patient is a 56 yr old female with history of asthma, COPD, AIDS, anemia, HTN, HepC, 1 seizure episode, substance abuse, and depression who was admitted from the ER with shortness of breath, fever, and cough escalating over the past 2 weeks. 1.) Sepsis; pneumonia * Ceftriaxone and doxycycline-treatment for CAP * Blood culture * Sputum for PCP smear * AFB stain-day 2 * Rule out cryptoccous; histo; legionella * 2 cm nodule on CXR with LLL patchy consolidation * Atovaquone for PCP prophylaxis 2.) COPD exacerbation * Methylprednisone 40 mg IV BID * PRN Duoneb * Symbicort 3.) Buccal lesions * ID consult 4.) Dysphagia * Evaluate for delmi esophagitis if no improvement esophageal barium study or upper endoscopy 5.) CKD * Creatinine returned to baseline of 2.5-3; continue to monitor 6.) AIDS * Last known CD4 about 100 cells/microliter (2015) * Continue ART 7.) Hyperkalemia * potassium within normal range(4.5); repeat electrolytes 8.) Depression * Continue olazapine 9.) Substance abuse * Enrolled at [facility] 10.) Prophylaxis * DVT * GI- not indicated 11.) Dispo * Return to [facility] for rehab
--- NOTE | 2017-03-21 11:50 | PN ---
Teaching Attending Note Name of Resident: Josey Hill ATTENDING PHYSICIAN STATEMENT I saw and evaluated the patient. I reviewed the resident's note and discussed the case with the resident. I agree with the resident's findings and plan as documented. SUBJECTIVE: no abd pain , has no SOB . cough continues. OBJECTIVE: NAD , AAOx3. HEENT: MMM, growth of bucal mucosa , some of which is slightly whitish . clear oropharynx. Lungs: course breath sounds , prolonged exp phase, rales adn scattered rales Abd : soft, ND, TTP in All quadrants. not able to evaluate hepatomegaly due to voluntary guarding . no rebound tenderness or involuntary guarding . NL bs Ext : no edema dry scaly skin on feet . no rash on skin except fro scabbing acne like lesions on upper back Assessment/Plan: 56 y/o lady with h/o AIDS, COPD ,anemia , HTN, Hep C , h/o noncompliance and substance abuse ( heroin and cocaine last used 2 weeks ago ) , she presented form [facility] with SOB and productive cough with fevers for 2 weeks . she was found to have LLL PNA and COPD exacerbation 1- Sepsis 2/2 LLL PNA: likely community acquired. but due to her immuno- compromised status other opportunistic infections need to be r/o improved leukocytosis and improved symptoms , but cont to have fever - cont CTX and doxy - follow blood cx and sputum cx. - PCP smear - follow up on mycoplasma abs and legionella /strep urine Ag - histoplasma , cryptococcus , and coccidoes as she has small nodules in her lungs - Sputum for AFB x2 sent -Appreciate ID help 2- Acute COPD exacerbation 2/2 PNA : improved - cont Steroids with rapid taper - Duo-NEbs - cont symbicort 3- AIDS: CD4 count a year ago of 100 per pt. SHe follows with HIV Doc in [place] . - CD4 pending - cont her meds 4- Substance abuse : last use 2 weeks ago. Monitor for any signs 5- Buccal mucosa lesions : it does not appear like thrush. ? warts 6- Dysphagia : speech eval if cont to have that , will need EGD 7- CKD : Cr at base line US with mild left hydronephrosis. check CT of abd to r/o obstruction with lymphadenopathy , tumors, stones or other etiologies 8- hyperkalemia with EKG changes resolved tele with sinus tachy espisodes 9- DVT pX : can start heparin since hyperkalemia has resolved HLOC
[2017-03-21] MEDS: HEPARIN NA (PORCINE) 5,000 UNITS/ML 1ML VIAL SQ SCH ×2 (14:01→21:35)
[2017-03-21] MEDS: OLANZapine 5 MG TABLET PO SCH (21:35)
[2017-03-21] MEDS: diphenhydrAMINE HCL 25 MG CAPSULE (FP) PO PRN (21:35)
[2017-03-22] MEDS: ALBUTEROL SO4 2.5/IPRATROPIUM 0.5 INH SOL 3 ML VIAL.NEB. NEB SCH ×5 (00:44→23:35)
[2017-03-22] MEDS: HEPARIN NA (PORCINE) 5,000 UNITS/ML 1ML VIAL SQ SCH ×3 (06:03→21:58)
[2017-03-22 06:51] LABS: BASOPHIL 0.6 % (0-2.0); MCH 29.1 pg (25.7-33.7); MCHC 34.6 g/dl (32.0-36.0); MEAN CELL VOLUME 84.2 fl (80-96); MEAN PLT VOLUME 8.9 fl (7.5-11.1); NEUTROPHILS 90.2 % (42.8-82.8); PLATELET COUNT 171 K/MM3 (134-434); RDW 16.4 % (11.6-15.6); WHITE BLOOD COUNT 11.1 K/mm3 (4.0-10.0)
[2017-03-22 07:22] LABS: CALCIUM 7.5 mg/dL (8.5-10.1)
[2017-03-22 07:25] LABS: COCKROFT - GAULT 14.858; CREATININE 3.1 mg/dL (0.55-1.02)
[2017-03-22] MEDS ORDERED: PT OWN MED DRAWER 7, Y5N ONE ×2 (09:07→21:51)
[2017-03-22] MEDS: amLODIPine BESYLATE 10 MG TABLET (FP) PO SCH (09:17)
[2017-03-22] MEDS: methylPREDNISolone NA SUCC 40 MG/1 ML VIAL IVPB SCH (09:17)
[2017-03-22] MEDS: FERROUS SO4 325 MG TABLET (FP) PO SCH ×2 (09:17→17:17)
[2017-03-22] MEDS: ATOVAQUONE 750 MG/5 ML (UNIT-DOSE PACKAGING) PO SCH (09:18)
[2017-03-22] MEDS: FLUCONAZOLE 100 MG TABLET (UD) PO SCH (09:18)
[2017-03-22] MEDS: cefTRIAXone 1 GM/50 ML BAG (PRE-DOCKED) IVPB SCH (09:18)
[2017-03-22] MEDS: lamiVUDine 150 MG TABLET PO SCH (09:19)
[2017-03-22] MEDS: DARUNAVIR ETHANOLATE 600 MG TAB PO SCH ×2 (09:19→22:18)
[2017-03-22] MEDS: RITONAVIR 100 MG TABLET PO SCH ×2 (09:19→21:56)
[2017-03-22] MEDS: ABACAVIR SULFATE 300 MG TABLET PO SCH (09:19)
--- NOTE | 2017-03-22 12:31 | PN ---
Physical Exam: SUBJECTIVE: Patient seen and examined at bed side this morning. Says the breathing has gotten better. Still has the feeling of something stuck in her throat. Anxious about the throat sensation. Otherwise denies chest pain, palpitations, nausea, vomiting, chills, rigors or sweating. Overnight had a temp of 99.5 F. No other acute events. OBJECTIVE: Vital Signs Period Temp Pulse Resp BP Sys/Hoyos Pulse Ox Last 24 Hr 99.1 F-99.5 F 83-99 18-18 115-133/83-89 94-96 GENERAL: AA female sitting comfortably in bed, awake, alert, and fully oriented , in no acute distress. HEAD: Normal with no signs of trauma. EYES: EOM intact, muddly sclera, no pallor. ENT: Ears normal, moist mucous membranes, whitish layer on the tongue non scrappable; multiple warty growth in the buccal of the mouth, no active bleeding. NECK: Trachea midline, full range of motion, supple, submental LN. LUNGS: Breath sounds equal, scattered rhonchi and wheezes, no crackles, no accessory muscle use. HEART: Regular rate and rhythm, S1, S2 without murmur, rub or gallop. ABDOMEN: Soft, diffuse tenderness, nondistended, normoactive bowel sounds, no guarding, no rebound, no hepatosplenomegaly, no masses. EXTREMITIES: 2+ pulses, warm, well-perfused, no edema. NEUROLOGICAL: Bulk/Tone normal; No facial droop, Cranial nerves II through XII grossly intact, power 5/5 in all extremities. Normal speech, gait not observed. PSYCH: Normal mood, normal affect. SKIN: Warm, dry, normal turgor, no rashes or lesions noted Laboratory Results - last 24 hr 03/21/17 03/22/17 03/22/17 17:45 05:35 05:35 WBC 11.1 H RBC 3.87 Hgb 11.3 Hct 32.6 MCV 84.2 MCHC 34.6 RDW 16.4 H Plt Count 171 MPV 8.9 Neutrophils % 90.2 H Lymphocytes % 6.7 L D Monocytes % 2.5 L Eosinophils % 0.0 Basophils % 0.6 D Sodium 142 Potassium 3.9 4.1 Chloride 110 H Carbon Dioxide 18 L Anion Gap 14 BUN 68 H D Creatinine 3.1 H Random Glucose 163 H D Calcium 7.5 L Active Medications Generic Name Dose Route Start Last Admin Trade Name Freq PRN Reason Stop Dose Admin Abacavir Sulfate 300 mg 03/20/17 10:00 03/22/17 09:19 Ziagen - PO 300 mg DAILY PALOMA Administration Acetaminophen 650 mg 03/20/17 02:10 03/20/17 20:58 Tylenol - PO 650 mg Q4H PRN Administration FEVER OR PAIN Albuterol Sulfate 2 puff 03/20/17 02:08 Ventolin Hfa Inhaler - IH Q4H PRN ASTHMA Albuterol/Ipratropium 1 amp 03/20/17 06:00 03/22/17 11:10 Duoneb - NEB Not Given QIDR PALOMA Albuterol/Ipratropium 1 amp 03/20/17 11:35 Duoneb - NEB Q6H PRN SHORTNESS OF BREATH Amlodipine Besylate 10 mg 03/20/17 10:00 03/22/17 09:17 Norvasc - PO 10 mg DAILY PALOMA Administration Atovaquone 1,500 mg 03/20/17 08:00 03/22/17 09:18 Mepron - PO 1,500 mg DAILY@0800 PALOMA Administration Budesonide/Formoterol Fumarate 1 puff 03/20/17 11:45 03/21/17 21:36 Symbicort 160/4.5mcg - IH 1 puff BID PALOMA Administration Ceftriaxone Sodium 1 gm 03/20/17 10:00 03/22/17 09:18 Rocephin 1gm Ivpb (Pre-Docked) IVPB 1 gm DAILY PALOMA Administration Darunavir 600 mg 03/20/17 10:00 03/22/17 09:19 Prezista - PO 600 mg BID PALOMA Administration Diphenhydramine HCl 50 mg 03/20/17 02:10 03/21/17 21:35 Benadryl - PO 50 mg HS PRN Administration INSOMNIA Ferrous Sulfate 325 mg 03/20/17 08:00 03/22/17 09:17 Feosol - PO 325 mg BIDWM PALOMA Administration Fluconazole 100 mg 03/22/17 10:00 03/22/17 09:18 Diflucan - PO 100 mg DAILY PALOMA Administration Heparin Sodium (Porcine) 5,000 unit 03/21/17 14:00 03/22/17 06:03 Heparin - SQ Not Given TID PALOMA Lamivudine 150 mg 03/20/17 10:00 03/22/17 09:19 Epivir - PO 150 mg DAILY PALOMA Administration Methylprednisolone Sodium Succinate 40 mg 03/23/17 10:00 Solu-Medrol - IVPB DAILY PALOMA Olanzapine 5 mg 03/20/17 02:45 03/21/17 21:35 Zyprexa - PO 5 mg HS PALOMA Administration Ritonavir 100 mg 03/20/17 10:00 03/22/17 09:19 Norvir - PO 100 mg BID PALOMA Administration ASSESSMENT/PLAN: 56 year old female with AIDS, asthma, COPD, CKD, drug abuse (Cocaine/heroin abuse 2 weeks ago), Hep C, sent over from [facility] due with low grade fever and sob. # Sepsis secondary to Left lower lobe pneumonia However, considering the last CD4 count 100 (2015), would like to R/o opportunistic infections like PCP pneumonia, TB Chest CT showed 2cm nodule and patchy consolidation of left lingula. Admitted in Tele Leukocytosis 13.8---> 11.1 today repeat is pending IV Ceftriaxone 1gm Daily; Atovaquone (home meds) 1000mg PO Daily, Bactrim not given due to Hyperkalemia F/up to be done on mycoplasma abs Serology ordered for Histoplasma , cryptococcus , and coccidiosis AFB smear Day 3 Legionella negative; Blood cultures negative; Gram stain pending; Respiratory isolation for precautions until AFB x 3 negative # Diarrhea: C diff Ag positive with Neg toxin. Started on Flagyl considering patients immunocompromised state. Plan is to discontinue it if C. diff PCR is negative. # AIDS CD4 count in 2016-100, CD4/CD8/CD3 ratio pending HIV RNA PCR pending Continue home medication: Ritonavir 100mg PO BID; Lamivudine 150mg PO Daily; Darunavir 600mg PO BID Medical release sent to [facility], waiting to get the medical records R/O opportunistic infections: Histoplasma Ag Urine, Quantiferon gold # Left hydronephrosis R/O kidney stones/tumor-CT abdomen/Pelvis no hydronephrosis # COPD exacerbation- Improving; Likely aggravated by Pneumonia Saturation normal at RA Changed IV to PO Solu-medrol 40mg Daily Continue Symbicort, Albuterol Inhalers # Avascular necrosis of left femoral head with moderate degneration of left hip joint MRI/ Ortho consult # Drug abuse (Cocaine/heroin abuse 2 weeks ago) Counseling, send to [facility] for rehab once patient is medically cleared # Hyperkalemia with EKG changes- Resolved. # Buccal muscosa lesions: Patient says she had these warty like growths since 2 years, painless, no active bleeding. Whitish layer in the tongue- less likely fungal. # CHRISTOPHER with CKD Creatinine 2.8 ---> 3.1, baseline (2.4 03/18/17) Avoid nephrotoxic drugs # Dysphagia Patient mentions something sticking in her throat. Swallow evaluation was done today- Recommendations: Soft diet, thin liquids Modified barium swallow to be done tomorrow- difficult to take the patient for the test since she is in isolation precaution. Could be due to candidiasis? if it still persists would consider endoscopy. Continue Fluconazole. # Hepatitis C # Depression Continue Olanzapine 5mg PO HS # FEN Not on IV fluids Electrolytes to be repeated tomorrow Regular diet # Prophylaxis For DVT: Heparin 5000 IU sq TID For GI: Not indicated # Code Status: Full Code # Dispo: Admitted in Tele. Once medically stable, plan is to send to [facility] Illness, Investigation and Plan of care explained to the patient. She verbalized understanding. Case seen and discussed with Dr. Castillo. Visit type - Emergency Visit Emergency Visit: Yes ED Registration Date: 03/19/17 Care time: The patient presented to the Emergency Department on the above date and was hospitalized for further evaluation of their emergent condition. - New Patient This patient is new to me today: No - Critical Care Critical Care patient: No - Discharge Referral Referred to [facility] Med P.C.: No
[2017-03-22] MEDS: BUDESONIDE/FORMETEROL FUMARATE 160/4.5 mcg INHALER IH SCH ×2 (12:43→22:18)
--- NOTE | 2017-03-22 13:04 | MSN ---
Progress Note (short form) - Note Progress Note: Subjective: Patient seen and examined at bedside this morning. Patient is agitated and continues to complain of diarrhea and difficulties swallowing. Patient states that she is no longer short of breath. Overnight the patient experienced repeated diarrhea. Objective: Vital Signs Period Temp Pulse Resp BP Sys/Hoyos Pulse Ox Last 24 Hr 99.1 F-99.5 F 83-99 18-18 115-133/83-89 94-96 Head: Normocephalic; atraumatic Eyes: EOMI; no scleral icterus ENT: Tongue with whitish plaque; exophytic beige buccal lesions clustered on right and left mucosa Heart: regular rate and rhythm with normal S1 and S2 Lungs: b/l coarse breath sounds; crackles at left lower lung base Abdomen: Normoactive bowel sounds; soft and non-tender Extremities: 2+ pulses; warm and well-perfused Psychiatric: Anxious; alert and orientated x3 Laboratory Results - last 24 hr 03/21/17 03/22/17 03/22/17 17:45 05:35 05:35 WBC 11.1 H RBC 3.87 Hgb 11.3 Hct 32.6 MCV 84.2 MCHC 34.6 RDW 16.4 H Plt Count 171 MPV 8.9 Neutrophils % 90.2 H Lymphocytes % 6.7 L D Monocytes % 2.5 L Eosinophils % 0.0 Basophils % 0.6 D Sodium 142 Potassium 3.9 4.1 Chloride 110 H Carbon Dioxide 18 L Anion Gap 14 BUN 68 H D Creatinine 3.1 H Random Glucose 163 H D Calcium 7.5 L Assessment and Plan: 56 year old female with history of HIV, COPD, asthma, HTN, anemia, HepC, substance abuse, and depression presented to the ER with SOB and fever and was admitted. 1.) Sepsis secondary to pneumonia * Continue ceftriaxone * AFB sputum * Atovaquone for PCP prophylaxis * MICHELLE prep of sputum (look for fungal etiology) 2.) Diarrhea * Check stool for c. diff antigen and culture * Abdominal CT w/o contrast demonstrated jejunal thickening and enteritis 3.) COPD * Methylprednisone tapered to 40 mg qd * Continue symbicort 4.) Dysphasia * Modified barium swallow might required endoscopy * Continue to offer soft easily swallowed foods 5.) Buccal lesions/tongue plaque * Continue fluconazole 6.) CKD * Continue to monitor BUN and creatinine * creatinine 3.1 around baseline of 2.5 6.) AIDS * Continue ART * CD4 and HIV viral load pending 7.) Substance abuse * Return to [facility] 8.) Prophylaxis * DVT- Heparin * PPI-not indicated 9.) FEN * Soft, palatable foods 10.) Dispo * Follow with [facility] clinic regarding AIDS and ART
[2017-03-22] MEDS: ACETAMINOPHEN 325 MG TABLET (FP) PO PRN ×2 (17:17→21:54)
--- NOTE | 2017-03-22 18:13 | PN ---
Teaching Attending Note Name of Resident: Josey Hill ATTENDING PHYSICIAN STATEMENT I saw and evaluated the patient. I reviewed the resident's note and discussed the case with the resident. I agree with the resident's findings and plan as documented. SUBJECTIVE: Denies abd pain or SOB . feels much better . has watery diarrhea now OBJECTIVE: NAD, AAOx3. HEENT: MMM, growth of buccal mucosa. clear oropharynx. Lungs: course breath sounds , rales no wheezes Ext : no edema dry scaly skin on feet . Assessment/Plan: 56 y/o lady with h/o AIDS, COPD ,anemia , HTN, Hep C , h/o noncompliance and substance abuse ( heroin and cocaine last used 2 weeks ago ) , she presented form [facility] with SOB and productive cough with fevers for 2 weeks . she was found to have LLL PNA and COPD exacerbation 1- Sepsis 2/2 LLL PNA: improved . no fever and Leukocytosis decreased - cont CTX . Doxy was d/c by ID - follow blood cx . Sputum cx with nl joan - PCP smear , mycoplasma serology, and legionella Ag were not done - follow up on mycoplasma abs and legionella /strep urine Ag - Histoplasma , cryptococcus , and coccidoes serology ordered - Sputum AFB smear Neg x2 . 3rd sample pending - Appreciate ID help 2- Diarrhea: with positive C diff Ag btu Neg toxin. due to the presence of diarrhea , and the immunocompromised status, will treat with flagyl and send C diff PCR. if PCR Neg, will dc flagyl 3- Acute COPD exacerbation 2/2 PNA : improved - switch to po prednisone once daily - Duo-NEbs - cont symbicort 4- AIDS: - CD4 pending - cont her meds - records requested 5- possible esophageal thrush . cont o have dysphagea and pain - MBS pending . -cont diflucan -if symptoms persist, might need GI eval for EGD 6- possible L femoral head necrosis : obtain MRI and consult Ortho 7- CKD : Cr at base line US with mild left hydronephrosis. CT scan with n o hydro and no masses or enlarged Lymph nodes 8- hyperkalemia with EKG changes resolved no need for tele . 9- DVT pX :heparin HLOC
[2017-03-22] MEDS: diphenhydrAMINE HCL 25 MG CAPSULE (FP) PO PRN (21:53)
[2017-03-22] MEDS: metroNIDAZOLE 250 MG TABLET PO SCH (21:53)
[2017-03-22] MEDS: OLANZapine 5 MG TABLET PO SCH (21:54)
[2017-03-23] MEDS: HEPARIN NA (PORCINE) 5,000 UNITS/ML 1ML VIAL SQ SCH ×3 (05:17→21:40)
[2017-03-23] MEDS: metroNIDAZOLE 250 MG TABLET PO SCH ×3 (05:18→21:37)
[2017-03-23] MEDS: ACETAMINOPHEN 325 MG TABLET (FP) PO PRN ×4 (05:34→22:23)
[2017-03-23] MEDS: ALBUTEROL SO4 2.5/IPRATROPIUM 0.5 INH SOL 3 ML VIAL.NEB. NEB SCH ×2 (06:30→17:01)
[2017-03-23 07:15] LABS: MCH 28.8 pg (25.7-33.7); MCHC 33.7 g/dl (32.0-36.0); MEAN CELL VOLUME 85.4 fl (80-96); MEAN PLT VOLUME 9.1 fl (7.5-11.1); PLATELET COUNT 195 K/MM3 (134-434); RDW 16.3 % (11.6-15.6); WHITE BLOOD COUNT 13.6 K/mm3 (4.0-10.0)
[2017-03-23 07:22] LABS: CALCIUM 8.4 mg/dL (8.5-10.1); COCKROFT - GAULT 15.351
--- NOTE | 2017-03-23 07:47 | PN ---
Physical Exam: SUBJECTIVE: Patient seen and examined at bed side this morning. No acute overnight events. OBJECTIVE: Vital Signs Period Temp Pulse Resp BP Sys/Hoyos Pulse Ox Last 24 Hr 98.8 F-99.8 F 83-100 16-18 119-139/78-90 95-96 GENERAL: AA female sitting comfortably in bed, awake, alert, and fully oriented , in no acute distress. HEAD: Normal with no signs of trauma. EYES: EOM intact, muddly sclera, no pallor. ENT: Ears normal, moist mucous membranes, whitish layer on the tongue non scrappable; multiple warty growth in the buccal of the mouth, no active bleeding. NECK: Trachea midline, full range of motion, supple, submental LN. LUNGS: Breath sounds equal, scattered rhonchi and wheezes, no crackles, no accessory muscle use. HEART: Regular rate and rhythm, S1, S2 without murmur, rub or gallop. ABDOMEN: Soft, diffuse tenderness, nondistended, normoactive bowel sounds, no guarding, no rebound, no hepatosplenomegaly, no masses. EXTREMITIES: 2+ pulses, warm, well-perfused, no edema. NEUROLOGICAL: Bulk/Tone normal; No facial droop, Cranial nerves II through XII grossly intact, power 5/5 in all extremities. Normal speech, gait not observed. PSYCH: Normal mood, normal affect. SKIN: Warm, dry, normal turgor, no rashes or lesions noted Laboratory Results - last 24 hr 03/23/17 03/23/17 05:38 05:38 WBC 13.6 H RBC 4.12 Hgb 11.9 Hct 35.2 MCV 85.4 MCHC 33.7 RDW 16.3 H Plt Count 195 MPV 9.1 Sodium 141 Potassium 4.8 Chloride 111 H Carbon Dioxide 18 L Anion Gap 12 BUN 66 H Creatinine 3.0 H Random Glucose 104 D Calcium 8.4 L Active Medications Generic Name Dose Route Start Last Admin Trade Name Freq PRN Reason Stop Dose Admin Abacavir Sulfate 300 mg 03/20/17 10:00 03/22/17 09:19 Ziagen - PO 300 mg DAILY PALOMA Administration Acetaminophen 650 mg 03/20/17 02:10 03/23/17 05:34 Tylenol - PO 650 mg Q4H PRN Administration FEVER OR PAIN Albuterol Sulfate 2 puff 03/20/17 02:08 Ventolin Hfa Inhaler - IH Q4H PRN ASTHMA Albuterol/Ipratropium 1 amp 03/20/17 06:00 03/23/17 06:30 Duoneb - NEB Not Given QIDR PALOMA Albuterol/Ipratropium 1 amp 03/20/17 11:35 Duoneb - NEB Q6H PRN SHORTNESS OF BREATH Amlodipine Besylate 10 mg 03/20/17 10:00 03/22/17 09:17 Norvasc - PO 10 mg DAILY PALOMA Administration Atovaquone 1,500 mg 03/20/17 08:00 03/22/17 09:18 Mepron - PO 1,500 mg DAILY@0800 PALOMA Administration Budesonide/Formoterol Fumarate 1 puff 03/20/17 11:45 03/22/17 22:18 Symbicort 160/4.5mcg - IH 1 puff BID PALOMA Administration Ceftriaxone Sodium 1 gm 03/20/17 10:00 03/22/17 09:18 Rocephin 1gm Ivpb (Pre-Docked) IVPB 1 gm DAILY PALOMA Administration Darunavir 600 mg 03/20/17 10:00 03/22/17 22:18 Prezista - PO 600 mg BID PALOMA Administration Diphenhydramine HCl 50 mg 03/20/17 02:10 03/22/17 21:53 Benadryl - PO 50 mg HS PRN Administration INSOMNIA Ferrous Sulfate 325 mg 03/20/17 08:00 03/22/17 17:17 Feosol - PO 325 mg BIDWM PALOMA Administration Fluconazole 100 mg 03/22/17 10:00 03/22/17 09:18 Diflucan - PO 100 mg DAILY PALOMA Administration Heparin Sodium (Porcine) 5,000 unit 03/21/17 14:00 03/23/17 05:17 Heparin - SQ 5,000 unit TID PALOMA Administration Lamivudine 150 mg 03/20/17 10:00 03/22/17 09:19 Epivir - PO 150 mg DAILY PALOMA Administration Metronidazole 500 mg 03/22/17 22:00 03/23/17 05:18 Flagyl - PO 500 mg TID PALOMA Administration Olanzapine 5 mg 03/20/17 02:45 03/22/17 21:54 Zyprexa - PO 5 mg HS PALOMA Administration Prednisone 40 mg 03/23/17 10:00 Deltasone - PO DAILY [facility] Ritonavir 100 mg 03/20/17 10:00 03/22/17 21:56 Norvir - PO 100 mg BID PALOMA Administration ASSESSMENT/PLAN: 56 year old female with AIDS, asthma, COPD, CKD, drug abuse (Cocaine/heroin abuse 2 weeks ago), Hep C, sent over from [facility] due with low grade fever and sob. # Sepsis secondary to Left lower lobe pneumonia-R/o opportunistic infections like PCP pneumonia, TB Chest CT showed 2cm nodule and patchy consolidation of left lingula. Leukocytosis 11.1--->13.6 could be due to steroid use IV Ceftriaxone 1gm Daily Day 4, to be changed to Ceftin 250mg PO BID x 7 days Atovaquone (home meds) 1000mg PO Daily, Bactrim not given due to Hyperkalemia F/up to be done on mycoplasma abs Serology ordered for Histoplasma , cryptococcus , and coccidiosis AFB smear Day 3-negative, NO respiratory isolation required. Legionella negative; Blood cultures negative; Gram stain pending; # Diarrhea: C diff Ag positive with Neg toxin. Started on Flagyl considering patients immunocompromised state and to continue for 14 days. # AIDS CD4 count in 2016-100, CD4/CD8/CD3 ratio pending HIV RNA PCR pending Continue home medication: Ritonavir 100mg PO BID; Lamivudine 150mg PO Daily; Darunavir 600mg PO BID Medical release sent [facility], waiting to get the medical records # Left hydronephrosis R/O kidney stones/tumor-CT abdomen/Pelvis no hydronephrosis Nephrology consult # COPD exacerbation- Improving; Likely aggravated by Pneumonia Solu-medrol 40mg PO Daily Continue Symbicort, Albuterol Inhalers # Avascular necrosis of left femoral head with moderate degneration of left hip joint MRI/ Ortho consult # Drug abuse (Cocaine/heroin abuse 2 weeks ago) Counseling, Plan is to send to [facility] for rehab once patient is medically cleared # Hyperkalemia with EKG changes- Resolved. # Buccal muscosa lesions: Patient says she had these warty like growths since 2 years, painless, no active bleeding. Whitish layer in the tongue- less likely fungal. # CHRISTOPHER with CKD Creatinine 3.1--->3, baseline (2.4 03/18/17) Avoid nephrotoxic drugs # Dysphagia Patient mentions something sticking in her throat. Swallow evaluation was done- Recommendations: Soft diet, thin liquids Modified barium swallow done today Could be due to candidiasis? if it still persists would consider endoscopy. Continue Fluconazole. # Hepatitis C # Depression Continue Olanzapine 5mg PO HS # FEN Not on IV fluids Electrolytes to be repeated tomorrow Regular diet # Prophylaxis For DVT: Heparin 5000 IU sq TID For GI: Not indicated # Code Status: Full Code # Dispo: Admitted in Tele. Once medically stable, plan is to send to [facility] Illness, Investigation and Plan of care explained to the patient. She verbalized understanding. Case seen and discussed with Dr. Patiño. * Visit type - Emergency Visit Emergency Visit: Yes ED Registration Date: 03/19/17 Care time: The patient presented to the Emergency Department on the above date and was hospitalized for further evaluation of their emergent condition. - New Patient This patient is new to me today: No - Critical Care Critical Care patient: No
[2017-03-23] MEDS ORDERED: PT OWN MED DRAWER 7, Y5N ONE ×4 (08:28→21:29)
[2017-03-23] MEDS: FERROUS SO4 325 MG TABLET (FP) PO SCH ×2 (08:32→18:46)
[2017-03-23] MEDS: ATOVAQUONE 750 MG/5 ML (UNIT-DOSE PACKAGING) PO SCH (09:06)
[2017-03-23] MEDS: FLUCONAZOLE 100 MG TABLET (UD) PO SCH (09:06)
[2017-03-23] MEDS: cefTRIAXone 1 GM/50 ML BAG (PRE-DOCKED) IVPB SCH (09:06)
[2017-03-23] MEDS: ABACAVIR SULFATE 300 MG TABLET PO SCH (09:06)
[2017-03-23] MEDS: DARUNAVIR ETHANOLATE 600 MG TAB PO SCH ×2 (09:06→21:38)
[2017-03-23] MEDS: RITONAVIR 100 MG TABLET PO SCH ×2 (09:06→21:38)
[2017-03-23] MEDS: predniSONE 20 MG TABLET (UD) PO SCH (09:06)
[2017-03-23] MEDS: amLODIPine BESYLATE 10 MG TABLET (FP) PO SCH (09:06)
[2017-03-23] MEDS: lamiVUDine 150 MG TABLET PO SCH (09:07)
[2017-03-23] MEDS ORDERED: methylPREDNISolone NA SUCC 40 MG/1 ML VIAL IVPB SCH (10:00)
--- NOTE | 2017-03-23 10:35 | PN ---
Progress Note, Physician History of Present Illness: Doing well No c/o dyspnea/ cough No Fever/ chills Loose BMs last night, none today - Current Medication List Current Medications: Active Medications Abacavir Sulfate (Ziagen -) 300 mg PO DAILY [facility] Last Admin: 03/23/17 09:06 Dose: 300 mg Acetaminophen (Tylenol -) 650 mg PO Q4H PRN PRN Reason: FEVER OR PAIN Last Admin: 03/23/17 05:34 Dose: 650 mg Albuterol Sulfate (Ventolin Hfa Inhaler -) 2 puff IH Q4H PRN PRN Reason: ASTHMA Albuterol/Ipratropium (Duoneb -) 1 amp NEB QIDR [facility] Last Admin: 03/23/17 06:30 Dose: Not Given Albuterol/Ipratropium (Duoneb -) 1 amp NEB Q6H PRN PRN Reason: SHORTNESS OF BREATH Amlodipine Besylate (Norvasc -) 10 mg PO DAILY [facility] Last Admin: 03/23/17 09:06 Dose: 10 mg Atovaquone (Mepron -) 1,500 mg PO DAILY@0800 [facility] Last Admin: 03/23/17 09:06 Dose: 1,500 mg Budesonide/Formoterol Fumarate (Symbicort 160/4.5mcg -) 1 puff IH BID [facility] Last Admin: 03/22/17 22:18 Dose: 1 puff Ceftriaxone Sodium (Rocephin 1gm Ivpb (Pre-Docked)) 1 gm IVPB DAILY [facility] Last Admin: 03/23/17 09:06 Dose: 1 gm Darunavir (Prezista -) 600 mg PO BID [facility] Last Admin: 03/23/17 09:06 Dose: 600 mg Diphenhydramine HCl (Benadryl -) 50 mg PO HS PRN PRN Reason: INSOMNIA Last Admin: 03/22/17 21:53 Dose: 50 mg Ferrous Sulfate (Feosol -) 325 mg PO BIDWM [facility] Last Admin: 03/23/17 08:32 Dose: 325 mg Fluconazole (Diflucan -) 100 mg PO DAILY [facility] Last Admin: 03/23/17 09:06 Dose: 100 mg Heparin Sodium (Porcine) (Heparin -) 5,000 unit SQ TID [facility] Last Admin: 03/23/17 05:17 Dose: 5,000 unit Lamivudine (Epivir -) 150 mg PO DAILY [facility] Last Admin: 03/23/17 09:07 Dose: 150 mg Metronidazole (Flagyl -) 500 mg PO TID [facility] Last Admin: 03/23/17 05:18 Dose: 500 mg Olanzapine (Zyprexa -) 5 mg PO HS [facility] Last Admin: 03/22/17 21:54 Dose: 5 mg Prednisone (Deltasone -) 40 mg PO DAILY [facility] Last Admin: 03/23/17 09:06 Dose: 40 mg Ritonavir (Norvir -) 100 mg PO BID [facility] Last Admin: 03/23/17 09:06 Dose: 100 mg - Objective Vital Signs: Vital Signs Temperature 98.8 F 03/23/17 06:27 Pulse Rate 97 H 03/23/17 06:27 Respiratory Rate 18 03/23/17 06:27 Blood Pressure 124/89 03/23/17 06:27 O2 Sat by Pulse Oximetry (%) 95 03/22/17 21:00 Constitutional: Yes: No Distress Eyes: Yes: Conjunctiva Clear Cardiovascular: Yes: Regular Rate and Rhythm, S1, S2 Respiratory: Yes: Diminished Gastrointestinal: Yes: Normal Bowel Sounds, Soft. No: Tenderness Labs: CBC, BMP 03/23/17 05:38 03/23/17 05:38 INR, PTT INR 0.93 (0.82-1.09) 03/19/17 20:44 Assessment/Plan Nodular pneumonia AFB (-) x3 HIV/AIDS + C difficile Azotemia D/C AFB isolation Switch to po ceftin 250mg bid x7d Complete 14d course flagyl for C difficile Outpatient follow up with patient's HIV provider
--- NOTE | 2017-03-23 10:55 | PN ---
Progress Note, [employer] CLERK - Note Progress Note: mbs was on hold due to pending results for TB and pt is on Diflucan for delmi. Diet order- soft diet. Pt reports rice sticking-Pt was unsure if near larynx or sternum. She also reported difficulty with pancake and liquid. She reports burning with PO intake. Pt is off isolation. TB (-) Selected Entries 03/21/17 03/21/17 03/21/17 02:00 06:00 10:00 Breakfast Lunch Temperature 100.1 F H 99.5 F 98.2 F 03/21/17 03/21/17 03/21/17 10:24 17:12 21:00 Breakfast 100% Lunch 100% Temperature 99.1 F 03/22/17 03/22/17 03/22/17 02:32 06:28 09:11 Breakfast 100% Lunch Temperature 99.5 F 99.4 F 03/22/17 03/22/17 03/22/17 10:00 14:19 22:00 Breakfast 100% Lunch 100% Temperature 98.9 F 99.8 F H 99.0 F 03/23/17 03/23/17 06:27 09:57 Breakfast 50% Lunch Temperature 98.8 F For MBS today. Will likely need dys ground until delmi resolves.
[2017-03-23] MEDS: BUDESONIDE/FORMETEROL FUMARATE 160/4.5 mcg INHALER IH SCH ×2 (11:10→21:40)
--- NOTE | 2017-03-23 13:09 | MSN ---
Progress Note (short form) - Note Progress Note: Subjective: Patient was seen and examined at the bedside this morning. Patient complains of difficulty swallowing and had diarrhea last night. She states that she feels like rice is stuck in her throat. She states that she is no longer short of breath but she does have an occasional cough. She says she no longer feels sick. Patient denies chills or nausea. Objective: Vital Signs Period Temp Pulse Resp BP Sys/Hoyos Pulse Ox Last 24 Hr 98.8 F-99.8 F 95-100 16-18 119-139/78-90 95 General: Thin, petite female in no acute distress. Head: normocephalic; atraumatic Mouth: White plaque on tongue; Exophytic buccal lesions clustered on oral mucosa. Neck: supple Heart: regular rate and rhythm with normal S1 and S2 Lungs: coarse breath sounds b/l; diminished breath sounds at LLL Abdomen: Normoactive bowel sounds; soft Extremities: warm, well-perfused; no edema Skin: Dry without rashes Laboratory Results - last 24 hr 03/23/17 03/23/17 05:38 05:38 WBC 13.6 H RBC 4.12 Hgb 11.9 Hct 35.2 MCV 85.4 MCHC 33.7 RDW 16.3 H Plt Count 195 MPV 9.1 Sodium 141 Potassium 4.8 Chloride 111 H Carbon Dioxide 18 L Anion Gap 12 BUN 66 H Creatinine 3.0 H Random Glucose 104 D Calcium 8.4 L Assessment and Plan: 56 yr. old female with a history of AIDS, asthma, COPD, CKD, substance abuse, Hep C, HTN, depression presented to the ED from [place] following worsening fever and SOB. 1.) Sepsis secondary to pneumonia * AFB smear-no AFB; stop airborne precautions * Leukocytosis 11.1 (6/6); today 13.6 (03/23) * IV ceftriaxone 1 gm qd for discharge will start ceftin 250 mg bid x 7 days * PCP ppx atovaquone * Serology for histoplasma; crytococcus; coccidiosis * Blood cultures negative 2.) Diarrhea * C. diff antigen positive; C. diff toxin negative * Began Flagyl due to immunocompromised state (CD4 count 45 in 2016 (per nurse case manager)-continue if 14 day course * Discontinue if C. diff PCR is negative 3.) AIDS * CD4 count and HIV RNA PCR pending * Continue home ART * Follow-up with doctor from [facility] 4.) COPD exacerbation * Tapering; now prednisone 40 mg po qd * Continue symbicort, albuterol inhalers 5.) dysphagia and odynophagia * modified barium swallow completed-patient should eat liquids and return soft foods as esophagitis improves with nystatin and fluconazole * Endoscopy if no improvement * Follow up with GI for esophagitis 6.) Buccal lesions * Patient has had painless lesions for several years without bleeding 7.) CHRISTOPHER with CKD * Baseline creatinine around 2.5; now 3.0 * Consult and follow-up with nephrology 8.) HTN * Continue amlodipine 10 mg qd at home 9.) Depression * Continue olanzapine 5 mg po qhs 10.) Dispo * Would like to return to [facility]
[2017-03-23 14:17] LABS: % CD 3 POS. LYMPH. 63.2 % (57.5-86.2); % CD 4 POS LYM 3.6 % (30.8-58.5); %CD3+CD4+CD8+ 0.5 % (Not Estab.); %CD3+CD4+CD8- 3.1 % (Not Estab.); %CD3+CD4-CD8+ 54.1 % (Not Estab.); %CD3+CD4-CD8- 5.5 % (Not Estab.); ABSO. CD 3 316 /uL (622-2402); ABSOLUTE CD 4 HELPER 18 /uL (359-1519); AbsCD3+CD4+CD8+ 3 /uL (Not Estab.); AbsCD3+CD4-CD8+ 271 /uL (Not Estab.); AbsCD3+CD4-CD8- 28 /uL (Not Estab.); CD4/CD8 0.07 (0.92-3.72); CD4/CD8 NYSDOH RATIO 0.06 (Not Estab.); WHITE BLOOD COUNT 13.5 x10E3/uL (3.4-10.8)
[2017-03-23 14:17] LABS: LOG10 HIV-1 RNA 2.934 (.)
--- NOTE | 2017-03-23 14:43 | DS ---
Physical Exam: SUBJECTIVE: Patient seen and examined at bed side this morning. NO complaints. Says difficulty in swallowing has improved. Had diarrhoea yesterday but today hasn't had any Bowel movements today. Denies chest pain, sob, cough, palpitation , abdominal pain, nausea or vomiting. No acute overnight events. No events recorded in the monitor. OBJECTIVE: Vital Signs Period Temp Pulse Resp BP Sys/Hoyos Pulse Ox Last 24 Hr 98.4 F-99.0 F 92-97 18-18 119-136/78-89 95-96 PHYSICAL EXAM GENERAL: AA female sitting comfortably in bed, awake, alert, and fully oriented , in no acute distress. HEAD: Normal with no signs of trauma. EYES: EOM intact, muddly sclera, no pallor. ENT: Ears normal, moist mucous membranes, whitish layer on the tongue non scrappable; multiple warty growth in the buccal of the mouth, no active bleeding. NECK: Trachea midline, full range of motion, supple, submental LN. LUNGS: Breath sounds equal, scattered rhonchi and wheezes, no crackles, no accessory muscle use. HEART: Regular rate and rhythm, S1, S2 without murmur, rub or gallop. ABDOMEN: Soft, diffuse tenderness, nondistended, normoactive bowel sounds, no guarding, no rebound, no hepatosplenomegaly, no masses. EXTREMITIES: 2+ pulses, warm, well-perfused, no edema. NEUROLOGICAL: Bulk/Tone normal; No facial droop, Cranial nerves II through XII grossly intact, power 5/5 in all extremities. Normal speech, gait not observed. PSYCH: Normal mood, normal affect. SKIN: Warm, dry, normal turgor, no rashes or lesions noted LABS Laboratory Results - last 24 hr 03/21/17 03/21/17 03/23/17 05:38 13:05 05:38 WBC 13.5 H 13.6 H RBC 4.12 Hgb 11.9 Hct 35.2 MCV 85.4 MCHC 33.7 RDW 16.3 H Plt Count 195 MPV 9.1 Absolute Lymphs (auto) 0.5 L Lymphocytes 4 Nucleated RBCs TNP Sodium Potassium Chloride Carbon Dioxide Anion Gap BUN Creatinine Random Glucose Calcium Absolute CD3 Count 316 L % CD3+ Lymphocytes 63.2 Absolute CD4 [place] 18 L % CD4+ Lymphocyte 3.6 L CD4/CD8 Ratio 0.07 L % CD8+ Lymphocyte 54.6 H Absolute CD8 Count 273 HIV-1 RNA Quant 860 HIV-1 RNA (PCR) log10 2.934 03/23/17 05:38 WBC RBC Hgb Hct MCV MCHC RDW Plt Count MPV Absolute Lymphs (auto) Lymphocytes Nucleated RBCs Sodium 141 Potassium 4.8 Chloride 111 H Carbon Dioxide 18 L Anion Gap 12 BUN 66 H Creatinine 3.0 H Random Glucose 104 D Calcium 8.4 L Absolute CD3 Count % CD3+ Lymphocytes Absolute CD4 [place] % CD4+ Lymphocyte CD4/CD8 Ratio % CD8+ Lymphocyte Absolute CD8 Count HIV-1 RNA Quant HIV-1 RNA (PCR) log10 03/20/17 Renal ultrasound: Mild left hydronephrosis. The prevoid volume of the urinary bladder equals 149 cc. The post void residual equals 1 cc. Both right and left ureteral jets identified. No bladder masses seen. The pelvic organs are not well imaged but appears the uterus measures 4.2 x 2.0 x 3.6 cm with an endometrial dimension of 0.7 cm. Left ovary is not identified. Right ovary measures 2.0 x 1.2 x 1.4 cm 03/19/17 CT Chest: There is a 2 cm nodular and patchy consolidation left lingula There is no mediastinal, axillary or hilar lymphadenopathy. There is no thoracic aortic aneurysm. There are no pulmonary nodules or masses. There is no pericardial or pleural effusion. No adrenal masses are seen. There is significant scoliosis HOSPITAL COURSE: Date of Admission:03/19/17 Date of Discharge: 03/23/17 Patient is a 56 year old female with AIDS, asthma, COPD, CKD, drug abuse ( Cocaine/heroin abuse 2 weeks ago), Hep C, sent over from [facility] due with low grade fever and sob. Admitted with the diagnosis of Sepsis secondary to Left lower lobe pneumonia. Treated with IV Ceftriaxone, responding well, leukocytosis improved. Today's leukocytosis could be due to steroid use. Discharging home on Ceftin 250mg PO BID x 7 days. TB was ruled out. Diarrhea: C diff Ag positive with Neg toxin. Started on Flagyl considering patients immunocompromised state and to continue for total of 14 days. AIDS- As per the patient, the latest CD4 count was 45 and viral load was around 40,000.Continue home medication: Ritonavir 100mg PO BID; Lamivudine 150mg PO Daily; Darunavir 600mg PO BID Medical release form was sent to [facility] (her HIV clinic), waiting to get the medical records Mild Left hydronephrosis; CHRISTOPHER with questionable CKD. Lowest creatinine we have in [facility] is 2.1 in 2015. Tried getting the past records from [facility], still waiting. Referred to Nephro (Dr. Taylor) as outpatient. COPD exacerbation- Improved; Likely aggravated by Pneumonia. Solu-medrol 40mg PO Daily and to taper it. Continue Symbicort, Albuterol Inhalers Avascular necrosis of left femoral head with moderate degneration of left hip joint. Patient said she is aware of the avascular necrosis and her physician had recommended hip replacement. Spoke with Dr. Tran over the phone, doesn't need MRI now. Referred to Dr. Tran. Drug abuse (Cocaine/heroin abuse 2 weeks ago) Counseling, Plan is to send to [facility] for rehab Hyperkalemia with EKG changes- Resolved. Buccal muscosa lesions: Patient says she had these warty like growths since 2 years, painless, no active bleeding. Whitish layer in the tongue- less likely fungal. CHRISTOPHER with CKD. Creatinine 3.1--->3, baseline (2.1 2014). Referred to Dr. Taylor. Dysphagia: Patient mentioned something sticking in her throat. Swallow evaluation was done who recommended: Soft diet, thin liquids. Modified barium swallow done today. Could be due to candidiasis. Continue Fluconazole. Also referred to GI (Dr. Brooks) for possible EGD. Hepatitis C Depression: Continue Olanzapine 5mg PO HS Sending the patient to [facility] for drug abuse, spoke with Dr. Fran Denney @ 12:25pm on 03/24/17, he accepted the patient. Plan of care explained to the patient. She verbalized understanding. Case seen and discussed with Dr. Patiño. * Minutes to complete discharge: 45 Discharge Summary Reason For Visit: HX OF AIDS, COPD, HTN Current Active Problems Chronic kidney disease (Acute) Depression (Acute) Esophagitis (Acute) Fever (Acute) Hepatitis C (Acute) Hypokalemia (Acute) Pneumonia (Acute) Weight loss (Acute) COPD (chronic obstructive pulmonary disease) (Chronic) Cocaine dependence (Chronic) HTN (hypertension) (Chronic) Hx of AIDS (Chronic) Opioid dependence (Chronic) Condition: Improved - Instructions Diet, Activity, Other Instructions: You were admitted for the treatment of Pneumonia and Hyperkalemia. Pneumonia was treated with IV antibiotics and now sending you home on Ceftin 250mg PO BID x 7days. Hyperkalemia has resolved. For your diarrhoea, please continue taking Metronidazole 500mg PO TID total of 14 days. For HIV, please f/up with your Infectious doctor (HIV). You mentioned that you are aware you had avascular necrosis of the left hip, please f/up with Dr. Tran (Ortho) You had acute kidney injury with questionable chronic Kidney Disease, please f/ up with Dr. Taylor. Since you have difficulty in swallowing, would recommend you to visit a GI doctor (Dr. Brooks) for possible endoscopy. Return to the Emergency Department if your symptoms worsen or if you develop any new symptoms. Referrals: Gilbert Tran MD [Staff Physician] - 2 Weeks Segundo Brooks MD [Staff Physician] - 1 Week STAFF,NOT ON [Primary Care Provider] - Anali Taylor MD [Staff Physician] - 1 Week [facility]position: [facility] - Home Medications Comprehensive Discharge Medication List: Ambulatory Orders Abacavir Sulfate [Abacavir] 300 mg PO DAILY 01/28/17 Darunavir Ethanolate [Prezista -] 600 mg PO BID 01/28/17 Ritonavir [Norvir -] 100 mg PO BID 01/28/17 Albuterol Sulfate Inhaler - [Ventolin HFA Inhaler -] 2 puff IH Q4H PRN #1 inhaler 02/02/17 Amlodipine Besylate [Norvasc -] 10 mg PO DAILY #30 tablet 02/02/17 Budesonide/Formeterol Fumarate [SYMBICORT 160/4.5mcg -] 2 puff IH BID #1 inhaler 02/02/17 Ferrous Sulfate [Feosol] 325 mg PO BIDWM #60 cap 02/02/17 Megestrol Acetate 400 mg PO BID 03/09/17 Lamivudine [Epivir -] 150 mg PO DAILY 03/17/17 Olanzapine [ZyPREXA -] 5 mg PO HS 03/19/17 Acetaminophen [Pain Relief] 650 mg PO Q4H PRN 03/20/17 Albuterol 2.5/Ipratropium 0.5 [Duoneb -] 1 neb NEB Q4H PRN 03/20/17 Diphenhydramine [Benadryl Capsule -] 50 mg PO HSMR1 PRN 03/20/17 Metronidazole 500 mg PO TID #39 tablet 03/23/17 Cefuroxime Axetil [Ceftin] 250 mg PO BID #14 susp.recon 03/24/17 - Discharge Referral [facility]erred to [facility] No
--- NOTE | 2017-03-23 19:19 | PN ---
Teaching Attending Note Name of Resident: Josey Hill ATTENDING PHYSICIAN STATEMENT I saw and evaluated the patient. I reviewed the resident's note and discussed the case with the resident. I agree with the resident's findings and plan as documented. SUBJECTIVE: Patient is feeling better with no acute distress. Denies any fever or chills, no shortness of breath. no headache. OBJECTIVE: Vital Signs Temperature 98.4 F 03/23/17 14:00 Pulse Rate 94 H 03/23/17 14:39 Respiratory Rate 18 03/23/17 14:00 Blood Pressure 127/84 03/23/17 14:00 O2 Sat by Pulse Oximetry (%) 96 03/23/17 14:39 CBCD WBC 13.6 K/mm3 (4.0-10.0) H 03/23/17 05:38 RBC 4.12 M/mm3 (3.60-5.2) 03/23/17 05:38 Hgb 11.9 GM/dL (10.7-15.3) 03/23/17 05:38 Hct 35.2 % (32.4-45.2) 03/23/17 05:38 MCV 85.4 fl (80-96) 03/23/17 05:38 MCHC 33.7 g/dl (32.0-36.0) 03/23/17 05:38 RDW 16.3 % (11.6-15.6) H 03/23/17 05:38 Plt Count 195 K/MM3 (134-434) 03/23/17 05:38 MPV 9.1 fl (7.5-11.1) 03/23/17 05:38 CMP Sodium 141 mmol/L (136-145) 03/23/17 05:38 Potassium 4.8 mmol/L (3.5-5.1) 03/23/17 05:38 Chloride 111 mmol/L (98-107) H 03/23/17 05:38 Carbon Dioxide 18 mmol/L (21-32) L 03/23/17 05:38 Anion Gap 12 (8-16) 03/23/17 05:38 BUN 66 mg/dL (7-18) H 03/23/17 05:38 Creatinine 3.0 mg/dL (0.55-1.02) H 03/23/17 05:38 Creat Clearance w eGFR 19.11 (>60) 03/19/17 20:44 Random Glucose 104 mg/dL (74-106) D 03/23/17 05:38 Calcium 8.4 mg/dL (8.5-10.1) L 03/23/17 05:38 Total Bilirubin 0.4 mg/dL (0.2-1.0) D 03/19/17 20:44 AST 24 U/L (15-37) 03/19/17 20:44 ALT 50 U/L (12-78) 03/19/17 20:44 Alkaline Phosphatase 54 U/L (45-117) 03/19/17 20:44 Total Protein 7.7 g/dl (6.4-8.2) 03/19/17 20:44 Albumin 2.6 g/dl (3.4-5.0) L 03/19/17 20:44 Current Medications Generic Name Dose Route Start Last Admin Trade Name Freq PRN Reason Stop Dose Admin Abacavir Sulfate 300 mg 03/20/17 10:00 03/23/17 09:06 Ziagen - PO 300 mg DAILY PALOMA Administration Acetaminophen 650 mg 03/20/17 02:10 03/23/17 18:46 Tylenol - PO 650 mg Q4H PRN Administration FEVER OR PAIN Albuterol Sulfate 2 puff 03/20/17 02:08 Ventolin Hfa Inhaler - IH Q4H PRN ASTHMA Albuterol/Ipratropium 1 amp 03/20/17 06:00 03/23/17 17:01 Duoneb - NEB 1 amp QIDR PALOMA Administration Albuterol/Ipratropium 1 amp 03/20/17 11:35 03/23/17 11:40 Duoneb - NEB 1 amp Q6H PRN Administration SHORTNESS OF BREATH Amlodipine Besylate 10 mg 03/20/17 10:00 03/23/17 09:06 Norvasc - PO 10 mg DAILY PALOMA Administration Atovaquone 1,500 mg 03/20/17 08:00 03/23/17 09:06 Mepron - PO 1,500 mg DAILY@0800 PALOMA Administration Budesonide/Formoterol Fumarate 1 puff 03/20/17 11:45 03/23/17 11:10 Symbicort 160/4.5mcg - IH Not Given BID [facility] Ceftriaxone Sodium 1 gm 03/20/17 10:00 03/23/17 09:06 Rocephin 1gm Ivpb (Pre-Docked) IVPB 1 gm DAILY PALOMA Administration Darunavir 600 mg 03/20/17 10:00 03/23/17 09:06 Prezista - PO 600 mg BID PALOMA Administration Diphenhydramine HCl 50 mg 03/20/17 02:10 03/22/17 21:53 Benadryl - PO 50 mg HS PRN Administration INSOMNIA Ferrous Sulfate 325 mg 03/20/17 08:00 03/23/17 18:46 Feosol - PO 325 mg BIDWM PALOMA Administration Fluconazole 100 mg 03/22/17 10:00 03/23/17 09:06 Diflucan - PO 100 mg DAILY PALOMA Administration Heparin Sodium (Porcine) 5,000 unit 03/21/17 14:00 03/23/17 14:11 Heparin - SQ Not Given TID PALOMA Lamivudine 150 mg 03/20/17 10:00 03/23/17 09:07 Epivir - PO 150 mg DAILY PALOMA Administration Metronidazole 500 mg 03/22/17 22:00 03/23/17 14:11 Flagyl - PO 500 mg TID PALOMA Administration Olanzapine 5 mg 03/20/17 02:45 03/22/17 21:54 Zyprexa - PO 5 mg HS PALOMA Administration Prednisone 40 mg 03/23/17 10:00 03/23/17 09:06 Deltasone - PO 40 mg DAILY PALOMA Administration Ritonavir 100 mg 03/20/17 10:00 03/23/17 09:06 Norvir - PO 100 mg BID PALOMA Administration Home Medications Medication Instructions Recorded Abacavir Sulfate [Abacavir] 300 mg PO DAILY 01/28/17 Darunavir Ethanolate [Prezista -] 600 mg PO BID 01/28/17 Ritonavir [Norvir -] 100 mg PO BID 01/28/17 Albuterol Sulfate Inhaler - 2 puff IH Q4H PRN #1 inhaler 02/02/17 [Ventolin HFA Inhaler -] Amlodipine Besylate [Norvasc -] 10 mg PO DAILY #30 tablet 02/02/17 Budesonide/Formeterol Fumarate 2 puff IH BID #1 inhaler 02/02/17 [SYMBICORT 160/4.5mcg -] Ferrous Sulfate [Feosol] 325 mg PO BIDWM #60 cap 02/02/17 Megestrol Acetate 400 mg PO BID 03/09/17 Lamivudine [Epivir -] 150 mg PO DAILY 03/17/17 Olanzapine [ZyPREXA -] 5 mg PO HS 03/19/17 Acetaminophen [Pain Relief] 650 mg PO Q4H PRN 03/20/17 Albuterol 2.5/Ipratropium 0.5 1 neb NEB Q4H PRN 03/20/17 [Duoneb -] Diphenhydramine [Benadryl Capsule 50 mg PO HSMR1 PRN 03/20/17 -] Metronidazole 500 mg PO TID #39 tablet 03/23/17 Prednisone 40 mg PO ASDIR #29 tablet 03/23/17 Cefuroxime Axetil [Ceftin] 250 mg PO BID #14 susp.recon 03/24/17 PE: per resident's note ASSESSMENT AND PLAN: Patient is a 56 y/o lady with h/o AIDS, COPD ,anemia , HTN, Hep C , h/o noncompliance and substance abuse ( heroin and cocaine last used 2 weeks ago ) , she presented from [facility] with SOB and productive cough with fevers for 2 weeks . she was found to have LLL PNA with COPD exacerbation # s/p Sepsis due to LLL PNA: on IV antibiotic Rocephin improved Sputum AFB smear Neg x2 , 3rd one is pending. ID is o the case # Acute Diarrhea: with positive C diff Ag with Neg toxin. on Flagyl continue since patient is immunocompromised ,C diff PCR is pending. # Acute COPD exacerbation due to PNA : improved on po prednisone once daily continue. Duo-NEbs, cont symbicort #AIDS: Low CD4 count , cont her meds # possible esophageal thrush s/p MBS, continue Diflucan # Avascular necrosis of L femoral head : patient is aware and was told that she needs to have a total hip replacement surgery # CKD : Cr at base line ;US with mild left hydronephrosis. CT scan with no hydro and no masses or enlarged Lymph nodes # s/p acute hyperkalemia with EKG changes resolved DVT px :heparin patient would like to go back to detox rehab.
[2017-03-23] MEDS: OLANZapine 5 MG TABLET PO SCH (21:37)
[2017-03-23] MEDS: diphenhydrAMINE HCL 25 MG CAPSULE (FP) PO PRN (21:38)
[2017-03-23] MEDS: BENZOCAINE/MENTH/CETYLPYRD CL 1 EACH LOZENGE MM PRN (22:24)
[2017-03-24] MEDS: ALBUTEROL SO4 2.5/IPRATROPIUM 0.5 INH SOL 3 ML VIAL.NEB. NEB SCH ×3 (00:21→11:08)
[2017-03-24] MEDS: HEPARIN NA (PORCINE) 5,000 UNITS/ML 1ML VIAL SQ SCH ×2 (05:26→14:07)
[2017-03-24] MEDS: BENZOCAINE/MENTH/CETYLPYRD CL 1 EACH LOZENGE MM PRN (05:28)
[2017-03-24] MEDS: ACETAMINOPHEN 325 MG TABLET (FP) PO PRN (05:28)
[2017-03-24] MEDS: metroNIDAZOLE 250 MG TABLET PO SCH ×2 (05:28→14:11)
[2017-03-24] MEDS ORDERED: PT OWN MED DRAWER 7, Y5N ONE ×2 (06:09→08:51)
[2017-03-24 07:23] LABS: MCH 28.5 pg (25.7-33.7); MCHC 33.6 g/dl (32.0-36.0); MEAN CELL VOLUME 84.9 fl (80-96); MEAN PLT VOLUME 8.8 fl (7.5-11.1); PLATELET COUNT 199 K/MM3 (134-434); RDW 16.2 % (11.6-15.6); WHITE BLOOD COUNT 12.8 K/mm3 (4.0-10.0)
[2017-03-24 07:44] LABS: CALCIUM 8.4 mg/dL (8.5-10.1)
[2017-03-24 07:45] LABS: COCKROFT - GAULT 14.858; CREATININE 3.1 mg/dL (0.55-1.02)
[2017-03-24] MEDS: FLUCONAZOLE 100 MG TABLET (UD) PO SCH (09:22)
[2017-03-24] MEDS: ABACAVIR SULFATE 300 MG TABLET PO SCH (09:23)
[2017-03-24] MEDS: amLODIPine BESYLATE 10 MG TABLET (FP) PO SCH (09:23)
[2017-03-24] MEDS: ATOVAQUONE 750 MG/5 ML (UNIT-DOSE PACKAGING) PO SCH (09:23)
[2017-03-24] MEDS: predniSONE 20 MG TABLET (UD) PO SCH (09:23)
[2017-03-24] MEDS: lamiVUDine 150 MG TABLET PO SCH (09:24)
[2017-03-24] MEDS: RITONAVIR 100 MG TABLET PO SCH (09:25)
[2017-03-24] MEDS: FERROUS SO4 325 MG TABLET (FP) PO SCH (09:25)
[2017-03-24] MEDS: DARUNAVIR ETHANOLATE 600 MG TAB PO SCH (09:25)
[2017-03-24] MEDS: BUDESONIDE/FORMETEROL FUMARATE 160/4.5 mcg INHALER IH SCH (09:28)
[2017-03-24] MEDS: cefTRIAXone 1 GM/50 ML BAG (PRE-DOCKED) IVPB SCH (10:05)
--- NOTE | 2017-03-24 11:35 | CONS ---
DATE OF CONSULTATION: 03/20/2017 HISTORY: The patient is a 56-year-old female with history of acquired immunodeficiency syndrome, polysubstance use, COPD, now evaluated for pneumonia. The patient was at [facility] for detoxification when she was noted to have fever, shortness of breath and dry cough. She was transferred to [facility] where a CT scan of the chest shows a nodular left upper lobe infiltrate. Because of a family history of tuberculosis, she was placed on AFB precautions. Patient reports cough, which is dry in nature. She denies any chest pain or hemoptysis. She denies any high-grade fever or shaking chills. The patient denies any ill contacts or recent hospitalizations. She has a history of HIV; however , is noncompliant with her care. She reports that she has been recently using drugs and was not taking any retroviral therapy or PCP prophylaxis. She reports being followed in the [place] at [facility]. Her last viral markers were from approximately 1 year ago and she reports her viral load was undetectable and the B-cells were 100. Of note, the patient's significant other was diagnosed with tuberculosis many years ago. She denies any fevers, chills, night sweats, or weight loss. PAST MEDICAL HISTORY: Positive for HIV/acquired immunodeficiency syndrome, polysubstance abuse, COPD. ALLERGIES: ASPIRIN. MEDICATIONS: Norvir, Prezista, Epivir. SOCIAL HISTORY: Polysubstance abuser. She is taking both cocaine and heroin. She is a tobacco smoker. Denies recent hospitalizations. She was born in [place] and has been a lifelong resident. Denies foreign travel. REVIEW OF SYSTEMS: Neurologic: No loss of consciousness, seizure activity, or focal weakness. Cardiac: Negative chest pain or palpitations. Respiratory: As per HPI. Gastrointestinal: Negative for vomiting or diarrhea. Genitourinary: Negative for urinary tract infection. LABORATORY DATA: White count 19.4, hematocrit 35.0, platelet count 169, BUN 40, creatinine 3.0. PHYSICAL EXAMINATION: General: She is awake and alert. She is not acutely intoxicated. Vital signs: Temperature 99.8, Temperature max was 100.3. HEENT: Sclerae anicteric. Oropharynx was positive for thrush. Neck: Supple. No palpable nodes Heart: S1, S2. Lungs: Scattered rhonchi. Abdomen: Soft. No tenderness was noted. No mass, rebound, or rigidity. Extremities: Negative for edema. IMPRESSION: 1. Acute exacerbation of chronic obstructive pulmonary disease. 2. Nodular left upper lobe infiltrate. 3. Acquired immunodeficiency syndrome. 4. Renal failure. PLAN: Appearance of nodular infiltrate with possible early cavitation raises the possibility for AFB disease. I agree with isolation. Obtain sputum AFB, QuantiFERON Gold, CD4 lymphocyte count, empiric antibiotic coverage for community-acquired versus atypical pneumonia with ceftriaxone and Zithromax. Continue steroids and bronchodilators. Antiretroviral therapy, PCP prophylaxis. I will follow. Thank you for the kind referral. PHILL SERRATO M.D. [id number] MTDD
--- NOTE | 2017-03-24 12:34 | PN ---
Progress Note (short form) - Note Progress Note: Please refer to Discharge summary- 03/23/17. Dr. Fran Mitchell accepted the patient , sending the patient to [facility].
--- NOTE | 2017-03-24 13:20 | DS ---
Physical Exam: SUBJECTIVE: Patient seen and examined at bed side this morning. NO complaints. Says difficulty in swallowing has improved. Had diarrhoea yesterday but today hasn't had any Bowel movements today. Denies chest pain, sob, cough, palpitation , abdominal pain, nausea or vomiting. No acute overnight events. No events recorded in the monitor. OBJECTIVE: Vital Signs Period Temp Pulse Resp BP Sys/Hoyos Pulse Ox Last 24 Hr 97.8 F-98.8 F 90-115 18-20 121-141/84-92 95-97 PHYSICAL EXAM GENERAL: AA female sitting comfortably in bed, awake, alert, and fully oriented , in no acute distress. HEAD: Normal with no signs of trauma. EYES: EOM intact, muddly sclera, no pallor. ENT: Ears normal, moist mucous membranes, whitish layer on the tongue non scrappable; multiple warty growth in the buccal of the mouth, no active bleeding. NECK: Trachea midline, full range of motion, supple, submental LN. LUNGS: Breath sounds equal, scattered rhonchi and wheezes, no crackles, no accessory muscle use. HEART: Regular rate and rhythm, S1, S2 without murmur, rub or gallop. ABDOMEN: Soft, diffuse tenderness, nondistended, normoactive bowel sounds, no guarding, no rebound, no hepatosplenomegaly, no masses. EXTREMITIES: 2+ pulses, warm, well-perfused, no edema. NEUROLOGICAL: Bulk/Tone normal; No facial droop, Cranial nerves II through XII grossly intact, power 5/5 in all extremities. Normal speech, gait not observed. PSYCH: Normal mood, normal affect. SKIN: Warm, dry, normal turgor, no rashes or lesions noted LABS Laboratory Results - last 24 hr 03/21/17 03/21/17 03/21/17 05:38 12:50 13:05 WBC 13.5 H RBC Hgb Hct MCV MCHC RDW Plt Count MPV Absolute Lymphs (auto) 0.5 L Lymphocytes 4 Nucleated RBCs TNP Sodium Potassium Chloride Carbon Dioxide Anion Gap BUN Creatinine Random Glucose Calcium Absolute CD3 Count 316 L % CD3+ Lymphocytes 63.2 Absolute CD4 Canadensis 18 L % CD4+ Lymphocyte 3.6 L CD4/CD8 Ratio 0.07 L % CD8+ Lymphocyte 54.6 H Absolute CD8 Count 273 HIV-1 RNA Quant 860 HIV-1 RNA (PCR) log10 2.934 Pneumocyst carinii Smear Cancelled 03/24/17 03/24/17 05:35 05:35 WBC 12.8 H RBC 4.16 Hgb 11.9 Hct 35.3 MCV 84.9 MCHC 33.6 RDW 16.2 H Plt Count 199 MPV 8.8 Absolute Lymphs (auto) Lymphocytes Nucleated RBCs Sodium 143 Potassium 4.2 Chloride 113 H Carbon Dioxide 17 L Anion Gap 13 BUN 65 H Creatinine 3.1 H Random Glucose 98 Calcium 8.4 L Absolute CD3 Count % CD3+ Lymphocytes Absolute CD4 Canadensis % CD4+ Lymphocyte CD4/CD8 Ratio % CD8+ Lymphocyte Absolute CD8 Count HIV-1 RNA Quant HIV-1 RNA (PCR) log10 Pneumocyst carinii Smear Abnormal Lab Results HOSPITAL COURSE: Date of Admission:03/19/17 Date of Discharge: 03/24/17 03/20/17 Renal ultrasound: Mild left hydronephrosis. The prevoid volume of the urinary bladder equals 149 cc. The post void residual equals 1 cc. Both right and left ureteral jets identified. No bladder masses seen. The pelvic organs are not well imaged but appears the uterus measures 4.2 x 2.0 x 3.6 cm with an endometrial dimension of 0.7 cm. Left ovary is not identified. Right ovary measures 2.0 x 1.2 x 1.4 cm 03/19/17 CT Chest: There is a 2 cm nodular and patchy consolidation left lingula There is no mediastinal, axillary or hilar lymphadenopathy. There is no thoracic aortic aneurysm. There are no pulmonary nodules or masses. There is no pericardial or pleural effusion. No adrenal masses are seen. There is significant scoliosis HOSPITAL COURSE: Date of Admission:03/19/17 Date of Discharge: 03/23/17 Patient is a 56 year old female with AIDS, asthma, COPD, CKD, drug abuse ( Cocaine/heroin abuse 2 weeks ago), Hep C, sent over from [facility] due with low grade fever and sob. Admitted with the diagnosis of Sepsis secondary to Left lower lobe pneumonia. Treated with IV Ceftriaxone, responding well, leukocytosis improved. Today's leukocytosis could be due to steroid use. Discharging home on Ceftin 250mg PO BID x 6 more days. TB was ruled out. Diarrhea: C diff Ag positive with Neg toxin. Started on Flagyl considering patients immunocompromised state and to continue for total of 14 days. AIDS- CD4 Canadensis- 18; CD8 +Lymphocyte 54.6; CD4/CD8 ratio 0.07 Continue home medication: Ritonavir 100mg PO BID; Lamivudine 150mg PO Daily; Darunavir 600mg PO BID For MAC prophylaxis: Azithromycin 1200mg PO once a week x 4 weeks and to follow up with her physician at HIV clinic for further management. Medical release form was sent to [facility] (her HIV clinic), they didn't send the medical records Mild Left hydronephrosis; CHRISTOPHER with questionable CKD. Lowest creatinine we have in [facility] is 2.1 in 2015. Tried getting the past records from [facility], still waiting. Referred to Nephro (Dr. Taylor) as outpatient. COPD exacerbation- Improved; Likely aggravated by Pneumonia. Solu-medrol 40mg PO Daily and to taper it. Continue Symbicort, Albuterol Inhalers Avascular necrosis of left femoral head with moderate degneration of left hip joint. Patient said she is aware of the avascular necrosis and her physician had recommended hip replacement. Spoke with Dr. Tran over the phone, doesn't need MRI now. Referred to Dr. Tran. Drug abuse (Cocaine/heroin abuse 2 weeks ago) Counseling, Plan is to send to [facility] for rehab Hyperkalemia with EKG changes- Resolved. Buccal muscosa lesions: Patient says she had these warty like growths since 2 years, painless, no active bleeding. Whitish layer in the tongue- less likely fungal. CHRISTOPHER with CKD. Creatinine 3.1--->3, baseline (2.1 2014). Referred to Dr. Taylor. Dysphagia: Patient mentioned something sticking in her throat. Swallow evaluation was done who recommended: Soft diet, thin liquids. Modified barium swallow done today. Could be due to candidiasis. Continue Fluconazole. Also referred to GI (Dr. Brooks) for possible EGD. Hepatitis C Depression: Continue Olanzapine 5mg PO HS Sending the patient to [facility] residential rehab for drug abuse, spoke with Dr. Fran Denney @ 12:25pm on 03/24/17, he accepted the patient. Plan of care explained to the patient. She verbalized understanding. Case seen and discussed with Dr. Patiño. * Minutes to complete discharge: 45 Discharge Summary Reason For Visit: HX OF AIDS, COPD, HTN Current Active Problems Fever (Acute) Pneumonia (Acute) COPD (chronic obstructive pulmonary disease) (Chronic) Chronic kidney disease (Chronic) Cocaine dependence (Chronic) Depression (Chronic) Esophagitis (Chronic) HTN (hypertension) (Chronic) Hepatitis C (Chronic) Hx of AIDS (Chronic) Hypokalemia (Chronic) Opioid dependence (Chronic) Weight loss (Chronic) Condition: Improved - Instructions Diet, Activity, Other Instructions: You were admitted for the treatment of Pneumonia and Hyperkalemia. Pneumonia was treated with IV antibiotics and now sending you home on Ceftin 250mg PO BID x 7days. Hyperkalemia has resolved. For COPD exacerbation, please continue taking the steroids with tapering doses as instructed: Take 40mg of prednisone x 3 days, 30 mg x 3 days, 20 mg x 3 days then 10mg once (total of 10 days) For your diarrhoea, please continue taking Metronidazole 500mg PO TID total of 14 days. For HIV, please f/up with your Infectious doctor (HIV). You mentioned that you are aware you had avascular necrosis of the left hip, please f/up with Dr. Tran (Ortho) You had acute kidney injury with questionable chronic Kidney Disease, please f/ up with Dr. Taylor. Since you have difficulty in swallowing, would recommend you to visit a GI doctor (Dr. Brooks) for possible endoscopy. Return to the Emergency Department if your symptoms worsen or if you develop any new symptoms. Referrals: Gilbert Tran MD [Staff Physician] - 2 Weeks Segundo Brooks MD [Staff Physician] - 1 Week STAFF,NOT ON [Primary Care Provider] - Anali Taylor MD [Staff Physician] - 1 Week Disposition: [facility] - Home Medications Comprehensive Discharge Medication List: Ambulatory Orders Abacavir Sulfate [Abacavir] 300 mg PO DAILY 01/28/17 Darunavir Ethanolate [Prezista -] 600 mg PO BID 01/28/17 Ritonavir [Norvir -] 100 mg PO BID 01/28/17 Albuterol Sulfate Inhaler - [Ventolin HFA Inhaler -] 2 puff IH Q4H PRN #1 inhaler 02/02/17 Amlodipine Besylate [Norvasc -] 10 mg PO DAILY #30 tablet 02/02/17 Budesonide/Formeterol Fumarate [SYMBICORT 160/4.5mcg -] 2 puff IH BID #1 inhaler 02/02/17 Ferrous Sulfate [Feosol] 325 mg PO BIDWM #60 cap 02/02/17 Megestrol Acetate 400 mg PO BID 03/09/17 Lamivudine [Epivir -] 150 mg PO DAILY 03/17/17 Olanzapine [ZyPREXA -] 5 mg PO HS 03/19/17 Acetaminophen [Pain Relief] 650 mg PO Q4H PRN 03/20/17 Albuterol 2.5/Ipratropium 0.5 [Duoneb -] 1 neb NEB Q4H PRN 03/20/17 Diphenhydramine [Benadryl Capsule -] 50 mg PO HSMR1 PRN 03/20/17 Cefuroxime Axetil [Cefuroxime] 250 mg PO BID #12 tablet 03/24/17 Metronidazole [Flagyl -] 500 mg PO TID #37 tablet 03/24/17 Prednisone [Deltasone] 40 mg PO ASDIR #10 tablet 03/24/17 This patient is new to me today: No Emergency Visit: Yes ED Registration Date: 03/19/17 Care time: The patient presented to the Emergency Department on the above date and was hospitalized for further evaluation of their emergent condition. Critical Care patient: No - Discharge Referral Referred to [facility] No
[2017-03-24 14:19] VITALS: BP 132/88; PULSE 101; TEMP 98.4
--- NOTE | 2017-03-24 18:53 | PN ---
Teaching Attending Note Name of Resident: Josey Hill ATTENDING PHYSICIAN STATEMENT I saw and evaluated the patient. I reviewed the resident's note and discussed the case with the resident. I agree with the resident's findings and plan as documented. SUBJECTIVE: Patient is comfortable would like to go back to detox rehab. OBJECTIVE: Vital Signs Temperature 98.4 F 03/24/17 14:18 Pulse Rate 101 H 03/24/17 14:18 Respiratory Rate 20 03/24/17 14:18 Blood Pressure 132/88 03/24/17 14:18 O2 Sat by Pulse Oximetry (%) 97 03/24/17 11:07 CBCD WBC 12.8 K/mm3 (4.0-10.0) H 03/24/17 05:35 RBC 4.16 M/mm3 (3.60-5.2) 03/24/17 05:35 Hgb 11.9 GM/dL (10.7-15.3) 03/24/17 05:35 Hct 35.3 % (32.4-45.2) 03/24/17 05:35 MCV 84.9 fl (80-96) 03/24/17 05:35 MCHC 33.6 g/dl (32.0-36.0) 03/24/17 05:35 RDW 16.2 % (11.6-15.6) H 03/24/17 05:35 Plt Count 199 K/MM3 (134-434) 03/24/17 05:35 MPV 8.8 fl (7.5-11.1) 03/24/17 05:35 CMP Sodium 143 mmol/L (136-145) 03/24/17 05:35 Potassium 4.2 mmol/L (3.5-5.1) 03/24/17 05:35 Chloride 113 mmol/L (98-107) H 03/24/17 05:35 Carbon Dioxide 17 mmol/L (21-32) L 03/24/17 05:35 Anion Gap 13 (8-16) 03/24/17 05:35 BUN 65 mg/dL (7-18) H 03/24/17 05:35 Creatinine 3.1 mg/dL (0.55-1.02) H 03/24/17 05:35 Creat Clearance w eGFR 19.11 (>60) 03/19/17 20:44 Random Glucose 98 mg/dL (74-106) 03/24/17 05:35 Calcium 8.4 mg/dL (8.5-10.1) L 03/24/17 05:35 Total Bilirubin 0.4 mg/dL (0.2-1.0) D 03/19/17 20:44 AST 24 U/L (15-37) 03/19/17 20:44 ALT 50 U/L (12-78) 03/19/17 20:44 Alkaline Phosphatase 54 U/L (45-117) 03/19/17 20:44 Total Protein 7.7 g/dl (6.4-8.2) 03/19/17 20:44 Albumin 2.6 g/dl (3.4-5.0) L 03/19/17 20:44 Home Medications Medication Instructions Recorded Abacavir Sulfate [Abacavir] 300 mg PO DAILY 01/28/17 Darunavir Ethanolate [Prezista -] 600 mg PO BID 01/28/17 Ritonavir [Norvir -] 100 mg PO BID 01/28/17 Albuterol Sulfate Inhaler - 2 puff IH Q4H PRN #1 inhaler 02/02/17 [Ventolin HFA Inhaler -] Amlodipine Besylate [Norvasc -] 10 mg PO DAILY #30 tablet 02/02/17 Budesonide/Formeterol Fumarate 2 puff IH BID #1 inhaler 02/02/17 [SYMBICORT 160/4.5mcg -] Ferrous Sulfate [Feosol] 325 mg PO BIDWM #60 cap 02/02/17 Megestrol Acetate 400 mg PO BID 03/09/17 Lamivudine [Epivir -] 150 mg PO DAILY 03/17/17 Olanzapine [ZyPREXA -] 5 mg PO HS 03/19/17 Acetaminophen [Pain Relief] 650 mg PO Q4H PRN 03/20/17 Albuterol 2.5/Ipratropium 0.5 1 neb NEB Q4H PRN 03/20/17 [Duoneb -] Diphenhydramine [Benadryl Capsule 50 mg PO HSMR1 PRN 03/20/17 -] Azithromycin [Zithromax 600mg 1,200 mg PO WEEKLY #4 tablet 03/24/17 Tablets -] Cefuroxime Axetil [Cefuroxime] 250 mg PO BID #12 tablet 03/24/17 Metronidazole [Flagyl -] 500 mg PO TID #37 tablet 03/24/17 Prednisone [Deltasone] 40 mg PO ASDIR #10 tablet 03/24/17 Laboratory Tests 03/21/17 13:05 Absolute CD3 Count 316 L % CD3+ Lymphocytes 63.2 Absolute CD4 [place] 18 L % CD4+ Lymphocyte 3.6 L CD4/CD8 Ratio 0.07 L % CD8+ Lymphocyte 54.6 H Absolute CD8 Count 273 PE: per resident ASSESSMENT AND PLAN: Patient is a 56 y/o lady with h/o AIDS, COPD ,anemia , HTN, Hep C , h/o noncompliance and substance abuse ( heroin and cocaine last used 2 weeks ago ) , she presented from [facility] with SOB and productive cough with fevers for 2 weeks . she was found to have LLL PNA with COPD exacerbation # s/p Sepsis due to LLL PNA: on IV antibiotic Rocephin improved Sputum AFB smear Neg x 3. ID is on the case, CD4 count 18, will add Azithromax 1200mg po weekly. # s/p Diarrhea: with positive C diff Ag with Neg toxin. on Flagyl will continue since patient is immunocompromised ,C diff PCR is pending. # Acute COPD exacerbation due to PNA : improved on po prednisone once daily continue. Duo-Nebs, cont. symbicort #AIDS: Low CD4 count , cont. her meds, will add zithromaz 1200mg po weekly # Esophageal thrush s/p MBS, continue Diflucan # Avascular necrosis of L femoral head : patient is aware and was told that she needs to have a total hip replacement surgery # CKD : Cr at base line ;US with mild left hydronephrosis. CT scan with no hydro and no masses or enlarged Lymph nodes # s/p acute hyperkalemia with EKG changes resolved patient is going to detox rehab.accepted by
== END 2017-03-24 14:48 | DRG 890 ==
LOC: JER 19:56 → JERBED 22:46 → UNDOADMIN 22:49 → JERBED 22:49 → J4S 03-20 02:09
PROVIDERS: ADMIT Internal Medicine; ATTEND Internal Medicine
DX: A41.9 Sepsis, unspecified organism (principal); J45.909 Unspecified asthma, uncomplicated; D64.9 Anemia, unspecified; B20 Human immunodeficiency virus [HIV] disease; B19.20 Unspecified viral hepatitis C without hepatic coma; R56.9 Unspecified convulsions; F14.10 Cocaine abuse, uncomplicated; F17.210 Nicotine dependence, cigarettes, uncomplicated; J44.1 Chronic obstructive pulmonary disease with (acute) exacerbation; F11.20 Opioid dependence, uncomplicated; R63.4 Abnormal weight loss; Z68.20 Body mass index [BMI] 20.0-20.9, adult; J18.9 Pneumonia, unspecified organism; F32.9 Major depressive disorder, single episode, unspecified; E87.5 Hyperkalemia; I12.9 Hypertensive chronic kidney disease with stage 1 through stage 4 chronic kidney disease, or unspecified chronic kidney disease; N18.9 Chronic kidney disease, unspecified; N17.9 Acute kidney failure, unspecified; B37.81 Candidal esophagitis; R91.1 Solitary pulmonary nodule; N13.30 Unspecified hydronephrosis; A04.7 Enterocolitis due to Clostridium difficile; M87.852 Other osteonecrosis, left femur; R13.19 Other dysphagia
CPT/HCPCS: 36415; 71250-TC; 74176-TC; 74230-TC; 76775-TC; 76856-TC; 80048; 80053; 81003; 81015; 82436; 82570; 83605; 84132; 84133; 84300; 85025; 85027; 85610; 86359; 86360; 86480; 86635; 86738; 87040; 87070; 87102; 87116; 87205; 87206; 87210; 87324; 87449; 87899; 92611-GN; 93005; 93010; 94150; 94640; 99284-25; J1644; Q9967

== ENCOUNTER 2017-03-24 14:53 | Inpatient (IN) | payer OTHER ==
[2017-03-24 15:58] VITALS: BMI 19.1
--- NOTE | 2017-03-24 16:17 | HP ---
ERICH LINDER Rehab Assess/Revision - Admission History Admitted to Rehab from: Medical/Surgical Date of Admission to Rehab: 03/24/17 - Vital signs Vital Signs: Vital Signs Period Temp Pulse Resp BP Sys/Hoyos Pulse Ox Last 24 Hr 97.5 F 115 18 144/95 - Findings Detox History & Physical reviewed: Yes Concur with findings: Yes Comments/Additional Findings: transferred from [facility] to rehab admission as per protocol. treated for pneumonia, discharged with cefuroxime, prednisone, metronidazole
[2017-03-24] MEDS ORDERED: MAGNESIUM CITRATE 300 ML BOTTLE PO PRN (16:35)
[2017-03-24] MEDS ORDERED: guaiFENesin/D-METHORPHAN HB 10 ML UNIT-DOSE CUPS PO PRN (16:35)
[2017-03-24] MEDS ORDERED: ACETAMINOPHEN 325 MG TABLET (FP) PO PRN (16:35)
[2017-03-24] MEDS ORDERED: MAG HYDROX/AL HYDROX/SIMETH 30 ML UNIT-DOSE CUP PO PRN (16:35)
[2017-03-24] MEDS ORDERED: MENTHOL/PHENOL 1 EACH UD MM PRN (16:35)
[2017-03-24] MEDS ORDERED: P-EPHED 60MG/TRIPROLIDI 2.5MG TABLET PO PRN (16:35)
[2017-03-24] MEDS ORDERED: MAGNESIUM HYDROX 2400MG/30ML ORAL SUSPENSION 30 ML CUP PO PRN (16:35)
[2017-03-24] MEDS ORDERED: NICOTINE POLACRILEX 2 MG GUM BUC PRN (16:35)
[2017-03-24] MEDS ORDERED: hydrOXYzine PAMOATE 50 MG CAPSULE (FP) PO PRN (16:35)
[2017-03-24] MEDS ORDERED: ALBUTEROL SO4 6.7 GM HFA INHALER IH PRN (16:44)
[2017-03-24] MEDS ORDERED: ALBUTEROL SO4 2.5/IPRATROPIUM 0.5 INH SOL 3 ML VIAL.NEB. NEB PRN (16:44)
[2017-03-24] MEDS: predniSONE 20 MG TABLET (UD) PO SCH (18:15)
[2017-03-24] MEDS: diphenhydrAMINE HCL 50 MG CAPSULE PO PRN (21:27)
[2017-03-24] MEDS: THIAMINE HCL 100 MG TABLET (FP) PO SCH (21:27)
[2017-03-24] MEDS: metroNIDAZOLE 250 MG TABLET PO SCH (21:30)
[2017-03-24] MEDS: CEFUROXIME AXETIL 250 MG TABLET PO SCH (22:22)
[2017-03-24] MEDS: RITONAVIR 100 MG TABLET PO SCH (22:37)
[2017-03-24] MEDS: MEGESTROL ACETATE 40 MG TABLET PO SCH (22:38)
[2017-03-24] MEDS: DARUNAVIR ETHANOLATE 600 MG TAB PO SCH (22:38)
[2017-03-24] MEDS: BUDESONIDE/FORMETEROL FUMARATE 80/4.5 mcg INHALER IH SCH (22:40)
[2017-03-25] MEDS: LOPERAMIDE HCL 2 MG CAPSULE PO PRN ×2 (01:08→07:34)
[2017-03-25] MEDS: metroNIDAZOLE 250 MG TABLET PO SCH ×3 (06:24→21:40)
[2017-03-25 06:59] VITALS: TEMP 99
[2017-03-25] MEDS: MEGESTROL ACETATE 40 MG TABLET PO SCH ×2 (10:11→21:40)
[2017-03-25] MEDS: PRENATAL VITAMINS W/ FOLIC ACID TABLET (FP) PO SCH (10:11)
[2017-03-25] MEDS: predniSONE 20 MG TABLET (UD) PO SCH (10:12)
[2017-03-25] MEDS: amLODIPine BESYLATE 10 MG TABLET (FP) PO SCH (10:12)
[2017-03-25] MEDS: RITONAVIR 100 MG TABLET PO SCH (10:13)
[2017-03-25] MEDS: NICOTINE 14 MG/24 HOURS TOPICAL PATCH TD SCH (10:13)
[2017-03-25] MEDS: DARUNAVIR ETHANOLATE 600 MG TAB PO SCH ×2 (10:13→21:40)
[2017-03-25] MEDS: ABACAVIR SULFATE 300 MG TABLET PO SCH (10:13)
[2017-03-25] MEDS: BUDESONIDE/FORMETEROL FUMARATE 80/4.5 mcg INHALER IH SCH ×2 (10:14→21:40)
[2017-03-25] MEDS: lamiVUDine 150 MG TABLET PO SCH (10:14)
--- NOTE | 2017-03-25 11:07 | PN ---
[facility] Progress Note Note: C/O diarrhea because of antibiotic.Has oral thrush Vital Signs - 8 hr 03/25/17 03/25/17 03/25/17 03:30 06:58 09:08 Temperature 99.0 F Pulse Rate 103 H 106 H Respiratory 16 18 18 Rate Blood Pressure 135/84 128/91 P : lactobacilus daily Resume diflucan & Mycelex
[2017-03-25] MEDS: LACTOBACILLUS ACIDOPHILUS 1 EACH TAB (FP) PO SCH (11:58)
[2017-03-25] MEDS: FLUCONAZOLE 100 MG TABLET (UD) PO SCH (11:58)
[2017-03-25] MEDS ORDERED: SULFAMETHOXAZOLE/TRIMETHOPRIM 800MG/160MG D.S. TABLET PO ONE (12:00)
[2017-03-25] MEDS: CEFUROXIME AXETIL 250 MG TABLET PO SCH ×2 (12:47→21:40)
[2017-03-25] MEDS: CLOTRIMAZOLE 10 MG TROCHE (FP) PO SCH ×3 (13:16→21:42)
--- NOTE | 2017-03-25 13:19 | HP ---
Psychiatrist Admission - Data Date of interview: 03/25/17 Admission source: [facility],med-surg Identifying data: This is the readmission to [address] [place] [address] for this 56 yo AA female Vital Signs: Vital Signs - 24 hr 03/24/17 03/24/17 03/25/17 15:55 22:19 00:30 Temperature 97.5 F L 98.7 F Pulse Rate 115 H 118 H Respiratory 18 20 16 Rate Blood Pressure 144/95 140/92 03/25/17 03/25/17 03/25/17 03:30 06:58 09:08 Temperature 99.0 F Pulse Rate 103 H 106 H Respiratory 16 18 18 Rate Blood Pressure 135/84 128/91 Allergies/Adverse Reactions: Allergies Allergy/AdvReac Type Severity Reaction Status Date / Time aspirin Allergy Severe Swelling Verified 03/17/17 10:44 Concur with the findings of this exam: Yes - Substance Abuse/Tx History Hx Alcohol Use: No Hx Substance Use: Yes Substance Use Type: Cocaine, Heroin Hx Substance Use Treatment: Yes - Admission Criteria Previous failed treatment: Yes Poor recovery environment: Yes Comorbidities: Yes Lacks judgement: Yes Mental Status Exam - Mental Status Exam Alert and Oriented to: Time, Place, Person Cognitive Function: Grossly Intact Patient Appearance: Unkempt Mood: Anxious, Irritable Affect: Mood Congruent, Labile Patient Behavior: Cooperative Speech Pattern: Clear Voice Loudness: Normal Thought Process: Goal Oriented Thought Disorder: Not Present Hallucinations: Denies Suicidal Ideation: Denies Homicidal Ideation: Denies Insight/Judgement: Fair Sleep: Fair Appetite: Good Muscle strength/Tone: Normal Gait/Station: Normal Psychiatric Findings - Problem List ([place] 1, 2,3) (1) Anemia Status: Chronic (2) Asthma Status: Chronic (3) COPD (chronic obstructive pulmonary disease) Status: Chronic (4) Cannabis abuse Status: Chronic (5) Chronic kidney disease Status: Chronic (6) Cocaine dependence Status: Chronic - Initial Treatment Plan Initial Treatment Plan: Continue Zyprexa 5 mg po hs,start Trazodone 100 mg po hs.Will monitor progress.
[2017-03-25] MEDS ORDERED: PT OWN MED DRAWER 7, Y5N ONE (19:50)
[2017-03-25] MEDS: diphenhydrAMINE HCL 50 MG CAPSULE PO PRN (21:40)
[2017-03-25] MEDS: THIAMINE HCL 100 MG TABLET (FP) PO SCH (21:44)
[2017-03-26] MEDS: metroNIDAZOLE 250 MG TABLET PO SCH (07:05)
[2017-03-26] MEDS: CLOTRIMAZOLE 10 MG TROCHE (FP) PO SCH ×2 (07:06→10:34)
[2017-03-26] MEDS ORDERED: PT OWN MED DRAWER 7, Y5N ONE (09:01)
[2017-03-26 10:08] VITALS: BP 126/88; PULSE 96
[2017-03-26] MEDS: BUDESONIDE/FORMETEROL FUMARATE 80/4.5 mcg INHALER IH SCH (10:26)
[2017-03-26] MEDS: MEGESTROL ACETATE 40 MG TABLET PO SCH (10:27)
[2017-03-26] MEDS: FLUCONAZOLE 100 MG TABLET (UD) PO SCH (10:27)
[2017-03-26] MEDS: LACTOBACILLUS ACIDOPHILUS 1 EACH TAB (FP) PO SCH (10:28)
[2017-03-26] MEDS: PRENATAL VITAMINS W/ FOLIC ACID TABLET (FP) PO SCH (10:28)
[2017-03-26] MEDS: predniSONE 20 MG TABLET (UD) PO SCH (10:28)
[2017-03-26] MEDS: amLODIPine BESYLATE 10 MG TABLET (FP) PO SCH (10:28)
[2017-03-26] MEDS: CEFUROXIME AXETIL 250 MG TABLET PO SCH (10:29)
[2017-03-26] MEDS: lamiVUDine 150 MG TABLET PO SCH (10:29)
[2017-03-26] MEDS: RITONAVIR 100 MG TABLET PO SCH (10:30)
[2017-03-26] MEDS: DARUNAVIR ETHANOLATE 600 MG TAB PO SCH (10:30)
[2017-03-26] MEDS: ABACAVIR SULFATE 300 MG TABLET PO SCH (10:30)
[2017-03-26] MEDS: NICOTINE 14 MG/24 HOURS TOPICAL PATCH TD SCH (10:34)
--- NOTE | 2017-03-26 15:49 | EKG ---
Test Reason : Blood Pressure : / mmHG Vent. Rate : 096 BPM Atrial Rate : 096 BPM P-R Int : 106 ms QRS Dur : 068 ms QT Int : 352 ms P-R-T Axes : 076 019 060 degrees QTc Int : 444 ms SINUS RHYTHM WITH SHORT OR MINIMAL VOLTAGE CRITERIA FOR LVH, MAY BE NORMAL VARIANT BORDERLINE ECG WHEN COMPARED WITH ECG OF 20-MAR-2017 12:40, NO SIGNIFICANT CHANGE WAS FOUND Confirmed by ADELA LINDER, LENI ([id number] on 03/26/2017 3:48:23 PM Referred By: Confirmed By:LENI CHAPMAN MD
[2017-03-27] MEDS ORDERED: predniSONE 10 MG TABLET (UD) PO SCH (10:00)
[2017-03-28] MEDS ORDERED: SULFAMETHOXAZOLE/TRIMETHOPRIM 800MG/160MG D.S. TABLET PO SCH (10:00)
[2017-03-30] MEDS ORDERED: predniSONE 20 MG TABLET (UD) PO SCH (10:00)
[2017-04-02] MEDS ORDERED: predniSONE 20 MG TABLET (UD) PO SCH (10:00)
== END 2017-03-26 13:30 | disposition left against medical advice (07) | DRG 770 ==
LOC: YASAS 14:53 → Y3E 16:44
PROVIDERS: ADMIT Psychiatry & Neurology Psychiatry; ATTEND Psychiatry & Neurology Psychiatry
PROC: HZ42ZZZ Group Counseling for Substance Abuse Treatment, Cognitive-Behavioral (ICD-10-PCS; principal; 2017-03-24)
DX: F14.20 Cocaine dependence, uncomplicated (principal); F12.10 Cannabis abuse, uncomplicated; D64.9 Anemia, unspecified; J45.909 Unspecified asthma, uncomplicated; J44.9 Chronic obstructive pulmonary disease, unspecified; N18.9 Chronic kidney disease, unspecified; B37.0 Candidal stomatitis
CPT/HCPCS: 93005; 93010; J8999